=== PATIENT | female | born 1945 | race Caucasian/White ===

== ENCOUNTER 2024-01-21 15:17 | Inpatient (IN) | payer MEDICARE, OTHER, SELFPAY ==
[2024-01-21] VITALS (7 sets, daily range): BP systolic 129–180; BP diastolic 53–99; BMI 40.4
[2024-01-21 11:44] LABS: % Basophils 0.9 % (0-2); % Eosinophils 4.6 % (0-6); % Immature Granulocytes 1.4 % (0-0.5); % Lymphocytes 8.2 % (20.5-51.1); % Monocytes 6.3 % (1.7-9.3); % Neutrophils 78.6 % (42.2-75.2); Absolute Basophils 0.1 10^3/uL (0-0.2); Absolute Eosinophils 0.7 10^3/uL (0-0.7); Absolute Immature Granulocytes 0.2 10^3/uL (0-0.05); Absolute Lymphocytes 1.2 10^3/uL (1.2-3.4); Absolute Monocytes 0.9 10^3/uL (0.1-0.6); Absolute Neutrophils 11.6 10^3/uL (1.4-6.5); Hematocrit 34.9 % (37.0-47.0); Hemoglobin 11.1 g/dL (12.0-16.0); Mean Corp Hgb Conc. 31.8 g/dL (33.0-37.0); Mean Corpuscular Hgb 26.7 pg (27.0-31.0); Mean Corpuscular Volume 84.1 fL (81.0-99.0); Nucleated Red Blood Cells % 0.4 %; Red Blood Cell Count 4.15 10^6/uL (4.20-5.40); Red Cell Dist. Width 15.9 % (11.5-14.5); White Blood Cell Count 14.7 10^3/uL (4.8-10.8)
[2024-01-21 12:03] LABS: ALT (SGPT) 22 U/L (0-35); AST (SGOT) 34 U/L (14-36); Albumin 3.7 g/dl (3.5-5.0); Alkaline Phosphatase 141 U/L (38-126); Blood Urea Nitrogen 21 mg/dl (7-17); Carbon Dioxide 30 mmol/L (22-30); Chloride 103 mmol/L (98-107); Glucose 94 mg/dl (70-99); Potassium 4.8 mmol/L (3.5-5.1); Sodium 137 mmol/L (135-145); Total Bilirubin 0.8 mg/dl (0.2-1.3); Total Protein 7.5 g/dl (6.3-8.2); eGFR > 60.00
[2024-01-21 12:10] LABS: NT-proBNP 2650 pg/ml
[2024-01-21] MEDS: DILAUDID 0.5 MG IV (13:30)
[2024-01-21] MEDS: ZOSYN 50 IV ×2 (13:30→21:36)
--- NOTE | 2024-01-21 13:44 | ED.GENMED ---
History of Present Illness
General
Chief Complaint: Breathing Problem
Source: patient
Exam Limitations: none
Time Seen by Provider: 01/21/24 11:51
Nursing documentation reviewed up to this point in time: agreed with
Travel History
Have you had any contact with someone who has COVID-19?: No
Do you have any symptoms of coronavirus? Fever > 100 degrees, chills, cough, shortness of breath, sore throat, loss of taste or smell, muscle aches, or headache?: No
History of Present Illness
History of Present Illness:
Patient with history of peripheral vascular disease, status post right lower extremity graft/bypass, presents to ED secondary to nonhealing left heel ulcer with surrounding erythema and swelling. Patient was evaluated in wound care center this
morning and subsequently referred to ED for further evaluation and treatment, including potential for need for IV antibiotics and vascular consultation, with concern for disruption in blood flow. Patient denies fever or chills. Denies chest pain.
Denies shortness of breath. Denies nausea or vomiting. Denies trauma.
Past History
Past History
ED Past Medical History: CAD, HTN, Hypercholesterolemia and Other (OA/RA,)
ED Past Surgical History: Cardiac and Orthopedic
Social History
Tobacco: Non-smoker
Living: with family
Review of Systems
Review of Systems
Allergies reviewed?: Yes
All Other Systems: ROS reviewed and negative except as documented in HPI and ROS
Constitutional: Reports no symptoms
EENT: Reports no symptoms
Respiratory: Reports no symptoms
Cardiac: Reports no symptoms
ABD/GI: Reports no symptoms
: Reports no symptoms
Musculoskeletal: Reports edema
Skin: Reports other (heel ulcer)
Neurological: Reports no symptoms
Phy Exam
Physical Exam
Physical Exam:
Physical Exam
General: mild distress, not acutely ill. afebrile. obese
Head: nc/at. eomi
Neck: supple. no meningeal signs.
Heart: s1/s2 regular rate and rhythm, no murmur. equal radial pulses.
Lungs: no acute respiratory distress. clear bilaterally
Abdomen: normal bowel sounds. not tender.
Neuro: alert and oriented. no focal neurological deficits
Skin: an approx 1cm diameter open ulcer noted over left heel without active drainage, with surrounding erythema, extending upto knee, with tenderness. clear blisters noted on top of left foot, painful to touch. open
ulcer, approx 2cm diameter, noted over right ankle, below medial malleolus, without swelling or drainage. chronic decub noted over upper buttock.
Psychiatric: well kept. interactive and cooperative
Extremities: LLE b/l edema.
Scores
Heart Failure Risk
Heart Failure Risk Score: Not Applicable
Course
Orders/Labs/Results
Orders:
Orders
01/21/24 11:05
EKG [Electrocardiogram (*1)] Urgent
Reason for Study: Shortness of Breath
EKG- Treatment ONCE
01/21/24 11:25
Complete Blood Count/With Diff Urgent
Comprehensive Metabolic Panel Urgent
NT-proBNP Urgent
Blood Culture Urgent
WILNER Source: Blood/Venous
Specimen Description:
01/21/24 11:58
CR Chest - 2 Views Urgent
Comment:
Reason For Exam: sob
01/21/24 13:08
HYDROmorphone [Dilaudid] 0.5 mg IV NOW STA
Piperacillin/Tazo 3.375 Gram [Zosyn] 3.375 gram in 50 ml IV NOW
01/21/24 13:32
Vancomycin [Vancocin] 1,500 mg 0.9% Sodium Chloride [Nss] 20 ml 0.9% Sodium Chloride 250 ml [Nss] 250 ml IV NOW
01/21/24 13:51
Ketorolac [Toradol] 15 mg .ROUTE .STK-MED ONE
01/21/24 13:56
Ketorolac [Toradol] 15 mg IV NOW STA
01/21/24 14:24
US Peripheral Arterial [US Periph Art LOWER Ext w MERRICK] Urgent
Comment:
Reason For Exam: LLE swelling/redness
01/21/24 14:49
Vascular Surgery Consult Routine
Consulting Provider: Atul Jean Baptiste III
Was physician already notified: Yes
Peripheral Venous Lwr Ext Bilat US [US Periph Venous LOWER Ext Carlos] Urgent
Comment:
Reason For Exam: lower ext edema
01/21/24 14:53
Admit/Transfer Patient As Directed
Co-Sign Provider:
Level of Care: Inpatient admission
Assign to:: Medical/Surgical
Physician / Group: Juliette
Diagnosis: LLE Cellulitis
Reason for Hospitalization: IV abx, Wound Consult, Vascular Consult
Expected length of stay greater than two midnights?: Yes
ELOS- Estimated Length of Stay in days: 3
I certify the patient meets the requirements for IP care: Yes
WOUND/OSTOMY CONSULT Routine
Reason for Consult: bilateral feet and buttocks wounds
01/21/24 14:57
Code Status As Directed
Resuscitation Status: Full Code
01/21/24 Dinner
2000 calorie (17 carb) Diabetic
At Your Request: Limited Participation
Diabetic Diet: Cholesterol Lowering
Sodium, 2 Gram
01/21/24 18:00
Atorvastatin [Lipitor] 80 mg PO QPM
01/21/24 18:33
Acetaminophen [Tylenol] 650 mg PO Q4HPRN PRN
Albuterol Nebs [Ventolin Nebules] 2.5 mg INH R Q4HPRN PRN
Dextrose 50%-Water [Dextrose 50% Syringe] 12.5 grams IV Q10CUSE PRN
Enoxaparin Sodium [Lovenox] 40 mg SC QPM
Escitalopram Oxalate [Lexapro] 20 mg PO QPM
Glucagon [GlucaGen] 1 mg IM PRN PRN
Insulin Aspart Corrective Low [Novolog Flexpen-Low Resistance] See Protocol SC AC
Oxycodone [Roxicodone] 5 mg PO Q4HPRN PRN
VANCOMYCIN Pharmacy to Dose [VANCOCIN Pharmacy to Dose] 1 each Pharmacy To Prepare [Call Pharmacy To Prepare] 0 ml IV PER PROTOCOL
01/21/24 18:33
Activity As Directed
Activity Level: Out of Bed- Chair
Bedside Glucose Monitoring As Directed
Frequency: AC&HS
Comment: Change to q6h if pt on TPN, tube feeding or not eating
I&O [Intake/ Output] As Directed
Frequency: q12h
Vital Signs As Directed
Frequency: Per unit guidelines
Weight As Directed
Frequency: Daily
Smoking Cessation Counseling [RESP] Routine
Ot Eval And Treat Routine
Pt Eval And Treat Routine
Activity Level: Out of Bed- Chair
DX Deep Vein Thrombosis Video Routine
01/21/24 20:00
Piperacillin/Tazo 3.375 Gram [Zosyn] 3.375 gram in 50 ml IV Q6H
01/21/24 22:00
Atenolol [Tenormin] 25 mg PO HS
01/22/24 08:00
Aspirin Low Dose EC [Aspir Low (Enteric Coated)] 81 mg PO DAILY
Furosemide [Lasix] 40 mg PO DAILY
Gabapentin [Neurontin] 100 mg PO DAILY
HydrALAZINE [Apresoline] 50 mg PO DAILY
ISOSORBIDE MONOnitrate ER [Imdur (Extended Release)] 60 mg PO DAILY
01/22/24 08:43
Basic Metabolic Panel IN AM
Complete Blood Count/No Diff IN AM
Glycohemoglobin (HgbA1c) IN AM
Abnormal Lab Results
01/21/24
11:25
WBC 14.7 H 10^3/uL
(4.8-10.8)
RBC 4.15 L 10^6/uL
(4.20-5.40)
Hgb 11.1 L g/dL
(12.0-16.0)
Hct 34.9 L %
(37.0-47.0)
MCH 26.7 L pg
(27.0-31.0)
MCHC 31.8 L g/dL
(33.0-37.0)
RDW 15.9 H %
(11.5-14.5)
Abs Immat Gran (auto) 0.2 H 10^3/uL
(0-0.05)
Absolute Neuts (auto) 11.6 H 10^3/uL
(1.4-6.5)
Absolute Monos (auto) 0.9 H 10^3/uL
(0.1-0.6)
Immature Gran % 1.4 H %
(0-0.5)
Neutrophils % 78.6 H %
(42.2-75.2)
Lymphocytes % 8.2 L %
(20.5-51.1)
BUN 21 H mg/dl
(7-17)
Alkaline Phosphatase 141 H U/L
(38-126)
01/21/24 11:25
01/21/24 11:25
Vital Signs
Initial and Last Documented VS:
Initial Vital Signs
Temp Pulse Resp BP Pulse Ox
98.6 F 58 16 173/68 98
01/21/24 11:01 01/21/24 11:01 01/21/24 11:01 01/21/24 11:01 01/21/24 11:01
Last Documented Vital Signs
Temp Pulse Resp BP Pulse Ox
98.1 F 62 16 168/63 91
01/22/24 07:15 01/22/24 07:15 01/22/24 07:15 01/22/24 07:15 01/22/24 07:15
MDM/Problems Addressed
MDM/Problems Addressed:
History and exam concerning for significant cellulitis, along with clinical concern for vascular insufficiency, especially in light of patient's previous history of PAD. Patient will be admitted for IV antibiotics, but will likely require vascular
consultation as inpatient.
Discussed with (vascular) - recommends arterial duplex with MERRICK, to evaluate for potential PAD
*Critical Care Note
Total Time (30-74mins, 75-104mins- exclusive of procedures): Not Applicable
ED Attending Note
-
Portions of this chart may have been created with voice recognition software.� Occasional wrong word or��sound alike� substitutions may have occurred due to the inherent limitations of voice recognition software.
Discharge Plan
Departure
Patient Disposition: Admit
Date of Disposition: 01/21/24
Time of Disposition: 13:52
Presentation/result/management discussed w/ accepting MD/DO: Hospitalist
Discharge Problem:
Cellulitis, Insufficiency, arterial, peripheral
Interventions
Interventions:
*Risk Screen - Suicide Last Done: 01/21/24 11:01
*General Assessment Last Done: 01/21/24 11:01
*Neglect/Abuse Screening Last Done: 01/21/24 11:01
ED- Fall Risk Assessment Last Done: 01/21/24 11:56
*ED COVID-19 Vaccine History Last Done: 01/21/24 11:01
*Nursing Disposition Last Done: 01/21/24 18:34
ED- Cardiac Assessment Last Done: 01/21/24 11:56
ED- Pulmonary Assessment Last Done: 01/21/24 11:56
Discharge Date and Time
Discharge Date/Time: 01/21/24 18:35
[2024-01-21] MEDS: TORADOL 15 MG IV (13:56)
[2024-01-21] MEDS: VANCOCIN 300 ML IV (13:57)
[2024-01-21] MEDS: VANCOCIN 300 MG IV (13:57)
--- NOTE | 2024-01-21 15:01 | HPS.HSE ---
Addendum entered and electronically signed by Netta Segovia MD 01/22/24 07:29:
I saw and examined the patient.
The RAILROAD FIRER's note was reviewed and I agree with the note.
Comment:
78 y/o female with PMH of PAD s/p recent right superficial femoral artery to peroneal artery bypass, COPD, CHF, type II diabetes mellitus, and CAD s/p stent placement in 2019; p/w new dime-sized wound on the patient's left heel. Admit for cellulitis
and likely L PAD.
Check BL arterial US and consult vascular.
Original Note:
Family Physician
-
Family Physician: Danilo Ortiz
Chief Complaint
-
Left Heel Wound
History of Present Illness
Patient is a 78 y/o female with PMH of PAD s/p recent right superficial femoral artery to peroneal artery bypass, COPD, CHF, type II diabetes mellitus, and CAD s/p stent placement in 2019 who present to the ED from wound care facility for suspected
cellulitis of left lower extremity. Patient follows at the wound care monthly. Today patient was noted to have a new dime-sized wound on patient's left heel. Left lower foot was noted with increased erythema and edema, therefore she was referred to
the emergency department for evaluation. She denies fevers, sweats or chills.
Medical History
Past Medical History
Past Medical History: Reports Other
Additional Past Medical History:
Peripheral Artery Disease s/p Right Superficial Femoral Artery to Peroneal Artery Bypass
Coronary Artery Disease s/p SINDHU
Chronic Diastolic Hearty Failure
Essential Hypertension
Hyperlipidemia
Diabetes Mellitus, Type II
COPD
Hepatic Steatosis
Rheumatoid Arthritis
Anxiety/Depression
Overactive Bladder
Class II Obesity
Past Surgical History: Reports Other
Additional Past Surgical History:
Cardiac Stent
Right SFA to Peroneal Artery Bypass
Bilateral Knee Replacement
Lumbar Laminectomy
Social History
Tobacco: Smoker (1/2 ppd)
Alcohol: Daily (3 glasses of wine )
Family History
Family History: Not pertinent
Allergies / Home Medications
Allergies reflects when Allergies were last updated in [employer].
Home Medications with original date entered in [employer]
Allergy/Medication List:
Allergies
Allergy/AdvReac Type Severity Reaction Status Date / Time
amlodipine Allergy Rash Verified 01/21/24 11:01
cat dander Allergy SNEEZING Verified 01/21/24 11:01
house dust Allergy SNEEZING Verified 01/21/24 11:01
levofloxacin [From Levaquin] Allergy foot and Verified 01/21/24 11:01
ankle
swelling
mold Allergy SNEEZING Verified 01/21/24 11:01
pollen extracts Allergy HAYFEVER-SN Verified 01/21/24 11:01
EEZING
venom-honey bee Allergy BEE Verified 01/21/24 11:01
[id number]
NOT CARRY
EPI PEN
Home Medications
atenolol 25 mg tablet 25 mg PO HS Blood pressure 04/30/20
atorvastatin 10 mg tablet 80 mg PO QPM High cholesterol 04/30/20
isosorbide mononitrate 60 mg tablet,extended release 24 hr 60 mg PO DAILY Heart disease/condition 04/30/20
aspirin 81 mg tablet,delayed release 81 mg PO DAILY Blood Clot Prevention/Tx 12/15/21
escitalopram oxalate 20 mg tablet 20 mg PO QPM Depression 12/15/21
Garlique 1 tab PO DAILY Supplement 09/27/23
Probiotic 1 gummy PO DAILY Supplement 09/27/23
Vitamin D3 1 tab PO DAILY Supplement 09/27/23
albuterol sulfate 90 mcg/actuation aerosol inhaler 2 puff inhalation Q4H PRN shortness of breath 09/27/23
coffee extract 100 mg-phosphatidyl serine 100 mg capsule (Neuriva Original) 1 cap PO DAILY Supplement 09/27/23
multivitamin 1 tab PO DAILY Supplement 09/27/23
acetaminophen 325 mg tablet 650 mg PO Q4HPRN PRN mild pain or temp > 100.4 F #30 tabs 10/15/23
bisacodyl 10 mg rectal suppository 10 mg TN DAILYPRN PRN constipation #12 ea 10/15/23
bisacodyl 5 mg tablet,delayed release 10 mg PO DAILYPRN PRN Constipation #30 tabs 10/15/23
furosemide 40 mg tablet 40 mg PO DAILY HF #30 tabs 10/15/23
gabapentin 100 mg capsule 100 mg PO DAILY Neuropathy 01/21/24
hydralazine 50 mg tablet 50 mg PO DAILY HTN 01/21/24
Review of Systems
-
A 12 point ROS was completed and negative except as noted: Yes
Constitutional: Denies Fever or Chills
Respiratory: Denies Cough or Trouble Breathing
Cardiac: Denies Chest Pain or Palpitations
Physical Exam
Vital Signs
Vital Signs
Temp Pulse Resp BP Pulse Ox
98.6 F 59 24 180/57 92
01/21/24 11:01 01/21/24 14:15 01/21/24 14:15 01/21/24 12:00 01/21/24 13:00
Physical Exam
General: Well Nourished and No Apparent Distress
HEENT: NormoCephalic, Moist mucous membranes and Atraumatic
Respiratory: Clear (anteriorly) and Non Labored Respirations
Cardiac: S1/S2 and Regular Rhythm
GI: Soft and Non Tender
Musculoskeletal: No Clubbing, No Cyanosis and Other (Bilateral lower ext edema)
Skin: Dry and Other (bilateral chronic venous stasis changes; bilateral erythema; increased warmth left lower extremity)
Neuro: Awake, Alert, Oriented and Nonfocal/grossly intact
Laboratory Results
-
01/21/24 11:25
01/21/24 11:25
Laboratory Results
Total Bilirubin 0.8 mg/dl (0.2-1.3) 01/21/24 11:25
AST 34 U/L (14-36) 01/21/24 11:25
ALT 22 U/L (0-35) 01/21/24 11:25
Alkaline Phosphatase 141 U/L (38-126) H 01/21/24 11:25
Data Reviewed
-
Lab Data: Labs Reviewed by me
Old Records: Reviewed
Impression/Plan
-
Left Lower Ext Cellulitis with Left Heel Wound concerning for Peripheral Arterial Disease
-Consult Wound Care
-Consult Vascular Surgery
-Check Arterial US with MERRICK
-Check Venous US
-Continue Vancomycin and Zosyn
Peripheral Artery Disease s/p Right Superficial Femoral Artery to Peroneal Artery Bypass
Coronary Artery Disease s/p SINDHU
-Continue Isosorbide
-Continue Aspirin
Chronic Diastolic Hearty Failure
-Continue Lasix
-Monitor Is&Os and Daily Weights
Essential Hypertension
-Continue atenolol and Hydralazine
Hyperlipidemia
-Continue atorvastatin
Diabetes Mellitus, Type II
-Check HgbA1c
-Monitor sugars and continue coverage insulin
Anxiety/Depression
-Continue Lexapro
Class II Obesity
-Affects all aspects of care
Tobacco Use Disorder
-Encourage smoking cessation
DVT proph: Lovenox
Code Status: Full Code
--- NOTE | 2024-01-21 16:13 | CON.VAS ---
Addendum entered and electronically signed by Atul Jean Baptiste III, MD 01/22/24 07:00:
This patient was seen and examined with ASTRID Whaley. I agree with the history and physical exam as well as the assessment and plan. I have the following additions:
Known to the vascular surgery service
Right lower extremity bypass for critical limb threatening ischemia in September
Residual right heel wound
Now with nonhealing wound to the left heel
Critical limb threatening ischemia, left lower extremity
Arterial studies reviewed. Severe peripheral arterial occlusive disease in the left lower extremity with SFA/pop occlusion.
Will plan for left lower extremity arteriogram and possible endovascular intervention on 01/24/2024
She may require open revascularization on the left leg as well
Signed:
Atul Jean Baptiste III, MD
[facility] Vascular Surgery
[phone] (cell)
Original Note:
Consultation
Consultation Request
Date/Time Consultation Performed: 01/21/24 1615
Requesting Provider: Ariel Carmen MD
Performing Provider: Elisa Crawford PA-C for Atul Jean Baptiste MD
Reason for Consultation: Chronic bilateral lower extremity wounds
Medical History
-
Chief Complaint: Bilateral lower extremity swelling, left leg cellulitis with wound
History of Present Illness:
This is a 78-year-old female with a known past medical history for CAD, CHF, COPD, hypertension, diabetes, obesity, peripheral artery disease, and hyperlipidemia who presents to the [place] ED with reports of worsening left lower extremity pain,
new left heel wound, erythema, and edema. HPI contributed by patient and caregiver Lelo at bedside. Patient and Lelo note that roughly 2 to 3 weeks ago patient began to experience worsening left lower extremity pain and swelling. Lelo endorses
that patient was unaware she was only taking half of her prescribed Lasix dose for roughly the past month. Patient is prescribed 40 mg of Lasix but had only been taking 20 mg of Lasix. Lelo suspects this highly contributed to patient's worsening
bilateral lower extremity swelling. Roughly a week ago patient noted worsening erythema and warmth throughout left lower extremity and then roughly 2 to 3 days ago she noted a new heel wound and blistering to the dorsum of her foot. Of note
patient is known to our service as she recently underwent right superficial artery to peroneal artery bypass with ipsilateral reverse greater saphenous on 10/06/[address] Flavio Cutler for ongoing ischemia and tissue loss. Patient caregiver endorse
that following bypass right lower extremity heel wound has been slowly progressing. Patient denies nausea, vomiting, fever, and chills. Patient endorses rest pain style discomfort at left lower extremity, and indicates that she sleeps in recliner
most nights because of pain and leaving the leg dependent significantly improves her discomfort.
Past Medical History
Past Medical History: CAD (PCI), CHF, COPD, HTN, NIDDM and Other (Hyperlipidemia, arthritis, overactive bladder, obesity, hepatic steatosis)
Past Surgical History: Cardiac (Cardiac PCI), Orthopedic (Bilateral knee replacement, lumbar laminectomy) and Other (Right superficial femoral artery to peroneal artery bypass with ipsilateral nonreversed greater saphenous vein 10/06/23)
Social History
Tobacco: Former Smoker
Alcohol: Daily
Allergies / Home Medications
Allergy/AdvReac Type Severity Reaction Status Date / Time
amlodipine Allergy Rash Verified 01/21/24 11:01
cat dander Allergy SNEEZING Verified 01/21/24 11:01
house dust Allergy SNEEZING Verified 01/21/24 11:01
levofloxacin [From Levaquin] Allergy foot and Verified 01/21/24 11:01
ankle
swelling
mold Allergy SNEEZING Verified 01/21/24 11:01
pollen extracts Allergy HAYFEVER-SN Verified 01/21/24 11:01
EEZING
venom-honey bee Allergy BEE Verified 01/21/24 11:01
[id number]
NOT CARRY
EPI PEN
Medication Instructions Recorded Confirmed Type
atenolol 25 mg tablet 25 mg PO HS Blood pressure 04/30/20 01/21/24 History
atorvastatin 10 mg tablet 80 mg PO QPM High cholesterol 04/30/20 01/21/24 History
isosorbide mononitrate 60 mg 60 mg PO DAILY Heart 04/30/20 01/21/24 History
tablet,extended release 24 hr disease/condition
aspirin 81 mg tablet,delayed 81 mg PO DAILY Blood Clot 12/15/21 01/21/24 History
release Prevention/Tx
escitalopram oxalate 20 mg tablet 20 mg PO QPM Depression 12/15/21 01/21/24 History
Garlique 1 tab PO DAILY Supplement 09/27/23 01/21/24 History
Probiotic 1 gummy PO DAILY Supplement 09/27/23 01/21/24 History
Vitamin D3 1 tab PO DAILY Supplement 09/27/23 01/21/24 History
albuterol sulfate 90 mcg/actuation 2 puff inhalation Q4H PRN 09/27/23 01/21/24 History
aerosol inhaler shortness of breath
coffee extract 100 mg-phosphatidyl 1 cap PO DAILY Supplement 09/27/23 01/21/24 History
serine 100 mg capsule (Neuriva
Original)
multivitamin 1 tab PO DAILY Supplement 09/27/23 01/21/24 History
acetaminophen 325 mg tablet 650 mg PO Q4HPRN PRN mild pain or 10/15/23 01/21/24 Rx
temp > 100.4 F #30 tabs
bisacodyl 10 mg rectal suppository 10 mg NM DAILYPRN PRN constipation 10/15/23 01/21/24 Rx
#12 ea
bisacodyl 5 mg tablet,delayed 10 mg PO DAILYPRN PRN Constipation 10/15/23 01/21/24 Rx
release #30 tabs
furosemide 40 mg tablet 40 mg PO DAILY HF #30 tabs 10/15/23 01/21/24 Rx
gabapentin 100 mg capsule 100 mg PO DAILY Neuropathy 01/21/24 01/21/24 History
hydralazine 50 mg tablet 50 mg PO DAILY HTN 01/21/24 01/21/24 History
Review of Systems
-
History Source: Patient
Constitutional: Reports No Symptoms
EENT: Reports No Symptoms
Respiratory: Reports No Symptoms
Cardiac: Reports No Symptoms
Vascular: Reports Leg Pain / Claudication and Other (Left lower extremity rest pain)
Abdomen/GI: Reports No Symptoms
: Reports No Symptoms
Musculoskeletal: Reports No Symptoms
Skin: Reports Other (Left leg cellulitis, with blistering of dorsum foot, bilateral heel wound)
Physical Exam
Vital Signs
Temp Pulse Resp BP Pulse Ox
98.6 F 63 19 144/56 89
01/21/24 11:01 01/21/24 15:00 01/21/24 15:00 01/21/24 14:17 01/21/24 14:38
Lab Results
01/21/24 11:25
01/21/24 11:25
Sle-[id number]-[id number] Pept 2650 pg/ml 01/21/24 11:25
Physical Exam
General: No Apparent Distress and Comfortable
HEENT: Normocephalic, Anicteric and Atraumatic
Respiratory: Non Labored Respirations
Cardiac: Negative JVD
GI: Soft, Non Tender, Non Distended and Other (Rotund)
Musculoskeletal: Edema (Bilateral +2 edema)
Skin: Warm and Other (Bilateral heel wounds)
Neuro: AO x 3
Pulses: Bilateral Femoral: +1, Right Dorsalis Pedis: Doppler (Unable to assess left DP due to blistering on the dorsum) and Bilateral Posterior Tibial: Doppler
Assessment / Plan
-
Assessment: 78-year-old female with peripheral artery disease presenting with new onset left heel wound and left leg pain
Plan:
Will obtain arterial duplex MERRICK/TBI for initial evaluation of peripheral artery disease
Pain management per primary team
Surgery plan per attending
I performed this shared service with the attending. I evaluated the patient [id number] and have entered clinical documentation as shown in the encounter note. I performed the following component(s): history and physical exam. Note that medical
decision making is not final until attested by vascular attending.
--- NOTE | 2024-01-21 16:23 | WOUNDNOTE ---
LEFT HEEL WOUND 1947 MR [id number]
--- NOTE | 2024-01-21 16:25 | WOUNDNOTE ---
BILATERAL LE 1945 MR [id number]
--- NOTE | 2024-01-21 16:26 | WOUNDNOTE ---
RIGHT HEEL1947 MR [id number]
--- NOTE | 2024-01-21 16:26 | WOUNDNOTE ---
SACRUM 1945 MR [id number]
--- NOTE | 2024-01-21 16:40 | WOUNDNOTE ---
WOC RN note: Patient sent over from [facility] with worsening SOB, LE edema, draining wounds. Vascular has also been consulted as patient has had a right SFA in the past. Patient was accompanied by direct care worker and states she has VN for wound care 3x week.
Per her report, she does not always adhere to scheduled medications and wears compression intermittently. She sleeps in recliner at home.
See H&P for complete history.
PMH: Past Medical History:Peripheral Artery Disease s/p Right Superficial Femoral Artery to Peroneal Artery Bypass Coronary Artery Disease s/p SINDHU
HF, Essential Hypertension, Type 2 diabetes, COPD, hepatic steatosis, anxiety/depression, OAB, Obesity, Right SFA to Peroneal Artery Bypass
Bilateral Knee Replacement
Wound Location and type/assessment: Patient admitted with: Left heel stage 3 PI with blue/green drainage, macerated edges. Right heel with stage 2 PI, likely from shoes. Sacrum with stage 2 PI in buttock fold and scattered open areas on buttocks.
The buttocks are covered in thick layer of zinc ointment. Patient describes sleeping in chair and sliding. She uses a scooter as well to get around. Abdominal skin folds with MASD but no fungal appearing rash at this time. Patient has purwick in
place and uses a purwick at home.
Pressure redistribution devices in place: Static Air overlay added to bed. Fiber filled boots ordered.
Plan: Will recommend left heel wound be cleaned with Dakins daily and covered with alginate and foam dressing. Local wound care provided to right heel and sacrum. Instructed patient to avoid sliding in chair and to keep skin folds clean and dry.
Continue to assess skin folds for fungal appearing rash. Patient agreeable to try fiber filled boots. Boots were ordered to patients room. Vascular made aware that fiberfilled boots were ordered. Will confirm orders with hospitalist. Care plan and
discharge instructions updated. Will continue to follow as needed.
Recommend follow up at wound care center upon discharge.
[2024-01-21] MEDS: LEXAPRO 20 MG PO (18:56)
[2024-01-21] MEDS: LOVENOX 40 MG SC (18:56)
[2024-01-21] MEDS: LIPITOR 80 MG PO (18:56)
[2024-01-21] MEDS: ROXICODONE 5 MG PO (18:56)
[2024-01-21 18:59] LABS: Glucose - Point of Care 94 mg/dl (70-99)
[2024-01-21] MEDS: NOVOLOG FLEXPEN-LOW RESISTANCE SC (18:59)
--- NOTE | 2024-01-21 19:18 | PHA.VAN.IN ---
Assessment
- Assessment
Renal Function: Appears similar to baseline (09/27/23 SCR RANGED FROM 0.8-1.3 DURING VANCO ADMINISTRATION )
Concomitant Antimicrobials: ZOSYN
- Previous Dosing Experience
Previous Regimen: DOSING BY RANDOM LEVELS
Date of Regimen: 09/28/23
Provided Trough of: UNKNOWN
Provided AUC of: UNKNOWN
Patient's SCR is: Similar to previous dosing experience
Patient's weight is: Elevated compared to previous dosing experience (09/28/23 WT = 95.25 KG)
Plan
- Plan
Initial / Loading Dose: 2GM
Maintenance Regimen: DOSING BY RANDOM LEVELS
Monitoring: RANDOM VANCOMYCIN LEVEL 01/22/24 AM
Pharmacokinetics Vancomycin I
- -
Patient Age: 78
Patient Sex: Female
Vancomycin Day #: 1
Indication: Skin And Soft Tissue (LLE CELLULITIS/[L] HEEL WOUND )
Height / Weight:
Height 5 ft 4 in
Actual Weight 106.594 kg
Pertinent Past Medical History: SCR SPIKED WITH PRIOR VANCO DOSING
- Vital Signs / Lab Results
Temp Pulse Resp BP Pulse Ox
98.6 F 63 18 147/65 98
01/21/24 19:06 01/21/24 19:06 01/21/24 19:06 01/21/24 19:06 01/21/24 19:06
Lab Results - Hematology
01/21/24
11:25
WBC 14.7 H
Lab Results - Chemistry
01/21/24
11:25
BUN 21 H
Creatinine 0.9
Albumin 3.7
[2024-01-21] MEDS: VANCOCIN HCL 500 MG 100 IV (20:14)
[2024-01-21] MEDS: TENORMIN 25 MG PO (21:43)
[2024-01-21 22:30] LABS: Glucose - Point of Care 111 mg/dl (70-99)
[2024-01-22 00:49] VITALS: BP 129/99
[2024-01-22] MEDS: ZOSYN 50 IV ×4 (01:51→19:46)
[2024-01-22] MEDS: ROXICODONE 5 MG PO ×4 (01:53→23:27)
[2024-01-22] MEDS: VENTOLIN NEBULES 2.5 MG INH (02:14)
[2024-01-22 05:50] VITALS: BMI 40.7
[2024-01-22 07:15] VITALS: BP 168/63
[2024-01-22 08:00] LABS: Glucose - Point of Care 100 mg/dl (70-99)
[2024-01-22] MEDS: NOVOLOG FLEXPEN-LOW RESISTANCE SC ×3 (08:07→17:29)
[2024-01-22] MEDS: IMDUR (EXTENDED RELEASE) 60 MG PO (08:44)
[2024-01-22] MEDS: ASPIR LOW (ENTERIC COATED) 81 MG PO (08:44)
[2024-01-22] MEDS: APRESOLINE 50 MG PO (08:44)
[2024-01-22] MEDS: NEURONTIN 100 MG PO ×3 (08:44→21:30)
[2024-01-22] MEDS: LASIX 40 MG PO (08:44)
[2024-01-22] MEDS: DAKIN'S SOLUTION 0.125% 1/4 STRENGTH 473 ML TOPICAL (08:47)
[2024-01-22 09:05] LABS: Hematocrit 31.6 % (37.0-47.0); Hemoglobin 9.7 g/dL (12.0-16.0); Mean Corp Hgb Conc. 30.7 g/dL (33.0-37.0); Mean Corpuscular Hgb 26.6 pg (27.0-31.0); Mean Corpuscular Volume 86.6 fL (81.0-99.0); Mean Platelet Volume 10.6 fL (7.4-10.4); Platelet Count 480 10^3/uL (130-400); Red Blood Cell Count 3.65 10^6/uL (4.20-5.40); Red Cell Dist. Width 15.8 % (11.5-14.5); White Blood Cell Count 14.9 10^3/uL (4.8-10.8)
[2024-01-22 09:24] LABS: Vancomycin Random 15.3 ug/ml
[2024-01-22 09:28] LABS: Blood Urea Nitrogen 19 mg/dl (7-17); Calcium 8.4 mg/dl (8.4-10.2); Carbon Dioxide 29 mmol/L (22-30); Chloride 102 mmol/L (98-107); Estimated Creatinine Clearance 57 ml/min; Glucose 85 mg/dl (70-99); Potassium 4.4 mmol/L (3.5-5.1); Sodium 134 mmol/L (135-145); eGFR 58.39
[2024-01-22 09:39] LABS: Glycohemoglobin (HgbA1c) 5.9 % (4.0-5.6)
--- NOTE | 2024-01-22 11:04 | PHA.VAN.FU ---
Vancomycin Assessment / Plan
- Assessment
Renal Function: Stable
WBC's are: Trending Up
In the past 24 hrs, patient has been: Afebrile
Concomitant Antimicrobials: piperacillin/tazobactam
- Assessment - Therapeutic Drug Monitoring
Random Level: 15.3 - ( after 2000 mg split loading dose 01/21/24)
- Dosing Plan
Continue: dose by random level
Dosing by Level: Re-dose today (1000 mg x 1 dose)
per last admission; pt does not seem to follow population kinetics, will follow closely
- Monitoring Plan
Random Level: repeat random level am 01/23/24
- Follow Up
Pharmacy will continue to follow.
Vancomycin Follow UP
- -
Patient Age: 78
Patient Sex: Female
Vancomycin Day #: 2
Indication: Skin And Soft Tissue (LLE CELLULITIS/[L] HEEL WOUND )
Height / Weight:
Height 5 ft 4 in
Actual Weight 107.5 kg
Pertinent Past Medical History: SCR SPIKED WITH PRIOR VANCO DOSING
- Vital Signs / Lab Results
Temp Pulse Resp BP Pulse Ox
98.1 F 62 16 168/63 91
01/22/24 07:15 01/22/24 07:15 01/22/24 07:15 01/22/24 07:15 01/22/24 07:15
Lab Results - Hematology
01/21/24 01/22/24
11:25 08:43
WBC 14.7 H 14.9 H
Lab Results - Chemistry
01/21/24 01/22/24
11:25 08:43
BUN 21 H 19 H
Creatinine 0.9 1.0
Estimated Creat Clear 57
Albumin 3.7
Therapeutic Drug Monitoring
Random Vancomycin 15.3 ug/ml 01/22/24 08:43
[2024-01-22 11:58] VITALS: O2SAT 92
[2024-01-22 11:58] LABS: Glucose - Point of Care 146 mg/dl (70-99)
--- NOTE | 2024-01-22 12:29 | W.PN.HOSP.TC ---
Today's Communication/Plan
-
see A/P
Assessment / Plan
Assessment / Plan
HPI: 78 y/o female with PMH of PAD s/p recent right superficial femoral artery to peroneal artery bypass, COPD, CHF, type II diabetes mellitus, CAD s/p stent placement in 2018; presented to the ED from wound care facility for suspected cellulitis of
left lower extremity over the heel area. Left lower foot was noted with increased erythema and edema, therefore she was referred to the emergency department for evaluation.�
She denied fevers, sweats or chills.
A/P:
# Left Lower Ext Cellulitis with nonhealing Left Heel Wound
# Critical limb threatening ischemia of left lower extremity
Consult Wound Care
Vascular Surgery on board, recc left lower extremity arteriogram and possible endovascular intervention on Wednesday01/24/2024. She may require open revascularization on the left leg as well
Of note, Venous US negative for DVT
For now, continue Vancomycin and Zosyn
Pain control with gabapentin (increased from 100 mg HS to TID), added oxycodone and IV Morphine PRN
# h/o Recent Right lower extremity bypass for critical limb threatening ischemia in September 2023
# Residual right heel wound
# Coronary Artery Disease s/p SINDHU
Continue Isosorbide
Continue Aspirin
# Chronic Diastolic Hearty Failure
Continue Lasix
Monitor Is&Os and Daily Weights
# Essential Hypertension
Continue atenolol and Hydralazine
# Hyperlipidemia
Continue atorvastatin
# Diabetes Mellitus, Type II
HgbA1c 5.9%
Monitor sugars and continue coverage insulin
# Anxiety/Depression
Continue Lexapro
# Class II Obesity
Affects all aspects of care
# Tobacco Use Disorder
Encourage smoking cessation
# Mild hyponatremia
Monitor
DVT proph: Lovenox SQ
Code Status: Full Code
DW production control analyst on the phone
total time spent 51 min
Anticipated Discharge: > 48 hours
Subjective/Interval History
-
Date of Service: January 22, 2024
Objective Data
-
Labs:
Laboratory Results
01/22/24
08:43
WBC 14.9 H
Hgb 9.7 L
Hct 31.6 L
Plt Count 480 H
Sodium 134 L
Potassium 4.4
Chloride 102
Carbon Dioxide 29
BUN 19 H
Creatinine 1.0
Glucose 85
Calcium 8.4
Vital Signs:
Vital Signs
Temp Pulse Resp BP Pulse Ox
36.7 C 62 16 168/63 91
01/22/24 07:15 01/22/24 07:15 01/22/24 07:15 01/22/24 07:15 01/22/24 07:15
I&O
01/21/24 01/22/24 01/23/24
06:59 06:59 07:59
Intake Total 270 / 270
Output Total 250 / 250
Balance 20 / 20
Review of Systems
-
Neuro: Reports Other (LLE shooting pain)
Physical Exam
-
General: Well Developed, Well Nourished, No Apparent Distress, Conversant and Appears Chronically Ill
HEENT: Normocephalic and Atraumatic
Respiratory: Clear to Auscultation and Non Labored Respirations; Negative Accessory Resp Muscle Use
Cardiac: Regular Rhythm and S1/S2; Negative Murmur or Rub
GI: Soft, Nontender and Nondistended
Musculoskeletal: Edema, Right Lower Extrem and Edema, Left Lower Extrem
Neuro: Awake, Alert and Oriented
Psych: Calm and Intact Judgement/Insight
Data Reviewed
-
Ultrasound: Report Reviewed by me
Labs: Labs Reviewed by me
[2024-01-22] MEDS: MORPHINE SULFATE 1 MG IV ×2 (13:20→19:42)
[2024-01-22] MEDS: FLUSH (NSS) 2 FLUSH IV (13:21)
[2024-01-22] MEDS: VANCOCIN 200 IV (13:23)
[2024-01-22 14:05] VITALS: BP 148/49; BP 152/45; PULSE 60; O2SAT 92
--- NOTE | 2024-01-22 14:07 | CM ---
CM following re: discharge planning.
Reviewed pt's chart, met with pt.
Pt is a 78 year old female, admitted with primary dx of Left Lower Ext Cellulitis with nonhealing Left Heel Wound.
Pt reports she has been living at [facility] independent apartment and supposed to move today to their [facility] personal care. Pt reports she uses a scooter all the time and staff helps her to transfer from a bed to a scooter. Pt reports she has
supportive son Danilo [phone]. Pt reports she has caregiver services provided by [facility], caregiver Lelo [phone]. Pt reports she went to [facility] a few months ago and pt expressed her negative experience and pt stated
she will never ever goes to any SNF again. Pt made it very clear she will return back to [facility] to their personal care [place] with VN services and resumptions of [facility] caregiver services.
PCP: Danilo Ortiz
Pharmacy: [facility].
D/C plan: per pt's strong request, back to her living arrangements at [facility] with VN services and [facility] of [facility] caregiver services. Pt stated her caregiver Lelo will transport her home at discharge.
CM will follow with discharge plan updates as hospitalization progresses
[2024-01-22 15:12] VITALS: BP 147/48
[2024-01-22] MEDS: LEXAPRO 20 MG PO (16:50)
[2024-01-22] MEDS: LOVENOX 40 MG SC (16:50)
[2024-01-22 17:13] LABS: Glucose - Point of Care 93 mg/dl (70-99)
[2024-01-22] MEDS: LIPITOR 80 MG PO (17:29)
[2024-01-22] MEDS: TENORMIN 25 MG PO (21:30)
[2024-01-22 21:41] LABS: Glucose - Point of Care 93 mg/dl (70-99)
[2024-01-22 23:27] VITALS: BP 129/42
[2024-01-23] MEDS: ZOSYN 50 IV ×4 (01:33→21:29)
[2024-01-23] MEDS: MORPHINE SULFATE 1 MG IV ×2 (01:42→07:29)
[2024-01-23 06:00] VITALS: BMI 40.1
[2024-01-23 07:28] LABS: Hematocrit 30.1 % (37.0-47.0); Hemoglobin 9.6 g/dL (12.0-16.0); Mean Corp Hgb Conc. 31.9 g/dL (33.0-37.0); Mean Corpuscular Hgb 27.1 pg (27.0-31.0); Mean Platelet Volume 10.5 fL (7.4-10.4); Platelet Count 453 10^3/uL (130-400); Red Blood Cell Count 3.54 10^6/uL (4.20-5.40); Red Cell Dist. Width 15.7 % (11.5-14.5); White Blood Cell Count 14.6 10^3/uL (4.8-10.8)
[2024-01-23] MEDS: LASIX 40 MG PO (07:29)
[2024-01-23] MEDS: IMDUR (EXTENDED RELEASE) 60 MG PO (07:29)
[2024-01-23] MEDS: ASPIR LOW (ENTERIC COATED) 81 MG PO (07:29)
[2024-01-23] MEDS: NEURONTIN 100 MG PO ×3 (07:29→21:35)
--- NOTE | 2024-01-23 07:30 | PTCARENOTE ---
Pt c/o of severe pain to left foot this am and throughout the day. Left fiber placed on pt and medicated with morphine 1mg for 10/10pain. Roxicodone 5mg po administered in between for additional comfort. Pt states that pain never leaves her foot.
Will cont to monitor.
[2024-01-23] MEDS: FLUSH (NSS) 2 FLUSH IV ×4 (07:31→17:03)
--- NOTE | 2024-01-23 07:35 | W.PN.UPDATE ---
Update Note
Progress Note Update
Planning for LLE angio with possible endo intervention 01/24/24
Discussed wtih patient who agrees to proceed.
Attempted to call caregiver Lelo. Steve HAM.
[2024-01-23] MEDS: VENTOLIN NEBULES 2.5 MG INH (07:44)
[2024-01-23 07:46] LABS: Glucose - Point of Care 97 mg/dl (70-99)
[2024-01-23 07:49] LABS: Vancomycin Random 15.4 ug/ml
[2024-01-23 07:53] VITALS: BP 162/52
[2024-01-23 07:58] LABS: Blood Urea Nitrogen 19 mg/dl (7-17); Calcium 8.6 mg/dl (8.4-10.2); Carbon Dioxide 29 mmol/L (22-30); Chloride 98 mmol/L (98-107); Estimated Creatinine Clearance 52 ml/min; Glucose 92 mg/dl (70-99); Potassium 4.2 mmol/L (3.5-5.1); Sodium 134 mmol/L (135-145); eGFR 52.08
[2024-01-23] MEDS: NOVOLOG FLEXPEN-LOW RESISTANCE SC ×2 (08:11→17:00)
--- NOTE | 2024-01-23 08:39 | PHA.VAN.FU ---
Vancomycin Assessment / Plan
- Assessment
Renal Function: SCR Increasing (0.9->1.0->1.1)
WBC's are: Stable (~15)
In the past 24 hrs, patient has been: Afebrile
Concomitant Antimicrobials: piperacillin/tazobactam
- Assessment - Therapeutic Drug Monitoring
Random Level: 15.4 - after 1000 mg dose 01/22/24 13:33
- Dosing Plan
Continue: dose by random level
Dosing by Level: Re-dose today (750 mg x 1 dose)
Dosing Comments: reduced the dose to 750 mg due to incr SCr
- Monitoring Plan
Random Level: 01/24/24 0600
- Follow Up
Pharmacy will continue to follow.
Vancomycin Follow UP
- -
Patient Age: 78
Patient Sex: Female
Vancomycin Day #: 3
Indication: Skin And Soft Tissue (LLE CELLULITIS/[L] HEEL WOUND )
Height / Weight:
Height 5 ft 4 in
Actual Weight 105.914 kg
Pertinent Past Medical History: SCR SPIKED WITH PRIOR VANCO DOSING
- Vital Signs / Lab Results
Temp Pulse Resp BP Pulse Ox
98.7 F 55 16 162/52 93
01/23/24 07:53 01/23/24 07:53 01/23/24 07:53 01/23/24 07:53 01/23/24 08:13
Lab Results - Hematology
01/21/24 01/22/24 01/23/24
11:25 08:43 07:14
WBC 14.7 H 14.9 H 14.6 H
Lab Results - Chemistry
01/21/24 01/22/24 01/23/24
11:25 08:43 07:14
BUN 21 H 19 H 19 H
Creatinine 0.9 1.0 1.1 H
Estimated Creat Clear 57 52
Albumin 3.7
Microbiology Results
01/21/24 11:25 Blood Culture - Preliminary
Blood/Venous No Growth in 24 hours- Final report to follow
Therapeutic Drug Monitoring
Random Vancomycin 15.4 ug/ml 01/23/24 07:14
[2024-01-23] MEDS: APRESOLINE 50 MG PO (08:52)
[2024-01-23] MEDS: DAKIN'S SOLUTION 0.125% 1/4 STRENGTH 473 ML TOPICAL (08:52)
[2024-01-23] MEDS: VANCOCIN 150 IV (09:13)
[2024-01-23] MEDS: ROXICODONE 5 MG PO ×2 (10:59→20:18)
[2024-01-23 11:49] LABS: Glucose - Point of Care 163 mg/dl (70-99)
[2024-01-23] MEDS: NOVOLOG FLEXPEN-LOW RESISTANCE 1 UNITS SC (12:43)
--- NOTE | 2024-01-23 13:08 | W.PN.HOSP.TC ---
Today's Communication/Plan
-
see A/P
pain control: one dose Dilaudid ordered, Morphine increased to 2 mg Q4H PRN
Assessment / Plan
Assessment / Plan
HPI: 78 y/o female with PMH of PAD s/p recent right superficial femoral artery to peroneal artery bypass, COPD, CHF, type II diabetes mellitus, CAD s/p stent placement in 2018; presented to the ED from wound care facility for suspected cellulitis of
left lower extremity over the heel area. Left lower foot was noted with increased erythema and edema, therefore she was referred to the emergency department for evaluation.�
She denied fevers, sweats or chills.
A/P:
# Left Lower Ext Cellulitis with nonhealing Left Heel Wound
# Critical limb threatening ischemia of left lower extremity
Consult Wound Care
Vascular Surgery on board, recc left lower extremity arteriogram and possible endovascular intervention on Wednesday01/24/2024. She may require open revascularization on the left leg as well
Of note, Venous US negative for DVT
For now, continue Vancomycin and Zosyn
Pain control with gabapentin (increased from 100 mg HS to TID), added oxycodone and IV Morphine PRN
# h/o Recent Right lower extremity bypass for critical limb threatening ischemia in September 2023
# Residual right heel wound
# Coronary Artery Disease s/p SINDHU
Continue Isosorbide
Continue Aspirin
# Chronic Diastolic Hearty Failure
Continue Lasix
Monitor Is&Os and Daily Weights
# Essential Hypertension
Continue atenolol and Hydralazine
# Hyperlipidemia
Continue atorvastatin
# Diabetes Mellitus, Type II
HgbA1c 5.9%
Monitor sugars and continue coverage insulin
# Anxiety/Depression
Continue Lexapro
# Class II Obesity
Affects all aspects of care
# Tobacco Use Disorder
Encourage smoking cessation
# Mild hyponatremia
Monitor
DVT proph: Lovenox SQ
Code Status: Full Code
Anticipated Discharge: > 48 hours
Subjective/Interval History
-
Date of Service: January 23, 2024
Objective Data
-
Labs:
Laboratory Results
01/23/24
07:14
WBC 14.6 H
Hgb 9.6 L
Hct 30.1 L
Plt Count 453 H
Sodium 134 L
Potassium 4.2
Chloride 98
Carbon Dioxide 29
BUN 19 H
Creatinine 1.1 H
Glucose 92
Calcium 8.6
Vital Signs:
Vital Signs
Temp Pulse Resp BP Pulse Ox
37.1 C 55 16 162/52 93
01/23/24 07:53 01/23/24 07:53 01/23/24 07:53 01/23/24 07:53 01/23/24 08:13
I&O
01/22/24 01/23/24 01/24/24
05:59 06:59 06:59
Intake Total
Output Total
Balance
Review of Systems
-
Neuro: Reports Other (LLE shooting pain)
Physical Exam
-
General: Well Developed, Well Nourished, No Apparent Distress, Conversant and Appears Chronically Ill
HEENT: Normocephalic and Atraumatic
Respiratory: Clear to Auscultation and Non Labored Respirations; Negative Accessory Resp Muscle Use
Cardiac: Regular Rhythm and S1/S2; Negative Murmur or Rub
GI: Soft, Nontender and Nondistended
Musculoskeletal: Edema, Right Lower Extrem and Edema, Left Lower Extrem
Neuro: Awake, Alert and Oriented
Psych: Calm and Intact Judgement/Insight
Data Reviewed
-
Ultrasound: Report Reviewed by me
Labs: Labs Reviewed by me
--- NOTE | 2024-01-23 14:00 | PTCARENOTE ---
A one time dose of Dilaudid 0.25mg Iv given for her increasing discomfort per MD order. Will cont to monitor.
[2024-01-23] MEDS: DILAUDID 0.25 MG IV (14:08)
[2024-01-23 14:42] VITALS: BMI 40.1
[2024-01-23 15:41] VITALS: BP 125/50
[2024-01-23 16:55] LABS: Glucose - Point of Care 129 mg/dl (70-99)
[2024-01-23] MEDS: LIPITOR 80 MG PO (17:01)
[2024-01-23] MEDS: LOVENOX 40 MG SC (17:01)
[2024-01-23] MEDS: MORPHINE SULFATE 2 MG IV ×2 (17:03→23:01)
[2024-01-23] MEDS: LEXAPRO 20 MG PO (17:04)
[2024-01-23] MEDS: NSS 1000 IV (17:05)
[2024-01-23] MEDS: TENORMIN 25 MG PO (21:29)
[2024-01-23 21:33] LABS: Glucose - Point of Care 95 mg/dl (70-99)
[2024-01-23 23:03] VITALS: BP 121/73
[2024-01-24] VITALS (15 sets, daily range): BP systolic 116–174; BP diastolic 39–63; BMI 39.7
[2024-01-24] MEDS: ZOSYN 50 IV ×4 (02:18→20:05)
[2024-01-24] MEDS: ROXICODONE 5 MG PO ×2 (02:19→20:18)
[2024-01-24 06:11] LABS: Glucose - Point of Care 94 mg/dl (70-99)
[2024-01-24] MEDS: MORPHINE SULFATE 2 MG IV ×3 (06:19→22:28)
[2024-01-24 06:43] LABS: Hematocrit 28.3 % (37.0-47.0); Mean Corp Hgb Conc. 31.8 g/dL (33.0-37.0); Mean Corpuscular Hgb 26.9 pg (27.0-31.0); Mean Corpuscular Volume 84.7 fL (81.0-99.0); Mean Platelet Volume 10.4 fL (7.4-10.4); Platelet Count 452 10^3/uL (130-400); Red Blood Cell Count 3.34 10^6/uL (4.20-5.40); Red Cell Dist. Width 15.9 % (11.5-14.5); White Blood Cell Count 14.7 10^3/uL (4.8-10.8)
[2024-01-24 07:01] LABS: Blood Urea Nitrogen 14 mg/dl (7-17); Calcium 8.5 mg/dl (8.4-10.2); Carbon Dioxide 30 mmol/L (22-30); Chloride 99 mmol/L (98-107); Estimated Creatinine Clearance 51 ml/min; Glucose 87 mg/dl (70-99); Potassium 4.1 mmol/L (3.5-5.1); Sodium 134 mmol/L (135-145); eGFR 52.08
[2024-01-24 08:14] LABS: Glucose - Point of Care 85 mg/dl (70-99)
[2024-01-24] MEDS: APRESOLINE 50 MG PO (08:16)
[2024-01-24] MEDS: IMDUR (EXTENDED RELEASE) 60 MG PO (08:17)
[2024-01-24] MEDS: NEURONTIN 100 MG PO ×3 (08:17→22:22)
[2024-01-24] MEDS: DAKIN'S SOLUTION 0.125% 1/4 STRENGTH 1 ML TOPICAL (08:17)
[2024-01-24] MEDS: LASIX 40 MG PO (08:18)
[2024-01-24] MEDS: ASPIR LOW (ENTERIC COATED) PO (08:31)
--- NOTE | 2024-01-24 09:44 | W.SUR.PREOP ---
Pre-Operative Surgical Note
-
I have examined this patient prior to the performance of the scheduled procedure.
The patient's condition is unchanged from the time of the current History and
Physical and the patient is able to undergo the scheduled procedure.
[2024-01-24 11:35] LABS: Glucose - Point of Care 90 mg/dl (70-99)
--- NOTE | 2024-01-24 11:44 | PHA.VAN.FU ---
Vancomycin Assessment / Plan
- Assessment
Renal Function: SCR Increasing (0.9-->1.0-->1.1-->1.1; plus angio totay 01/23)
WBC's are: Stable (14s)
In the past 24 hrs, patient has been: Afebrile
Concomitant Antimicrobials: piperacillin-tazobactam
- Assessment - Therapeutic Drug Monitoring
Random Level: 14.0 ~21 hours post 750 mg dose
- Dosing Plan
Continue: dose by level
Dosing by Level: Re-dose today (750 mg post vascular OR procedure)
Admission Sep 2023 - patient does no follow population kinetics; continue to dose by level, angio today 01/23.
- Monitoring Plan
Random Level: 3/12 am
- Follow Up
Pharmacy will continue to follow.
Vancomycin Follow UP
- -
Patient Age: 78
Patient Sex: Female
Vancomycin Day #: 4
Indication: Skin And Soft Tissue (LLE CELLULITIS/[L] HEEL WOUND )
Requesting Provider: EDWARD Lozano
Pertinent Antimicrobial Allergies:
levofloxacin [From Levaquin] Allergy (Verified 01/21/24 11:01) foot and ankle swelling
Height / Weight:
Height 5 ft 4 in
Actual Weight 104.961 kg
Pertinent Past Medical History: admission 10/07 PVD for angio; non-healing L heel wound
- Vital Signs / Lab Results
Temp Pulse Resp BP Pulse Ox
97.5 F 51 22 174/63 97
01/24/24 07:45 01/24/24 08:16 01/24/24 07:45 01/24/24 08:16 01/24/24 07:45
Lab Results - Hematology
01/21/24 01/22/24 01/23/24
11:25 08:43 07:14
WBC 14.7 H 14.9 H 14.6 H
01/24/24
06:21
WBC 14.7 H
Lab Results - Chemistry
01/21/24 01/22/24 01/23/24
11:25 08:43 07:14
BUN 21 H 19 H 19 H
Creatinine 0.9 1.0 1.1 H
Estimated Creat Clear 57 52
Albumin 3.7
01/24/24
06:21
BUN 14
Creatinine 1.1 H
Estimated Creat Clear 51
Albumin
Microbiology Results
01/21/24 11:25 Blood Culture - Preliminary
Blood/Venous No Growth in 72 hours- Final report to follow
Therapeutic Drug Monitoring
Random Vancomycin 14.0 ug/ml 01/24/24 06:21
[2024-01-24] MEDS: VENTOLIN NEBULES 2.5 MG INH (11:52)
--- NOTE | 2024-01-24 12:00 | CM ---
Addendum entered by Staci Odell 01/24/24 15:56:
Patient and son met with CM and physician. Reviewed options for discharge planning and provided listing of SNF options as well as information on Medicare.gov. Patient has no home O2 but is currently on O2. CM will continue to follow for discharge
planning needs.
Plan; TBD; personal care vs SNF pending functional assessments.
Addendum entered by Staci Odell 01/24/24 15:00:
CM spoke with the admissions at [address] [place] [address] . Per nursing they do expect patient to come to the personal care upon discharge. Their fax number is [phone].
Addendum entered by Staci Odell 01/24/24 12:28:
Patient out of room to OR for procedure per nursing.
Original Note:
[facility]. fax number [phone]. CM will continue to follow for discharge planning needs.
Plan; home with [facility] and care givers.
[2024-01-24] MEDS: NSS 1000 IV ×2 (12:19→14:09)
--- NOTE | 2024-01-24 12:57 | W.SUR.POST ---
Surgical Immediate Post Op
Note
Pre Op Diagnosis: PAD
Post Op Diagnosis: PAD
Procedure Performed: Diagnostic JESSICA nichole
Primary Surgeon: Ita
Anesthesia: Local and sedation
Estimated Blood Loss: 5cc
Fluids: See anesthesia flowsheet
Drains/Shunts: None
Specimens/Cultures: None
Doppler/Duplex/Angio (Y/N): Y
Complications: None
Operative Findings: No endovascular options
--- NOTE | 2024-01-24 13:53 | OR.RPT ---
Operative Report
Operative Report
Date of Operation: 01/24/2024
Pre Op Diagnosis:
1.) Critical limb ischemia, left lower extremity with nonhealing left heel wound
2.) Residual right heel wound following right lower extremity bypass
Post Op Diagnosis:
1.) Critical limb ischemia, left lower extremity with nonhealing left heel wound
2.) Residual right heel wound following right lower extremity bypass
Procedure:
1.) Selective catheterization of second-order lower extremity artery
2.) Diagnostic aortobiiliac arteriogram
3.) Diagnostic BILATERAL lower extremity arteriograms
4.) Ultrasound-guided percutaneous access to the right common femoral artery
Surgeon: Atul Jean Baptiste III, MD
Anesthesia: Sedation with local
Fluoroscopy:
6.5 min
95 mGy
39.43 Gy.cm2
Complications: None
Estimated Blood Loss: Less than 5 cc
History and Indications for Procedure: 78-year-old female with critical limb threatening ischemia of the left lower extremity manifested by nonhealing left heel wound. She also had a residual right heel wound following a right lower extremity
bypass in the fall 2022.
Procedure in Detail: Milly Alonzo was correctly identified and placed supine on the operating table. After adequate induction of anesthesia the bilateral groins were prepped and draped in the usual sterile fashion. A timeout was performed with the
nursing and anesthesia staff confirming the patient's identity as well as the nature and laterality of the procedure.
The right common femoral artery was identified under ultrasound guidance. The artery was patent and some calcified plaque was identified. The superior and inferior aspects of the femoral head were identified with radiographic guidance and marked at
the skin level. The proposed puncture site was infiltrated with local anesthesia. We saved a copy of the ultrasound image to the medical record. Under ultrasound guidance we accessed the right common femoral artery with a micropuncture needle and
upsized to a 5 Fr sheath over a [employer] wire. The wire and a [employer] hook flush catheter were advanced into the distal abdominal aorta and a diagnostic aorto-biiliac arteriogram was performed:
AORTO-ILIAC ARTERIOGRAM:
*Difficult to visualize due to abdominal obesity
Aorta: Calcified. Patent. No significant stenosis identified
Right common iliac artery: Calcified. Patent with no significant stenosis identified
Right external iliac artery: Calcified. Patent with no significant stenosis identified
Left common iliac artery: Calcified. Patent with no significant stenosis identified
Left external iliac artery: Calcified. Patent with no significant stenosis identified
Under roadmap guidance using a Glidewire and the [employer]ogame[employer]Grounded[employer] hook catheter we selected the left common iliac artery and then the external iliac artery. A catheter was tracked up and over the aortic bifurcation and placed in the distal external iliac
artery. A diagnostic left lower extremity arteriogram was then performed which demonstrated the following:
LEFT LOWER EXTREMITY:
Common femoral artery: Peripherally calcified. Patent with no significant stenosis identified
Profunda femoral artery: Patent with no significant stenosis identified
Superficial femoral artery: Diffusely calcified. Patent with areas of mild stenosis identified. Large collaterals off of the distal SFA just proximal to the occlusion.
Popliteal artery: Heavily calcified throughout. Significant bulky calcified plaque identified behind the knee. Popliteal artery occludes above the knee. Limited focal reconstitution behind the knee. Below the knee segment is occluded.
Anterior tibial artery: Occluded. Reconstitution of the distal anterior tibial artery and dorsalis pedis artery is identified from peroneal artery collaterals
Peroneal artery: Patent as the single tibial artery. At the ankle, posterior branches continued distally to reconstitute plantar branches in the foot and also supply flow to the heel.
Posterior tibial artery: Occluded. No meaningful distal reconstitution.
Satisfied with this diagnostic result the catheter was pulled from the right femoral sheath. A runoff arteriogram of the right lower extremity was then performed which demonstrated the following:
RIGHT LOWER EXTREMITY:
Common femoral artery: Peripherally calcified, patent with no stenosis identified
Profunda femoral artery: Patent with no stenosis identified
Superficial femoral artery: Patent proximal segment, proximal to the bypass.
BYPASS: Widely patent. Patent proximal anastomosis with no stenosis identified. Brisk flow. Patent distal anastomosis to the proximal peroneal artery with no stenosis identified.
Popliteal artery: Occluded
Anterior tibial artery: Occluded. Reconstitution of the distal anterior tibial artery and dorsalis pedis artery is identified from peroneal artery collaterals.
Peroneal artery: Patent. No stenosis identified. Posterior collaterals at the ankle supply the heel and reconstitute plantar branches in the foot. Anterior branches reconstitute the distal anterior tibial artery and dorsalis pedis artery.
Posterior tibial artery: Occluded. No meaningful distal reconstitution.
Satisfied with this result we concluded the procedure.
The patient tolerated the procedure well and was taken to the recovery area in stable condition.
Attestation: I was present and responsible for the entire procedure.
Signed:
Atul Jean Baptiste III, MD
[facility] Vascular Surgery
[phone] (bhcs)
--- NOTE | 2024-01-24 15:00 | PTCARENOTE ---
Received pt post LLE arteriogram with COURT WORKER, VSS, 4LO2 placed, extremity elevated, fluids and ABX running.
--- NOTE | 2024-01-24 15:53 | W.PN.HOSP.TC ---
Today's Communication/Plan
-
await next steps from vascular
Assessment / Plan
Assessment / Plan
pt is a 78 year old female
Left Lower Ext Cellulitis with nonhealing Left Heel Wound and Critical limb threatening ischemia of left lower extremity--apprec vascular and wound care--s/p diagnostic angiogram 01/23--await next steps--cont vanco/zosyn--cont gabapentin, oxycodone
and IV morphine PRN
h/o Recent Right lower extremity bypass for critical limb threatening ischemia in September 2023/Residual right heel wound
Coronary Artery Disease s/p SINDHU--Continue Isosorbide--Continue Aspirin
Chronic Diastolic Hearty Failure--Continue Lasix--Monitor Is&Os and Daily Weights
Essential Hypertension--Continue atenolol and Hydralazine
Hyperlipidemia--Continue atorvastatin
Diabetes Mellitus, Type II--HgbA1c 5.9%--Monitor sugars and continue coverage insulin
Anxiety/Depression--Continue Lexapro
Class II Obesity--Affects all aspects of care
Tobacco Use Disorder--Encourage smoking cessation
Mild hyponatremia
DVT proph: Lovenox SQ
Code Status: Full Code
Anticipated Discharge: > 48 hours
Subjective/Interval History
-
Date of Service: January 24, 2024
pt returned from all procedures/tests
Objective Data
-
Labs:
Laboratory Results
01/24/24
06:21
WBC 14.7 H
Hgb 9.0 L
Hct 28.3 L
Plt Count 452 H
Sodium 134 L
Potassium 4.1
Chloride 99
Carbon Dioxide 30
BUN 14
Creatinine 1.1 H
Glucose 87
Calcium 8.5
Vital Signs:
max temp for 24 hours
01/23/24
15:41
Temp 98.9 F
Vital Signs
Temp Pulse Resp BP Pulse Ox
97.3 F 56 18 141/61 93
01/24/24 15:00 01/24/24 15:00 01/24/24 15:00 01/24/24 15:00 01/24/24 15:00
I&O
01/23/24 01/24/24 01/25/24
06:59 06:59 06:59
Intake Total 880 / 880 100 / 100
Output Total 1200 / 1200
Balance -320 / -320 100 / 100
Review of Systems
-
All other systems: Reviewed and negative
Physical Exam
-
General: Well Developed, Well Nourished and No Apparent Distress
HEENT: Normocephalic, Atraumatic and Oxygen
Respiratory: Clear to Auscultation; Negative Wheezes or Rhonchi
Cardiac: Regular Rhythm, S1/S2 and Murmur
GI: Soft, Nontender, Nondistended and Normal Bowel Sounds
Musculoskeletal: No Clubbing, No Cyanosis and No Edema
Skin: Warm
Neuro: Awake and Alert
[2024-01-24] MEDS: VANCOCIN 150 IV (16:48)
[2024-01-24 17:02] LABS: Glucose - Point of Care 227 mg/dl (70-99)
[2024-01-24] MEDS: LOVENOX 40 MG SC (17:14)
[2024-01-24] MEDS: LEXAPRO 20 MG PO (17:14)
[2024-01-24] MEDS: LIPITOR 80 MG PO (17:17)
[2024-01-24] MEDS: NOVOLOG FLEXPEN-LOW RESISTANCE 2 UNITS SC (18:43)
[2024-01-24 21:44] LABS: Glucose - Point of Care 278 mg/dl (70-99)
[2024-01-24] MEDS: TENORMIN 25 MG PO (22:24)
[2024-01-25] MEDS: ZOSYN 50 IV ×2 (02:18→09:36)
[2024-01-25 03:51] VITALS: BP 124/43
[2024-01-25 06:00] VITALS: BMI 39.5
[2024-01-25 06:05] LABS: Hematocrit 29.9 % (37.0-47.0); Hemoglobin 9.1 g/dL (12.0-16.0); Mean Corp Hgb Conc. 30.4 g/dL (33.0-37.0); Mean Corpuscular Hgb 26.8 pg (27.0-31.0); Mean Corpuscular Volume 87.9 fL (81.0-99.0); Mean Platelet Volume 10.6 fL (7.4-10.4); Platelet Count 452 10^3/uL (130-400); Red Cell Dist. Width 15.7 % (11.5-14.5); White Blood Cell Count 16.1 10^3/uL (4.8-10.8)
[2024-01-25 06:20] LABS: Vancomycin Random 12.7 ug/ml
[2024-01-25 06:30] LABS: ALT (SGPT) 15 U/L (0-35); AST (SGOT) 20 U/L (14-36); Alkaline Phosphatase 117 U/L (38-126); Blood Urea Nitrogen 19 mg/dl (7-17); Calcium 8.5 mg/dl (8.4-10.2); Carbon Dioxide 30 mmol/L (22-30); Chloride 96 mmol/L (98-107); Estimated Creatinine Clearance 51 ml/min; Glucose 138 mg/dl (70-99); Magnesium 2.4 mg/dl (1.6-2.3); Potassium 4.3 mmol/L (3.5-5.1); Sodium 135 mmol/L (135-145); Total Bilirubin 0.5 mg/dl (0.2-1.3); Total Protein 6.4 g/dl (6.3-8.2); eGFR 52.08
[2024-01-25 07:23] LABS: Glucose - Point of Care 173 mg/dl (70-99)
[2024-01-25 07:30] VITALS: BP 129/43
--- NOTE | 2024-01-25 07:31 | PN.CDI ---
CDI
- -
CDI:
Physician Documentation Request
Admit Date: 01/21/24 15:17
Dear Doctor Doreen,
Please review the following and provide your response in the progress notes.
Clinical Indicators:
- 01/20 Wound note indicates:
- Stage 3 left heel pressure injury, POA
- Stage 2 right heel pressure injury, POA
- Stage 2 sacrum pressure injury, POA
Physician documentation of the type and location of wounds is required for compliant documentation. Based on the above clinical findings and your assessment, please provide the following in your progress note:
1. Location of the ulcer/wound, including laterality.
2. Type (etiology) of ulcer/wound:
- Diabetic ulcer
- Arterial (ischemic) ulcer
- Traumatic wound
- Venous stasis ulcer
- Pressure (decubitus) ulcer
- Non-healing surgical wound
- Other
- Unable to determine
3. For a non-pressure ulcer, please indicate the depth/severity:
- Limited to the breakdown of skin
- With fat layer exposed
- With necrosis of muscle
- With necrosis of bone
- Other
- Unable to determine
4. If a pressure ulcer, please also include the stage* of the ulcer:
- Stage 1 - Skin intact, non-blanchable redness
- Stage 2 - Partial thickness loss of dermis, includes intact or open blister
- Stage 3 - Full thickness tissue not including bone, tendon or muscle
- Stage 4 - Full thickness tissue loss, including exposed bone, tendon or muscle
- Unstageable - Full thickness loss in which the base of the ulcer is covered by slough (yellow, her, prajapati, green or brown) and/or eschar (her, brown or black) in the wound bed.
- Unable to determine
Use of terms such as suspected, likely, concern for, or probable (associated with a specific diagnosis that is being evaluated, monitored, or treated as if it exists) are acceptable and can be coded in the inpatient setting, when documented at the
time of discharge.
Thank you,
Alcides Nye RN
CDI Specialist
Please use your independent medical judgment in providing your response.
*Source: National Pressure Ulcer Advisory Panel (NPUAP)
[2024-01-25] MEDS: NOVOLOG FLEXPEN-LOW RESISTANCE SC ×3 (07:46→17:11)
--- NOTE | 2024-01-25 08:24 | W.PN.UPDATE ---
Update Note
Progress Note Update
Patient scheduled for lower extremity arterial bypass on . Patient and RN aware and agreeable.
[2024-01-25] MEDS: NEURONTIN 100 MG PO ×3 (09:35→22:30)
[2024-01-25] MEDS: ASPIR LOW (ENTERIC COATED) 81 MG PO (09:35)
[2024-01-25] MEDS: APRESOLINE 50 MG PO (09:35)
[2024-01-25] MEDS: IMDUR (EXTENDED RELEASE) 60 MG PO (09:35)
[2024-01-25] MEDS: LASIX 40 MG PO (09:35)
[2024-01-25] MEDS: DAKIN'S SOLUTION 0.125% 1/4 STRENGTH 473 ML TOPICAL (09:42)
[2024-01-25] MEDS: MORPHINE SULFATE 2 MG IV ×3 (09:45→22:30)
--- NOTE | 2024-01-25 10:02 | PHA.VAN.FU ---
Vancomycin Assessment / Plan
- Assessment
Renal Function: Stable
WBC's are: Trending Up
In the past 24 hrs, patient has been: Afebrile
Concomitant Antimicrobials: piperacillin/tazobactam
- Assessment - Therapeutic Drug Monitoring
Random Level: 12.7 - drawn ~13H after previous dose of 750mg
- Dosing Plan
Dosing by Level: Re-dose today (Vanc 1000mg)
- Monitoring Plan
Random Level: 01/25 0600
- Follow Up
Pharmacy will continue to follow.
Vancomycin Follow UP
- -
Patient Age: 78
Patient Sex: Female
Vancomycin Day #: 5
Indication: Skin And Soft Tissue
Requesting Provider: EDWARD Lozano
Pertinent Antimicrobial Allergies:
levofloxacin -foot and ankle swelling
Height / Weight:
Height 5 ft 4 in
Actual Weight 104.236 kg
Pertinent Past Medical History: BMI ~39, DM II, PAD
- Vital Signs / Lab Results
Temp Pulse Resp BP Pulse Ox
97.7 F 53 18 129/43 100
01/25/24 07:30 01/25/24 07:30 01/25/24 07:30 01/25/24 09:35 01/25/24 07:30
Lab Results - Hematology
01/22/24 01/23/24 01/24/24
08:43 07:14 06:21
WBC 14.9 H 14.6 H 14.7 H
01/25/24
05:39
WBC 16.1 H
Lab Results - Chemistry
01/22/24 01/23/24 01/24/24
08:43 07:14 06:21
BUN 19 H 19 H 14
Creatinine 1.0 1.1 H 1.1 H
Estimated Creat Clear 57 52 51
Albumin
01/25/24
05:39
BUN 19 H
Creatinine 1.1 H
Estimated Creat Clear 51
Albumin 3.0 L
Microbiology Results
01/21/24 11:25 Blood Culture - Preliminary
Blood/Venous No Growth in 72 hours- Final report to follow
Therapeutic Drug Monitoring
Random Vancomycin 12.7 ug/ml 01/25/24 05:39
[2024-01-25 11:25] VITALS: BP 125/48
--- NOTE | 2024-01-25 11:46 | W.PN.HOSP.TC ---
Today's Communication/Plan
-
await vascular bypass surgery
Assessment / Plan
Assessment / Plan
pt is a 78 year old female
Left Lower Ext Cellulitis with nonhealing Left Heel Wound and Critical limb threatening ischemia of left lower extremity--apprec vascular and wound care--s/p diagnostic angiogram 01/23--for bypass surgery --cont vanco/zosyn but appears
allergic to zosyn--consult ID--cont gabapentin, oxycodone and IV morphine PRN
chronic nonhealing wounds (POA)- Stage 3 left heel pressure injury, POA- Stage 2 right heel pressure injury, POA- Stage 2 sacrum pressure injury, POA
h/o Recent Right lower extremity bypass for critical limb threatening ischemia in September 2023/Residual right heel wound
Coronary Artery Disease s/p SINDHU--Continue Isosorbide--Continue Aspirin
Chronic Diastolic Hearty Failure--Continue Lasix--Monitor Is&Os and Daily Weights
Essential Hypertension--Continue atenolol and Hydralazine
Hyperlipidemia--Continue atorvastatin
Diabetes Mellitus, Type II--HgbA1c 5.9%--Monitor sugars and continue coverage insulin
Anxiety/Depression--Continue Lexapro
Class II Obesity--Affects all aspects of care
Tobacco Use Disorder--Encourage smoking cessation
Mild hyponatremia
DVT proph: Lovenox SQ
Code Status: Full Code
Anticipated Discharge: > 48 hours
Subjective/Interval History
-
Date of Service: January 25, 2024
pt without c/o
Objective Data
-
Labs:
Laboratory Results
01/25/24
05:39
WBC 16.1 H
Hgb 9.1 L
Hct 29.9 L
Plt Count 452 H
Sodium 135
Potassium 4.3
Chloride 96 L
Carbon Dioxide 30
BUN 19 H
Creatinine 1.1 H
Glucose 138 H
Calcium 8.5
Total Bilirubin 0.5
AST 20
ALT 15
Alkaline Phosphatase 117
Vital Signs:
max temp for 24 hours
01/24/24
19:21
Temp 97.6 F
Vital Signs
Temp Pulse Resp BP Pulse Ox
97.7 F 53 18 129/43 100
01/25/24 07:30 01/25/24 07:30 01/25/24 07:30 01/25/24 09:35 01/25/24 07:30
I&O
01/24/24 01/25/24 01/26/24
06:59 06:59 06:59
Intake Total 880 / 880 2000 / 2000
Output Total 1200 / 1200 700 / 700
Balance -320 / -320 1300 / 1300
Review of Systems
-
All other systems: Reviewed and negative
Physical Exam
-
General: Well Developed, Well Nourished and No Apparent Distress
HEENT: Normocephalic and Atraumatic
Respiratory: Clear to Auscultation; Negative Wheezes, Rales, Rhonchi or Crackles
Cardiac: Regular Rhythm and S1/S2; Negative Murmur
GI: Soft, Nontender, Nondistended and Normal Bowel Sounds
Musculoskeletal: No Clubbing, No Cyanosis, No Edema and Other (chronic wounds)
Skin: Rash (red blothcy areas on arm, chest--itchy)
Neuro: Awake
Psych: Calm
--- NOTE | 2024-01-25 11:55 | CM ---
Patient seen at bedside with physician. Patient for surgery per patient. CM will contniue to follow for discharge planning needs.
Plan; SNF vs personal care pending functional status
--- NOTE | 2024-01-25 12:03 | CON.ID ---
Consultation
-
Date/Time Consultation Requested: 01/25/2024, 1143
Date/Time Consultation Performed: 01/25/2024, 1205
Requesting Provider: Dr. Lucy Logan
Performing Provider: Dr. Elisa Cummins
Reason for Consultation: Cellulitis, rash on Zosyn
Chief Complaint / Past History
Chief Complaint
Left heel wound
History of Present Illness
78 year old female smoker, COPD, CAD, PAD s/p RLE bypass 09/2023 who developed enlarging non-healing wound on left heel. He saw Wound Care 01/20 who sent her to ED. She was started on Vancomycin and Zosyn. Diagnostic angiogram showed no endovascular
option. She is planned for bypass on 01/26. Today, pt developed rash over right forearm during Zosyn infusion. Rash is pruritic. She reports about 10 years ago, she was given penicillin at an Urgent Care and she developed leg swelling/redness. She
tolerated cephalosporins in the past.
Past History
Additional Past Medical History:
Hypertension
COPD
Rheumatoid arthritis
CAD status post stent
Fatty liver
Wheelchair-bound
Urinary incontinence
Depression/anxiety
PAD s/p R fem to peroneal artery bypass (10/06/23)
Chronic pain syndrome
Skin cancer excision
Overactive bladder
Urinary incontinence
Class III obesity BMI 39
Venous stasis
Alcohol use disorder
Tobacco abuse
Bilateral total knee replacement
Left total hip replacement
L5-S1 hemilaminectomy
Cervical spine surgery
Foot surgeries with hardware
Allergy History:
amlodipine Allergy (Verified 01/21/24 11:01)
Rash
cat dander Allergy (Verified 01/21/24 11:01)
SNEEZING
house dust Allergy (Verified 01/21/24 11:01)
SNEEZING
levofloxacin [From Levaquin] Allergy (Verified 01/21/24 11:01)
foot and ankle swelling
mold Allergy (Verified 01/21/24 11:01)
SNEEZING
pollen extracts Allergy (Verified 01/21/24 11:01)
HAYFEVER-SNEEZING
venom-honey bee Allergy (Verified 01/21/24 11:01)
BEE ERIJA-JINPOQON-QYLO NOT CARRY EPI PEN
Medications Reviewed: Yes
Current Antibiotics:
Zosyn d5
Vancomycin d5
Social History
Tobacco: Smoker (/2 ppd)
Alcohol: Daily (3 glasses of wine)
Drug: None
Living: With Family
Family History
Family History: Not Pertinent
Review of Systems
Review of Systems
General: Negative Fever, Chills or Change in Appetite
Respiratory: Negative Dyspnea or Cough
Gasteroenterology: Other (no diarrhea); Negative Nausea or Vomiting
Genital / Urological: Negative Dysuria or Flank Pain
Skin / Hair / Nails: Rash
Neurological: Negative Headache or Dizziness
All systems: All other systems were reviewed and were negative
Vital Signs
Temp Pulse Resp BP Pulse Ox
98.9 F 44 18 125/48 93
01/25/24 11:25 01/25/24 11:25 01/25/24 11:25 01/25/24 11:25 01/25/24 11:25
Physical Exam
Physical Exam
Constitutional: No Acute Distress and Obese
Eyes: No Conjunctival Hemorrhage and Sclera Anicteric
Cardiovascular: Regular Rate and S1/S2
Pulmonary: Clear
Gastrointestinal: Soft, Non Tender, Non Distended and Normal Bowel Sounds
Genito-Urinary: Negative CVA Tenderness
Extremities: Edema (BLE 1+)
Skin: Rash (right forearm - large area of erythroderma)
Wound: Other (Reviewed outpt 01/20 wound photo: left heel large wound with green-tinged exudate)
Neurological: AO x 3
Lab / Diagnostic Study Results
01/25/24 05:39
01/25/24 05:39
Abs Immat Gran (auto) 0.2 10^3/uL (0-0.05) H 01/21/24 11:25
Absolute Neuts (auto) 11.6 10^3/uL (1.4-6.5) H 01/21/24 11:25
Absolute Lymphs (auto) 1.2 10^3/uL (1.2-3.4) 01/21/24 11:25
Absolute Monos (auto) 0.9 10^3/uL (0.1-0.6) H 01/21/24 11:25
Absolute Basos (auto) 0.1 10^3/uL (0-0.2) 01/21/24 11:25
Immature Gran % 1.4 % (0-0.5) H 01/21/24 11:25
Neutrophils % 78.6 % (42.2-75.2) H 01/21/24 11:25
Lymphocytes % 8.2 % (20.5-51.1) L 01/21/24 11:25
Monocytes % 6.3 % (1.7-9.3) 01/21/24 11:25
Eosinophils % 4.6 % (0-6) 01/21/24 11:25
Basophils % 0.9 % (0-2) 01/21/24 11:25
Microbiology Results
Micro:
01/21/24 11:25 Blood Culture - Preliminary
Blood/Venous No Growth in 4 days- Final report to follow
01/21/24 CXR negative
01/21/24 R Foot XRAY: Soft tissue swelling. No definite radiographic evidence of osteomyelitis.�
Assessment / Plan
# Left heel wound infection. Suspect Pseudomonas infection (green-discoloration)
# PAD - for LLE bypass 01/27/24.
# Leukocytosis
# MRSA colonization.
# Drug rash from Zosyn
- DC Zosyn (d5)
-Start cefepime
- Continue Vancomycin (d5)
-Follow wbc.
--- NOTE | 2024-01-25 12:13 | PTCARENOTE ---
Addendum entered by Areli Pantoja RN 01/25/24 19:26:
pt given benadryl for itching this afternoon by this nurse. zosyn d/c. pt picking and scratching at self all day long prior to IV abx reaction. this nurse placed silicone border foams on now open areas. posterior and anterior R forearm, Left
anterior calf. Mid lower back. see worklist for new charting.
Original Note:
pt receiving IV zosyn through R forearm IV this morning. pt noted feeling itchy and was scratching around IV site. arm was red and swollen from itching and reaction. ID consulted per . pt oob with heavy two assist to chair and pt was inc of bowel
and bladder. purewick removed per this nurse early shift due to not being an appropriate candidate.
[2024-01-25 12:33] VITALS: PULSE 42; O2SAT 93
[2024-01-25 12:35] LABS: Glucose - Point of Care 125 mg/dl (70-99)
[2024-01-25] MEDS: VANCOCIN 200 IV (13:16)
[2024-01-25] MEDS: STERILE WATER FOR INJECTION 10 ML IV (15:10)
[2024-01-25] MEDS: MAXIPIME 2000 MG IV (15:10)
[2024-01-25] MEDS: BENADRYL 25 MG PO (15:10)
[2024-01-25 15:21] VITALS: BP 145/48
[2024-01-25 17:09] LABS: Glucose - Point of Care 145 mg/dl (70-99)
[2024-01-25] MEDS: LEXAPRO 20 MG PO (17:14)
[2024-01-25] MEDS: LIPITOR 80 MG PO (17:14)
[2024-01-25] MEDS: LOVENOX 40 MG SC (17:14)
[2024-01-25] MEDS: ROXICODONE 5 MG PO (19:35)
[2024-01-25] MEDS: VENTOLIN NEBULES 2.5 MG INH (19:58)
[2024-01-25 21:20] LABS: Glucose - Point of Care 101 mg/dl (70-99)
[2024-01-25] MEDS: TENORMIN 25 MG PO (22:30)
[2024-01-25 23:23] VITALS: BP 137/46
[2024-01-26] MEDS: MAXIPIME 2000 MG IV ×2 (01:57→15:00)
[2024-01-26] MEDS: STERILE WATER FOR INJECTION 10 ML IV ×2 (01:58→15:00)
[2024-01-26 05:03] LABS: Hematocrit 28.1 % (37.0-47.0); Hemoglobin 8.8 g/dL (12.0-16.0); Mean Corp Hgb Conc. 31.3 g/dL (33.0-37.0); Mean Corpuscular Hgb 26.8 pg (27.0-31.0); Mean Corpuscular Volume 85.7 fL (81.0-99.0); Mean Platelet Volume 10.7 fL (7.4-10.4); Platelet Count 445 10^3/uL (130-400); Red Blood Cell Count 3.28 10^6/uL (4.20-5.40); Red Cell Dist. Width 15.6 % (11.5-14.5); White Blood Cell Count 15.8 10^3/uL (4.8-10.8)
[2024-01-26 05:27] LABS: Vancomycin Random 16.8 ug/ml
[2024-01-26] MEDS: MORPHINE SULFATE 2 MG IV ×4 (05:40→23:47)
[2024-01-26 05:41] LABS: Blood Urea Nitrogen 22 mg/dl (7-17); Calcium 8.7 mg/dl (8.4-10.2); Carbon Dioxide 30 mmol/L (22-30); Chloride 98 mmol/L (98-107); Estimated Creatinine Clearance 56 ml/min; Glucose 86 mg/dl (70-99); Magnesium 2.3 mg/dl (1.6-2.3); Potassium 4.2 mmol/L (3.5-5.1); Sodium 135 mmol/L (135-145); eGFR 58.39
[2024-01-26 06:00] VITALS: BMI 39.3
[2024-01-26 07:15] VITALS: BP 145/54
[2024-01-26 07:37] LABS: Glucose - Point of Care 81 mg/dl (70-99)
[2024-01-26] MEDS: NOVOLOG FLEXPEN-LOW RESISTANCE SC ×2 (08:14→17:23)
--- NOTE | 2024-01-26 09:01 | PHA.VAN.FU ---
Vancomycin Assessment / Plan
- Assessment
Renal Function: SCR Decreasing
WBC's are: Stable
In the past 24 hrs, patient has been: Afebrile
Concomitant Antimicrobials: cefepime
- Assessment - Therapeutic Drug Monitoring
Random Level: 16.8 - drawn ~15H after previous dose of 1000mg
- Dosing Plan
Dosing by Level: Re-dose today (Vanc 750mg)
- Monitoring Plan
Random Level: 01/26 0600
- Follow Up
Pharmacy will continue to follow.
Vancomycin Follow UP
- -
Patient Age: 78
Patient Sex: Female
Vancomycin Day #: 6
Indication: Skin And Soft Tissue
Requesting Provider: Zuleima Gore / Placido
Pertinent Antimicrobial Allergies:
levofloxacin -foot and ankle swelling
Height / Weight:
Height 5 ft 4 in
Actual Weight 103.646 kg
Pertinent Past Medical History: BMI ~39, DM II, PAD
- Vital Signs / Lab Results
Temp Pulse Resp BP Pulse Ox
98.3 F 57 16 145/54 91
01/26/24 07:15 01/26/24 07:15 01/26/24 07:15 01/26/24 07:15 01/26/24 07:15
Lab Results - Hematology
01/24/24 01/25/24 01/26/24
06:21 05:39 04:36
WBC 14.7 H 16.1 H 15.8 H
Lab Results - Chemistry
01/24/24 01/25/24 01/26/24
06:21 05:39 04:36
BUN 14 19 H 22 H
Creatinine 1.1 H 1.1 H 1.0
Estimated Creat Clear 51 51 56
Albumin 3.0 L
Microbiology Results
01/21/24 11:25 Blood Culture - Preliminary
Blood/Venous No Growth in 4 days- Final report to follow
Therapeutic Drug Monitoring
Random Vancomycin 16.8 ug/ml 01/26/24 04:36
[2024-01-26] MEDS: VANCOCIN 150 IV (09:28)
[2024-01-26] MEDS: LASIX 40 MG PO (09:31)
[2024-01-26] MEDS: IMDUR (EXTENDED RELEASE) 60 MG PO (09:31)
[2024-01-26] MEDS: DAKIN'S SOLUTION 0.125% 1/4 STRENGTH 473 ML TOPICAL (09:31)
[2024-01-26] MEDS: NEURONTIN 100 MG PO ×3 (09:31→20:20)
[2024-01-26] MEDS: APRESOLINE 50 MG PO (09:31)
[2024-01-26] MEDS: ASPIR LOW (ENTERIC COATED) 81 MG PO (09:31)
[2024-01-26] MEDS: VENTOLIN NEBULES 2.5 MG INH (10:24)
--- NOTE | 2024-01-26 10:32 | CM ---
Addendum entered by Staci Odell 01/26/24 10:40:
Patient son indicated that he would like to have referrals sent to [facility] but the information was sent to his mother via phone. Patient son directed CM to call patient caregiver for further options.
Original Note:
Patient seen at bedside. Patient indicated that her son had left information for CM about options for SNF; but was unable to find the information. CM to call patient son. Patient indicated that she understood with surgery tomorrow she would need
SNF level care. PT indicated as well as nursing that patient was a 2 person assist. CM will continue to follow for discharge planning needs.
Plan: SNF will need further assessments s/p planned surgery tomorrow
--- NOTE | 2024-01-26 10:57 | W.PN.HOSP.TC ---
Addendum entered and electronically signed by Netta Segovia MD 01/26/24 11:47:
R forearm/hand swelling with IV site in R forearm. Suspect swelling related to IV site. Informed RN to remove IV site.
Can check R arm US to r/o DVT, order placed
Original Note:
Today's Communication/Plan
-
see A/P
Assessment / Plan
Assessment / Plan
pt is a 78 year old female
Left Lower Ext Cellulitis with nonhealing Left Heel Wound and Critical limb threatening ischemia of left lower extremity--apprec vascular and wound care--s/p diagnostic angiogram 01/23--for bypass surgery - was on vanco/zosyn but appears
allergic to zosyn--consulted ID-- changed Abx to cefepime with vanc
cont gabapentin, oxycodone and IV morphine PRN for pain control
chronic nonhealing wounds (POA)- Stage 3 left heel pressure injury, POA- Stage 2 right heel pressure injury, POA- Stage 2 sacrum pressure injury, POA
h/o Recent Right lower extremity bypass for critical limb threatening ischemia in September 2023/Residual right heel wound
Coronary Artery Disease s/p SINDHU--Continue Isosorbide--Continue Aspirin
Chronic Diastolic Hearty Failure--Continue Lasix--Monitor Is&Os and Daily Weights
Essential Hypertension--Continue atenolol and Hydralazine
Hyperlipidemia--Continue atorvastatin
Diabetes Mellitus, Type II--HgbA1c 5.9%--Monitor sugars and continue coverage insulin
Anxiety/Depression--Continue Lexapro
Class II Obesity--Affects all aspects of care
Tobacco Use Disorder--Encourage smoking cessation
Mild hyponatremia
DVT proph: Lovenox SQ
Code Status: Full Code
Anticipated Discharge: 24 - 48 hours
Subjective/Interval History
-
Date of Service: January 26, 2024
Objective Data
-
Labs:
Laboratory Results
01/26/24
04:36
WBC 15.8 H
Hgb 8.8 L
Hct 28.1 L
Plt Count 445 H
Sodium 135
Potassium 4.2
Chloride 98
Carbon Dioxide 30
BUN 22 H
Creatinine 1.0
Glucose 86
Calcium 8.7
Vital Signs:
Vital Signs
Temp Pulse Resp BP Pulse Ox
36.8 C 77 16 145/54 89
01/26/24 07:15 01/26/24 10:28 01/26/24 10:28 01/26/24 09:31 01/26/24 10:28
I&O
01/25/24 01/26/24 01/27/24
06:59 06:59 06:59
Intake Total 1999 / 1999 1690 / 1690
Output Total 700 / 700 1050 / 1050
Balance 1300 / 1300 640 / 640
Review of Systems
-
All other systems: Reviewed and negative
Physical Exam
-
General: Well Developed, Well Nourished, No Apparent Distress and Comfortable
HEENT: Normocephalic, Atraumatic and Oxygen (1-2L NC)
Respiratory: Clear to Auscultation and Non Labored Respirations; Negative Accessory Resp Muscle Use
Cardiac: Regular Rhythm and S1/S2; Negative Murmur
GI: Soft, Nontender, Nondistended and Normal Bowel Sounds
Musculoskeletal: No Clubbing, No Cyanosis, No Edema and Other (chronic wounds)
Skin: Rash (red blothcy areas on arm, chest--itchy)
Neuro: Awake
Psych: Calm and Intact Judgement/Insight
Data Reviewed
-
Ultrasound: Report Reviewed by me
Labs: Labs Reviewed by me
[2024-01-26 12:08] LABS: Glucose - Point of Care 159 mg/dl (70-99)
[2024-01-26] MEDS: NOVOLOG FLEXPEN-LOW RESISTANCE 1 UNITS SC (12:56)
--- NOTE | 2024-01-26 12:56 | W.PN.ID1 ---
Date of Service
Date of Service: January 26, 2024
Today's Communication
Continue Vanco/cefepime.
Assessment / Plan
# Left heel wound infection. Suspect Pseudomonas infection (green-discoloration)
# PAD - for LLE bypass 01/27/24.
# Leukocytosis
# MRSA colonization.
# Drug rash vs. IV infiltration from Zosyn
- Continue cefepime (d6 abx)
- Continue Vancomycin (d6)
-Follow wbc.
#Additional Past Medical History:
Hypertension
COPD
Rheumatoid arthritis
CAD status post stent
Fatty liver
Wheelchair-bound
Urinary incontinence
Depression/anxiety
PAD s/p R fem to peroneal artery bypass (10/06/23)
Chronic pain syndrome
Skin cancer excision
Overactive bladder
Urinary incontinence
Class III obesity BMI 39
Venous stasis
Alcohol use disorder
Tobacco abuse
Bilateral total knee replacement
Left total hip replacement
L5-S1 hemilaminectomy
Cervical spine surgery
Foot surgeries with hardware
Chief Complaint
-: Other (Wound)
Subjective / Review of Systems
Right arm swollen.
Vital Signs / Physical Exam
Vital Signs
Vital Signs
Temp Pulse Resp BP Pulse Ox
98.3 F 77 16 145/54 89
01/26/24 07:15 01/26/24 10:28 01/26/24 10:28 01/26/24 09:31 01/26/24 10:28
Physical Exam
Constitutional: No Acute Distress
Gastrointestinal: Soft, Non Tender and Non Distended
Extremities: Edema (RUE) and Erythema
Skin: Rash (right forearm erythroderma decreased)
Neurological: AO x 3
Objective Data
Lab Data
Lab Results
01/26/24 04:36
01/26/24 04:36
Estimated Creat Clear 56 ml/min 01/26/24 04:36
Total Bilirubin 0.5 mg/dl (0.2-1.3) 01/25/24 05:39
AST 20 U/L (14-36) 01/25/24 05:39
ALT 15 U/L (0-35) 01/25/24 05:39
Alkaline Phosphatase 117 U/L (38-126) 01/25/24 05:39
Most recent labs reviewed.
Micro Results:
01/21/24 11:25 Blood Culture - Final
Blood/Venous No Growth - Final Report
01/21/24 CXR negative
01/21/24 R Foot XRAY: Soft tissue swelling. No definite radiographic evidence of osteomyelitis.�
[2024-01-26 15:35] VITALS: BP 151/58
[2024-01-26 17:22] LABS: Glucose - Point of Care 95 mg/dl (70-99)
[2024-01-26] MEDS: TENORMIN PO (17:23)
[2024-01-26] MEDS: LIPITOR 80 MG PO (17:42)
[2024-01-26] MEDS: LEXAPRO 20 MG PO (17:42)
[2024-01-26] MEDS: LOVENOX 40 MG SC (17:42)
[2024-01-26 19:55] VITALS: BP 166/59
[2024-01-26] MEDS: BENADRYL 25 MG PO (20:19)
[2024-01-26] MEDS: ROXICODONE 5 MG PO (20:19)
[2024-01-26 20:31] LABS: Glucose - Point of Care 112 mg/dl (70-99)
[2024-01-26 21:55] VITALS: BP 166/59
[2024-01-27] VITALS (23 sets, daily range): BP systolic 5–179; BP diastolic 35–139; BMI 39.2
[2024-01-27] MEDS: ROXICODONE 5 MG PO ×3 (02:13→23:03)
[2024-01-27] MEDS: BENADRYL 25 MG PO (02:14)
[2024-01-27] MEDS: STERILE WATER FOR INJECTION 10 ML IV ×2 (02:14→18:13)
[2024-01-27] MEDS: MAXIPIME 2000 MG IV ×2 (02:14→18:09)
--- NOTE | 2024-01-27 02:51 | PTCARENOTE ---
Patient c/o generalized itching; she is scratching open her skin ; Benadryl PO administered @ 2018 and 213 (see MAR); patient washed, CHG wipes used and linens changed.
[2024-01-27] MEDS: MORPHINE SULFATE 2 MG IV ×3 (05:47→23:03)
[2024-01-27 05:50] LABS: Hematocrit 29.2 % (37.0-47.0); Mean Corp Hgb Conc. 30.8 g/dL (33.0-37.0); Mean Corpuscular Hgb 26.5 pg (27.0-31.0); Mean Corpuscular Volume 86.1 fL (81.0-99.0); Mean Platelet Volume 10.5 fL (7.4-10.4); Platelet Count 444 10^3/uL (130-400); Red Blood Cell Count 3.39 10^6/uL (4.20-5.40); Red Cell Dist. Width 15.7 % (11.5-14.5); White Blood Cell Count 13.4 10^3/uL (4.8-10.8)
[2024-01-27 05:54] LABS: Glucose - Point of Care 97 mg/dl (70-99)
[2024-01-27 06:02] LABS: Vancomycin Random 15.2 ug/ml
[2024-01-27] MEDS: NOVOLOG FLEXPEN-LOW RESISTANCE SC (06:10)
[2024-01-27 06:12] LABS: Blood Urea Nitrogen 20 mg/dl (7-17); Calcium 8.8 mg/dl (8.4-10.2); Carbon Dioxide 32 mmol/L (22-30); Chloride 100 mmol/L (98-107); Estimated Creatinine Clearance 62 ml/min; Glucose 102 mg/dl (70-99); Sodium 138 mmol/L (135-145); eGFR > 60.00
--- NOTE | 2024-01-27 08:12 | PHA.VAN.FU ---
Vancomycin Assessment / Plan
- Assessment
Renal Function: SCR Decreasing
WBC's are: Trending Down
In the past 24 hrs, patient has been: Afebrile
Concomitant Antimicrobials: cefepime
- Assessment - Therapeutic Drug Monitoring
Random Level: 15.2 - drawn ~20H after previous dose of 750mg
- Dosing Plan
Dosing by Level: Re-dose today (scheduled to receive 750mg pre procedure today)
- Monitoring Plan
Random Level: 01/27 0600
- Follow Up
Pharmacy will continue to follow.
Vancomycin Follow UP
- -
Patient Age: 78
Patient Sex: Female
Vancomycin Day #: 7
Indication: Skin And Soft Tissue
Requesting Provider: Zuleima Gore / Placido
Pertinent Antimicrobial Allergies:
levofloxacin -foot and ankle swelling
Height / Weight:
Height 5 ft 4 in
Actual Weight 103.561 kg
Pertinent Past Medical History: BMI ~39, DM II, PAD
- Vital Signs / Lab Results
Temp Pulse Resp BP Pulse Ox
97.8 F 64 18 174/58 94
01/27/24 03:50 01/27/24 03:50 01/27/24 03:50 01/27/24 03:50 01/27/24 03:50
Lab Results - Hematology
01/25/24 01/26/24 01/27/24
05:39 04:36 05:23
WBC 16.1 H 15.8 H 13.4 H
Lab Results - Chemistry
01/25/24 01/26/24 01/27/24
05:39 04:36 05:23
BUN 19 H 22 H 20 H
Creatinine 1.1 H 1.0 0.9
Estimated Creat Clear 51 56 62
Albumin 3.0 L
Microbiology Results
01/26/24 13:15 C. difficile GDH Antigen & Toxins - Final
Feces/Stool C. difficile antigen positive, toxin negative.
Clostridium difficile present, but toxin not detected.
Patient may be a carrier, colonized with nontoxinogenic
strain or the level of toxin in sample is below detection
limits. This information should be used in conjunction with
the patient's clinical history.
- Final
Negative for Norovirus GI and GII.
01/21/24 11:25 Blood Culture - Final
Blood/Venous No Growth - Final Report
Therapeutic Drug Monitoring
Random Vancomycin 15.2 ug/ml 01/27/24 05:23
[2024-01-27] MEDS: NEURONTIN 100 MG PO ×3 (09:06→23:53)
[2024-01-27] MEDS: IMDUR (EXTENDED RELEASE) 60 MG PO (09:07)
[2024-01-27] MEDS: ASPIR LOW (ENTERIC COATED) 81 MG PO (09:07)
[2024-01-27] MEDS: APRESOLINE 50 MG PO (09:07)
[2024-01-27] MEDS: LASIX 40 MG PO (09:08)
[2024-01-27] MEDS: DAKIN'S SOLUTION 0.125% 1/4 STRENGTH 473 ML TOPICAL (09:08)
[2024-01-27] MEDS: BACTROBAN 2% OINTMENT 1 APPLIC NASAL (09:09)
[2024-01-27] MEDS: PERIDEX 0.12% ORAL RINSE 15 ML PO (09:09)
[2024-01-27 09:14] LABS: Glucose - Point of Care 87 mg/dl (70-99)
--- NOTE | 2024-01-27 09:58 | W.PN.HOSP.TC ---
Today's Communication/Plan
-
start oral vanco
for vasular surgery
Assessment / Plan
Assessment / Plan
pt is a 78 year old female
Left Lower Ext Cellulitis with nonhealing Left Heel Wound and Critical limb threatening ischemia of left lower extremity--apprec vascular and wound care--s/p diagnostic angiogram 01/23-- bypass surgery 01/26- was on vanco/zosyn but appears allergic to
zosyn--apprec ID-- changed Abx to cefepime with vanc --cont gabapentin, oxycodone and IV morphine PRN for pain control
C. diff antigen positive--toxin negative--would continue oral vanco prophylactically wile on antibiotics
chronic nonhealing wounds (POA)- Stage 3 left heel pressure injury, POA- Stage 2 right heel pressure injury, POA- Stage 2 sacrum pressure injury, POA
h/o Recent Right lower extremity bypass for critical limb threatening ischemia in September 2023/Residual right heel wound
Coronary Artery Disease s/p SINDHU--Continue Isosorbide--Continue Aspirin
Chronic Diastolic Hearty Failure--Continue Lasix--Monitor Is&Os and Daily Weights
Essential Hypertension--Continue atenolol and Hydralazine
Hyperlipidemia--Continue atorvastatin
Diabetes Mellitus, Type II--HgbA1c 5.9%--Monitor sugars and continue coverage insulin
Anxiety/Depression--Continue Lexapro
Class II Obesity--Affects all aspects of care
Tobacco Use Disorder--Encourage smoking cessation
Mild hyponatremia
DVT proph: Lovenox SQ
Code Status: Full Code
Anticipated Discharge: > 48 hours
Subjective/Interval History
-
Date of Service: January 27, 2024
pt waiting to go to OR
Objective Data
-
Labs:
Laboratory Results
01/27/24
05:23
WBC 13.4 H
Hgb 9.0 L
Hct 29.2 L
Plt Count 444 H
Sodium 138
Potassium 4.0
Chloride 100
Carbon Dioxide 32 H
BUN 20 H
Creatinine 0.9
Glucose 102 H
Calcium 8.8
Vital Signs:
max temp for 24 hours
01/26/24
19:55
Temp 98.6 F
Vital Signs
Temp Pulse Resp BP Pulse Ox
97.8 F 61 18 179/64 96
01/27/24 08:15 01/27/24 09:08 01/27/24 08:15 01/27/24 09:08 01/27/24 08:15
I&O
01/26/24 01/27/24 01/28/24
06:59 06:59 06:59
Intake Total 1690 / 1690 1140 / 1140 480 / 480
Output Total 1050 / 1050
Balance 640 / 640 1140 / 1140 480 / 480
Review of Systems
-
All other systems: Reviewed and negative
Physical Exam
-
General: Well Developed, Well Nourished and No Apparent Distress
HEENT: Normocephalic and Atraumatic
Respiratory: Clear to Auscultation; Negative Wheezes, Rales, Rhonchi or Crackles
Cardiac: Regular Rhythm and S1/S2; Negative Murmur
GI: Soft, Nontender, Nondistended and Normal Bowel Sounds
Musculoskeletal: No Clubbing, No Cyanosis and Other (chronic leg wounds)
Neuro: Awake
Psych: Calm
--- NOTE | 2024-01-27 10:14 | CM ---
Reviewed the chart notes. Patient for lower extremity arterial bypass today. CM continues to be available to patient/family and is monitoring medical plan for needs at discharge.
Plan: Discharge will most likely be SNF/rehab prior to transitioning home.
--- NOTE | 2024-01-27 11:09 | W.PN.ID1 ---
Date of Service
Date of Service: January 27, 2024
Today's Communication
See below.
Assessment / Plan
# Left heel wound infection. Suspect Pseudomonas infection (green-discoloration outpatient)
# PAD - for LLE bypass 01/27/24.
# Leukocytosis improving
# MRSA colonization.
# Drug rash vs. IV infiltration from Zosyn
- Continue cefepime (d7 abx)
- Continue Vancomycin (d7)
-Follow wbc.
# Diarrhea
- C. diff Ag+, toxin negative
- suspect colonization
- On prophylactic oral Vancomycin
#Additional Past Medical History:
Hypertension
COPD
Rheumatoid arthritis
CAD status post stent
Fatty liver
Wheelchair-bound
Urinary incontinence
Depression/anxiety
PAD s/p R fem to peroneal artery bypass (10/06/23)
Chronic pain syndrome
Skin cancer excision
Overactive bladder
Urinary incontinence
Class III obesity BMI 39
Venous stasis
Alcohol use disorder
Tobacco abuse
Bilateral total knee replacement
Left total hip replacement
L5-S1 hemilaminectomy
Cervical spine surgery
Foot surgeries with hardware
Chief Complaint
-: Other (Wound)
Subjective / Review of Systems
+ diarrhea. No abd pain.
Vital Signs / Physical Exam
Vital Signs
Vital Signs
Temp Pulse Resp BP Pulse Ox
97.8 F 61 18 179/64 96
01/27/24 08:15 01/27/24 09:08 01/27/24 08:15 01/27/24 09:08 01/27/24 08:15
Physical Exam
Constitutional: No Acute Distress and Comfortable
Gastrointestinal: Soft, Non Tender and Non Distended
Extremities: Edema (RUE 2+)
Skin: Rash (R forearm rash decreasing)
Objective Data
Lab Data
Lab Results
01/27/24 05:23
01/27/24 05:23
Estimated Creat Clear 62 ml/min 01/27/24 05:23
Total Bilirubin 0.5 mg/dl (0.2-1.3) 01/25/24 05:39
AST 20 U/L (14-36) 01/25/24 05:39
ALT 15 U/L (0-35) 01/25/24 05:39
Alkaline Phosphatase 117 U/L (38-126) 01/25/24 05:39
Most recent labs reviewed.
Micro Results:
01/26/24 13:15 Salmonella/Shigella Culture - Preliminary
Feces/Stool Culture in Progress
Campylobacter Culture - Preliminary
Culture in Progress
Shiga Toxin Test - Final
No E. coli Shiga Toxin 1 or 2 detected.
01/26/24 13:15 C. difficile GDH Antigen & Toxins - Final
Feces/Stool C. difficile antigen positive, toxin negative.
Clostridium difficile present, but toxin not detected.
Patient may be a carrier, colonized with nontoxinogenic
strain or the level of toxin in sample is below detection
limits. This information should be used in conjunction with
the patient's clinical history.
- Final
Negative for Norovirus GI and GII.
01/21/24 11:25 Blood Culture - Final
Blood/Venous No Growth - Final Report
01/21/24 CXR negative
01/21/24 R Foot XRAY: Soft tissue swelling. No definite radiographic evidence of osteomyelitis.�
Care Review
Plan reviewed with: Physician (Dr. Logan)
[2024-01-27] MEDS: FIRVANQ 125 MG PO ×2 (11:34→20:14)
--- NOTE | 2024-01-27 11:54 | W.PN.UPDATE ---
Update Note
Progress Note Update
Seen and examined this AM. Discussed plan for LLE bypass due to CLI. Discussed risks including but not limited to bleeding, infection, wound healing complications (she has compromised skin/SQ tissue), need for reoperations (planned and otherwise),
limb loss despite all efforts, inability to complete bypass procedure. She understands all and wishes to proceed. Discussed also with patient's caregiver Sagar Eason ([phone]) via phone per patient request.
[2024-01-27 13:52] LABS: Glucose - Point of Care 85 mg/dl (70-99)
[2024-01-27 16:22] LABS: ACT-LR - POC 124 Seconds (116-155)
[2024-01-27 16:30] LABS: Glucose - Point of Care 134 mg/dl (70-99)
--- NOTE | 2024-01-27 17:06 | W.SUR.POST ---
Surgical Immediate Post Op
Note
Pre Op Diagnosis: critical limb ischemia
Post Op Diagnosis: same
Procedure Performed: LLE femoral to peroneal artery bypass with NVSVG
Primary Surgeon: He
Assist: Nico RESENDIZ, Ty RESENDIZ
Anesthesia: general
Estimated Blood Loss: 200cc
Fluids: see anesthesia flow sheet
Drains/Shunts: VINEET to saphenectomy site
Specimens/Cultures: none
Doppler/Duplex/Angio (Y/N): Y
Complications: none
Operative Findings: Palp graft pulse
[2024-01-27] MEDS: SUBLIMAZE 25 MCG IV ×4 (17:31→18:14)
[2024-01-27 17:43] LABS: Glucose - Point of Care 147 mg/dl (70-99)
[2024-01-27 17:50] LABS: Hemoglobin 8.6 g/dL (12.0-16.0); Mean Corp Hgb Conc. 31.9 g/dL (33.0-37.0); Mean Corpuscular Volume 84.6 fL (81.0-99.0); Mean Platelet Volume 10.2 fL (7.4-10.4); Platelet Count 454 10^3/uL (130-400); Red Blood Cell Count 3.19 10^6/uL (4.20-5.40); Red Cell Dist. Width 15.7 % (11.5-14.5)
[2024-01-27 17:59] LABS: INR 1.26; PT 15.9 Sec (11.4-14.6)
[2024-01-27 18:00] LABS: APTT 34.9 Sec (23.4-35.0)
[2024-01-27 18:05] LABS: Blood Urea Nitrogen 15 mg/dl (7-17); Calcium 8.1 mg/dl (8.4-10.2); Carbon Dioxide 30 mmol/L (22-30); Chloride 101 mmol/L (98-107); Estimated Creatinine Clearance 70 ml/min; Glucose 143 mg/dl (70-99); Potassium 3.4 mmol/L (3.5-5.1); Sodium 137 mmol/L (135-145); eGFR > 60.00
[2024-01-27] MEDS: NSS 1000 IV (18:11)
[2024-01-27] MEDS: LEXAPRO 20 MG PO (19:08)
[2024-01-27] MEDS: LIPITOR 80 MG PO (19:08)
[2024-01-27] MEDS: LOVENOX 40 MG SC (19:08)
--- NOTE | 2024-01-27 19:09 | SUR.PHASEI ---
patient received in pacu with wide variance of BP from Ally to cuff. CHICKEN BUYER reports same in OR. correlated once asleep and relaxed, Dr Chilel at bedside, ordering levo push and drip - patient's bp with small dose of levophed up to 220 -/160. hold
on levophed. Nss opened wide, packed cells ordered and sent for. labs drawn and sent. BP starting to correlate with 10 - 20 points. both charted. packed cells up and infusing. small amount of drainage on dressing at groin. medicated x4 with
small doses of fentanyl for pain; in attempt to keep BP stable. mouth care frequently. palpable popliteal pulse by knee through dressing. doppler pulses on left foot DP and PT. kept on high flow O2 with simple mask. patient is demanding,
multiple requests. takes mask off frequently - wants to drink. reviewed orders frequently with patient. report to [facility] and transferred care. packed cells finishing on transfer.
[2024-01-27 19:36] LABS: Magnesium 2.3 mg/dl (1.6-2.3)
--- NOTE | 2024-01-27 19:41 | PTCARENOTE ---
received pt at 1850 , pt awake and alert , NSR on monitor HR 66, BP cuff 136/53 and Tropic 166/41, L leg with char wrap , L groin VINEET drain , L leg graft site with palpable pulse , L DP and PT with Doppler signal , foot pink and warm , Jean Baptiste cath with
clear yellow urine , pt completed 1 unit of PRBC , pt complains of severe post op pain and lower back pain , she was given IV morphine as ordered and Roxicodone for pain control , pt was repositioned in bed , will continue to monitor pain levels
[2024-01-27] MEDS: MAXIPIME IV (20:14)
[2024-01-27] MEDS: DILAUDID 0.5 MG IV (20:14)
[2024-01-27] MEDS: STERILE WATER FOR INJECTION IV (20:36)
--- NOTE | 2024-01-27 20:44 | PTCARENOTE ---
Received patient in bed, AAOx3, following commands, complaining of 10/10 pain throughout left leg and lower back. Given dilaudid, see MAR for details. Normal sinus, 60s-70s, murmur present. Palpable radial pulses bilaterally. Doppler pedal and
posterior tibial pulses on left foot, palpable pulse at graft site on left leg. Palpable right pedal and posterior tibial pulses. 20-30 point difference between cuff pressure and arterial line, cuff pressure more accurate on right arm with right
radial arterial line. Huber Javier REVERSE UNIT OPERATOR FISHERMAN aware, instructed to go by cuff pressures. On 6 liters nasal cannula midflow, saturating 98%. Lung sounds clear. Abdomen soft, round, obese, hypoactive bowel sounds. Jean Baptiste in place draining yellow urine.
Aquacell and char wrap on left leg/foot. Patient itching site near groin, sanguinous drainage, reinforced with gauze and instructed to stop itching, REVERSE UNIT OPERATOR FISHERMAN aware. Foam on sacrum, CDI. Foam on heel, CDI. VINEET drain with minimal sanguinous fluid on left
thigh.
--- NOTE | 2024-01-27 22:17 | PTCARENOTE ---
Aquacell on left thigh very weepy and oozing, REAL ESTATE LOAN PROCESSOR to bedside. Collection of blood under aquacell. Held pressure and reinforced with ABD pad, vascular surgery notified via tiger text [id number]. Vascular instructed to removed aquacell and replace with dry
dressing, done.
[2024-01-27] MEDS: TENORMIN 25 MG PO (23:02)
--- NOTE | 2024-01-27 23:55 | PTCARENOTE ---
PRN pain meds given for 8/10 pain, see MAR for details. Big blood clot under aquacell, vascular aware. ABD and kerlix applied and aquacell removed as per vascular. Otherwise patient assessment unchanged from previous.
[2024-01-28] VITALS (22 sets, daily range): BP systolic 92–134; BP diastolic 28–76; BMI 39.0
[2024-01-28 00:29] LABS: Glucose - Point of Care 225 mg/dl (70-99)
[2024-01-28] MEDS: FIRVANQ 125 MG PO ×3 (01:09→17:09)
[2024-01-28] MEDS: NOVOLOG FLEXPEN 3 UNITS SC (01:10)
[2024-01-28] MEDS: DILAUDID 0.5 MG IV (02:58)
[2024-01-28 03:56] LABS: Hematocrit 23.2 % (37.0-47.0); Hemoglobin 7.4 g/dL (12.0-16.0); Mean Corp Hgb Conc. 31.9 g/dL (33.0-37.0); Mean Corpuscular Hgb 27.2 pg (27.0-31.0); Mean Corpuscular Volume 85.3 fL (81.0-99.0); Mean Platelet Volume 10.6 fL (7.4-10.4); Platelet Count 388 10^3/uL (130-400); Red Blood Cell Count 2.72 10^6/uL (4.20-5.40); Red Cell Dist. Width 15.3 % (11.5-14.5); White Blood Cell Count 17.1 10^3/uL (4.8-10.8)
--- NOTE | 2024-01-28 04:10 | PTCARENOTE ---
Dressing soaked through with blood, AUCTIONEER AUTOMOBILE aware, new ABD and tape applied. BP labile, 120s-130s/30s-60s, MAPs in the 50s-70s. AUCTIONEER AUTOMOBILE aware, no further intervention at this time. Labs sent, repositioned, additional dilaudid given for 8/10 pain, see MAR for
details. Otherwise patient assessment unchanged from previous.
[2024-01-28 04:19] LABS: Lactic Acid 2.4 mmol/L (0.7-2.0)
[2024-01-28 04:20] LABS: Blood Urea Nitrogen 18 mg/dl (7-17); Calcium 7.6 mg/dl (8.4-10.2); Carbon Dioxide 28 mmol/L (22-30); Chloride 99 mmol/L (98-107); Estimated Creatinine Clearance 70 ml/min; Glucose 160 mg/dl (70-99); Sodium 135 mmol/L (135-145); eGFR > 60.00
--- NOTE | 2024-01-28 04:25 | W.PN.UPDATE ---
Update Note
Progress Note Update
Overnight: Bleeding from incision site; incision site redress *2 and char bandage applied; one unit of blood given for hgb 7.4, IV fluids held during blood transfusion, NPO, vascular updated and recommendation noted.��
[2024-01-28 04:28] LABS: Vancomycin Random 12.6 ug/ml
--- NOTE | 2024-01-28 04:35 | PTCARENOTE ---
Hgb 7.4, vascular aware, ordered 1 unit of blood and NPO. Grant bandage applied to dressing as per vascular.
[2024-01-28] MEDS: MAXIPIME 2000 MG IV ×2 (06:24→17:01)
[2024-01-28] MEDS: STERILE WATER FOR INJECTION 10 ML IV ×2 (06:24→17:01)
--- NOTE | 2024-01-28 08:18 | W.PN.VS ---
Addendum entered and electronically signed by Flavio Cutler MD 01/28/24 11:37:
Seen and examined with GAYATRI Crawford. Agree with findings as noted below. Oozing from left groin staple line. Dressings removed and examined. No hematoma in the thigh. Nothing to suggest significant ongoing bleeding or anything deep. At the staple
line between 2 of the ana there is the smallest trickle of ooze. Appears venous in nature. Thigh is soft. Calf is soft. Easily 2+ palpable graft pulse. Foot is warm with excellent dopplerable PT signal. Plan/as discussed and noted below.
Reinforced dressing and Grant bandage applied to thigh.
Original Note:
Today's Communication / Plan
-
Plan reviewed with attending Dr. Flavio Cutler
Assessment/Plan
-
Assessment: 78-year-old female POD #1 left femoral to peroneal artery bypass with ipsilateral nonreversed vein
Plan:
Currently receiving 1 unit packed red blood cell for hemoglobin of 7.4, nursing staff overnight reporting dressing saturation at left upper thigh incision, dressing changed at 0400 and currently dry, can advance diet
Repeat H&H post transfusion
Discontinue arterial line
Discontinue IV fluids
Discontinue Jean Baptiste catheter
May possibly progress to out of bed to chair later this afternoon if upper thigh surgical incision remains dry
Subjective Data
-
Date of Service: January 28, 2024
Patient seen and examined at bedside, reports adequate postoperative pain management. Denies nausea, fever, chills, and vomiting. Reports adequate appetite. Denies lightheadedness and dizziness.
Objective Data
-
Vital Signs
Temp Pulse Resp BP Pulse Ox
97.8 F 46 12 133/46 96
01/28/24 05:50 01/28/24 07:45 01/28/24 07:45 01/28/24 05:50 01/28/24 07:45
Intake and Output
01/27/24 01/28/24 01/29/24
06:59 06:59 06:59
Intake Total 1140 / 1140 2835 / 2835
Output Total 2405 / 2405
Balance 1140 / 1140 430 / 430
Intake:
Oral fluids 1140 / 1140 1200 / 1200
IV fluids (Total) 1385 / 1385
NSS 300 / 300
Nss 1,000 ml @ 80 mls/hr IV . 960 / 960
[id number] [facility] Rx#:[id number]
blood 125 / 125
Blood Products 250 / 250
Packed red blood cells 250 / 250
Blood Product Amount Infused ( 0 0
mL)
Packed Rbc Leukoreduced Unit 0 0
[id number]
Output:
Drain Output (Total)
Left Leg Hugo-Duncan
Urine, Jean Baptiste 2390 / 2390
Other:
How many times incontinent 4 5
SATURATED amount urine
Lab Results
01/28/24 03:43
01/28/24 03:43
Calcium 7.6 mg/dl (8.4-10.2) L 01/28/24 03:43
Magnesium 2.0 mg/dl (1.6-2.3) 01/28/24 03:43
Total Bilirubin 0.5 mg/dl (0.2-1.3) 01/25/24 05:39
AST 20 U/L (14-36) 01/25/24 05:39
ALT 15 U/L (0-35) 01/25/24 05:39
Alkaline Phosphatase 117 U/L (38-126) 01/25/24 05:39
Total Protein 6.4 g/dl (6.3-8.2) 01/25/24 05:39
Albumin 3.0 g/dl (3.5-5.0) L 01/25/24 05:39
Physical Exam
-
Awake, alert, NAD
No tachycardia
Nonlabored respirations
Left lower extremity with dry and intact Grant wrap, no evidence hematoma, leg soft, VINEET drain with scant serosanguineous output
Left foot warm with Doppler DP signal
--- NOTE | 2024-01-28 08:25 | W.PN.HOSP.TC ---
Addendum entered and electronically signed by Netta Segovia MD 01/28/24 08:36:
# Acute post op blood loss anemia
Hgb 7.4 from 8.6, 1 unit PRBC ordered
Monitor Hgb
Original Note:
Today's Communication/Plan
-
see A/P
Bold for today
Assessment / Plan
Assessment / Plan
pt is a 78 year old female
Left Lower Ext Cellulitis with nonhealing Left Heel Wound and Critical limb threatening ischemia of left lower extremity--apprec vascular and wound care--s/p diagnostic angiogram 01/23-- s/p bypass surgery 01/26- was on vanco/zosyn but appears
allergic to zosyn--apprec ID-- changed Abx to cefepime with vanc --cont gabapentin, oxycodone and IV morphine PRN for pain control
ID following
Diarrhea with C. diff antigen positive toxin negative--suspect colonization, continue oral vanco prophylactically while on antibiotics
Bradycardia, Holding LEAD TEACHER atenolol, monitor BP
Acute hypoxic resp failure with possible sleep apnea. Pt was noted to desat overnight, placed on 6L NC, wean O2 as tolerated
chronic nonhealing wounds (POA)- Stage 3 left heel pressure injury, POA- Stage 2 right heel pressure injury, POA- Stage 2 sacrum pressure injury, POA
h/o Recent Right lower extremity bypass for critical limb threatening ischemia in September 2023/Residual right heel wound
Coronary Artery Disease s/p SINDHU--Continue Isosorbide--Continue Aspirin
Chronic Diastolic Hearty Failure--Continue Lasix--Monitor Is&Os and Daily Weights
Essential Hypertension--Continue Hydralazine, holding LEAD TEACHER Atenolol
Hyperlipidemia--Continue atorvastatin
Diabetes Mellitus, Type II--HgbA1c 5.9%--Monitor sugars and continue coverage insulin
Anxiety/Depression--Continue Lexapro
Class II Obesity--Affects all aspects of care
Tobacco Use Disorder--Encourage smoking cessation
Mild hyponatremia
DVT proph: Lovenox SQ
Code Status: Full Code
DW RN
Anticipated Discharge: 24 - 48 hours
Subjective/Interval History
-
Date of Service: January 28, 2024
Objective Data
-
Labs:
Laboratory Results
01/28/24
03:43
WBC 17.1 H
Hgb 7.4 L
Hct 23.2 L
Plt Count 388
Sodium 135
Potassium 4.0
Chloride 99
Carbon Dioxide 28
BUN 18 H
Creatinine 0.8
Glucose 160 H
Calcium 7.6 L
Vital Signs:
Vital Signs
Temp Pulse Resp BP Pulse Ox
36.6 C 46 12 133/46 96
01/28/24 05:50 01/28/24 07:45 01/28/24 07:45 01/28/24 05:50 01/28/24 07:45
I&O
01/27/24 01/28/24 01/29/24
06:59 06:59 06:59
Intake Total 1140 / 1140 2835 / 2835
Output Total 2405 / 2405
Balance 1140 / 1140 430 / 430
Review of Systems
-
All other systems: Reviewed and negative
Physical Exam
-
General: Well Developed and Well Nourished
HEENT: Normocephalic, Atraumatic and Oxygen (6L NC)
Respiratory: Clear to Auscultation and Non Labored Respirations; Negative Accessory Resp Muscle Use
Cardiac: Regular Rhythm, S1/S2 and Bradycardic; Negative Murmur
GI: Soft, Nontender, Nondistended and Normal Bowel Sounds
Musculoskeletal: No Clubbing, No Cyanosis and Other (chronic leg wounds)
Neuro: Awake
Psych: Calm and Intact Judgement/Insight
Data Reviewed
-
Ultrasound: Report Reviewed by me
Labs: Labs Reviewed by me
[2024-01-28] MEDS: ROXICODONE 5 MG PO (08:28)
[2024-01-28] MEDS: NOVOLOG FLEXPEN-MODERATE RESISTANCE SC ×2 (08:28→16:54)
[2024-01-28] MEDS: LASIX 40 MG PO (08:28)
[2024-01-28] MEDS: NEURONTIN 100 MG PO ×3 (08:29→22:10)
[2024-01-28] MEDS: APRESOLINE 50 MG PO (08:29)
[2024-01-28] MEDS: ASPIR LOW (ENTERIC COATED) 81 MG PO (08:29)
[2024-01-28 08:36] LABS: Glucose - Point of Care 147 mg/dl (70-99)
[2024-01-28] MEDS: IMDUR (EXTENDED RELEASE) 60 MG PO (08:36)
[2024-01-28] MEDS: DAKIN'S SOLUTION 0.125% 1/4 STRENGTH 473 ML TOPICAL (08:43)
--- NOTE | 2024-01-28 08:47 | PHA.VAN.FU ---
Vancomycin Assessment / Plan
- Assessment
Renal Function: Stable
WBC's are: Trending Down
In the past 24 hrs, patient has been: Afebrile
Concomitant Antimicrobials: cefepime
- Assessment - Therapeutic Drug Monitoring
Random Level: 12.6 - drawn ~14.5H after previous dose of 750mg
Vanc 750mg administered pre-procedure yesterday at 13:13
Patient's vancomycin clearance appears to be starting to improve; however, CrCl still does not adequately appear to be predicting vancomycin clearance
- Dosing Plan
Dosing by Level: Re-dose today (Vanc 750mg)
- Monitoring Plan
Random Level: 01/28 0600
- Follow Up
Pharmacy will continue to follow.
Vancomycin Follow UP
- -
Patient Age: 78
Patient Sex: Female
Vancomycin Day #: 8
Indication: Skin And Soft Tissue
Requesting Provider: Zuleima Gore / Placido
Pertinent Antimicrobial Allergies:
levofloxacin -foot and ankle swelling
Height / Weight:
Height 5 ft 4 in
Actual Weight 103.1 kg
Pertinent Past Medical History: BMI ~39, DM II, PAD
- Vital Signs / Lab Results
Temp Pulse Resp BP Pulse Ox
97.4 F 52 12 145/42 96
01/28/24 08:00 01/28/24 08:29 01/28/24 07:45 01/28/24 08:29 01/28/24 07:45
Lab Results - Hematology
01/26/24 01/27/24 01/27/24
04:36 05:23 17:40
WBC 15.8 H 13.4 H 22.0 H
01/28/24
03:43
WBC 17.1 H
Lab Results - Chemistry
01/26/24 01/27/24 01/27/24
04:36 05:23 17:40
BUN 22 H 20 H 15
Creatinine 1.0 0.9 0.8
Estimated Creat Clear 56 62 70
01/28/24
03:43
BUN 18 H
Creatinine 0.8
Estimated Creat Clear 70
01/28/24
03:43
Lactic Acid 2.4 H
Microbiology Results
01/26/24 13:15 Salmonella/Shigella Culture - Preliminary
Feces/Stool Culture in Progress
Campylobacter Culture - Preliminary
Culture in Progress
Shiga Toxin Test - Final
No E. coli Shiga Toxin 1 or 2 detected.
01/26/24 13:15 C. difficile GDH Antigen & Toxins - Final
Feces/Stool C. difficile antigen positive, toxin negative.
Clostridium difficile present, but toxin not detected.
Patient may be a carrier, colonized with nontoxinogenic
strain or the level of toxin in sample is below detection
limits. This information should be used in conjunction with
the patient's clinical history.
- Final
Negative for Norovirus GI and GII.
01/21/24 11:25 Blood Culture - Final
Blood/Venous No Growth - Final Report
Therapeutic Drug Monitoring
Random Vancomycin 12.6 ug/ml 01/28/24 03:43
[2024-01-28] MEDS: MORPHINE SULFATE 2 MG IV ×2 (08:56→19:45)
--- NOTE | 2024-01-28 09:00 | PTCARENOTE ---
pt awake and alert, confused at times, NSR on monitor , BP 124/38 , 6L Nc sats are 97% , complaining of lower back pain (chronic ) and L Leg pain , medicated as ordered , pt now on diet and tolerated well, PRBC complete, pt to have another HH at
1300 , pt pulses on L leg palpable by Doppler , dressing was redressed by Dr Cutler , 4x4 and char wrap applied to L upper leg for compression , pt to remain in bed today
[2024-01-28] MEDS: VANCOCIN 150 IV (09:43)
--- NOTE | 2024-01-28 09:44 | W.PN.ID1 ---
Date of Service
Date of Service: January 28, 2024
Today's Communication
Continue abx's (day 8 of 10)
Assessment / Plan
# Left heel wound infection resolving.
# Chronic right medial heel wound - improving.
# PAD - s/p LLE bypass 01/27/24. hx RLE bypass (09/2023)
# Leukocytosis
# MRSA colonization.
# Drug rash vs. IV infiltration from Zosyn
- Continue cefepime (d8 of 10 abx)
- Continue Vancomycin (d8 10)
-Follow wbc
# Diarrhea - resolved
- C. diff Ag+, toxin negative
- suspect colonization
- On prophylactic oral Vancomycin- decreased dose to bid.
#Additional Past Medical History:
Hypertension
COPD
Rheumatoid arthritis
CAD status post stent
Fatty liver
Wheelchair-bound
Urinary incontinence
Depression/anxiety
PAD s/p R fem to peroneal artery bypass (10/06/23)
Chronic pain syndrome
Skin cancer excision
Overactive bladder
Urinary incontinence
Class III obesity BMI 39
Venous stasis
Alcohol use disorder
Tobacco abuse
Bilateral total knee replacement
Left total hip replacement
L5-S1 hemilaminectomy
Cervical spine surgery
Foot surgeries with hardware
Chief Complaint
-: Other (Wound)
Subjective / Review of Systems
c/o left NGOC-Wrap too tight. No diarrhea.
Vital Signs / Physical Exam
Vital Signs
Vital Signs
Temp Pulse Resp BP Pulse Ox
97.6 F 49 18 134/34 96
01/28/24 09:01 01/28/24 09:01 01/28/24 09:01 01/28/24 09:01 01/28/24 07:45
Physical Exam
Constitutional: No Acute Distress and Comfortable
Cardiovascular: Regular Rate and S1/S2
Pulmonary: Clear
Gastrointestinal: Soft, Non Tender and Non Distended
Wound: Other (Right medial heel wound with granulating tissue; Left posterior heel wound dry, no deep probe, without surrounding erythema)
Objective Data
Lab Data
Lab Results
01/28/24 03:43
PT 15.9 Sec (11.4-14.6) H 01/27/24 17:40
INR 1.26 01/27/24 17:40
APTT 34.9 Sec (23.4-35.0) 01/27/24 17:40
Estimated Creat Clear 70 ml/min 01/28/24 03:43
Lactic Acid 2.4 mmol/L (0.7-2.0) H 01/28/24 03:43
Total Bilirubin 0.5 mg/dl (0.2-1.3) 01/25/24 05:39
AST 20 U/L (14-36) 01/25/24 05:39
ALT 15 U/L (0-35) 01/25/24 05:39
Alkaline Phosphatase 117 U/L (38-126) 01/25/24 05:39
Most recent labs reviewed.
Micro Results:
01/26/24 13:15 Salmonella/Shigella Culture - Preliminary
Feces/Stool Culture in Progress
Campylobacter Culture - Preliminary
Culture in Progress
Shiga Toxin Test - Final
No E. coli Shiga Toxin 1 or 2 detected.
01/26/24 13:15 C. difficile GDH Antigen & Toxins - Final
Feces/Stool C. difficile antigen positive, toxin negative.
Clostridium difficile present, but toxin not detected.
Patient may be a carrier, colonized with nontoxinogenic
strain or the level of toxin in sample is below detection
limits. This information should be used in conjunction with
the patient's clinical history.
- Final
Negative for Norovirus GI and GII.
01/21/24 11:25 Blood Culture - Final
Blood/Venous No Growth - Final Report
01/21/24 CXR negative
01/21/24 R Foot XRAY: Soft tissue swelling. No definite radiographic evidence of osteomyelitis.�
--- NOTE | 2024-01-28 10:55 | CM ---
Addendum entered by Staci Odell 01/28/24 11:12:
[facility] not listed in all scripts, message left for admissions asking for call back with fax for referral.
Original Note:
Patient seen with Lelo hilario. Patient stated that she does continue to recognize that she will need SNF and referrals [facility] and [facility] were requested. CM sent referrals to SNF's as requested. CM will
continue to follow for discharge planning needs.
Plan; SNF: pending acceptance and medical treatment plan.
--- NOTE | 2024-01-28 11:57 | CON.INTV ---
Consultation
Consultation Request
Date/Time Consultation Requested: 01/28/2024
Date/Time Consultation Performed: 01/28/2024
Requesting Provider: Dr. Segovia
Performing Provider: Dr. Mykel Birmingham
Reason for Consultation: Postoperative ICU care
Medical History
-
History of Present Illness:
78-year-old woman with complicated past medical history who has history of significant peripheral arterial disease. She has a left heel nonhealing wound, suspected to have a Pseudomonas infection.
Patient has been on antibiotics.
Due to critical limb ischemia, she was scheduled by vascular Surgery for revascularization. Underwent left lower extremity femoral to peroneal artery bypass on 01/27/2024.
Overnight patient had significant bleeding on the incision site. He was treated with pressure, transfusion of 1 unit of packed red blood cells was also given for hemoglobin 7.4.
Patient continues to complain of multiple areas of pain including her back and some on her surgical site.
Denies any shortness of breath.
Denies nausea or vomiting.
Past Medical History
Past Medical History: Other (See assessment and plan section)
Social History
Tobacco: Smoker (Half a pack per day)
Alcohol: Daily (3 glasses of wine)
Drug: None
Family History
Family History: Reviewed & Not Pertinent
Allergies / Home Medications
Allergies
Allergy/AdvReac Type Severity Reaction Status Date / Time
amlodipine Allergy Rash Verified 01/21/24 11:01
cat dander Allergy SNEEZING Verified 01/21/24 11:01
house dust Allergy SNEEZING Verified 01/21/24 11:01
levofloxacin [From Levaquin] Allergy foot and Verified 01/21/24 11:01
ankle
swelling
mold Allergy SNEEZING Verified 01/21/24 11:01
piperacillin [From Zosyn] Allergy Rash, Verified 01/27/24 17:37
itching
pollen extracts Allergy HAYFEVER-SN Verified 01/21/24 11:01
EEZING
tazobactam [From Zosyn] Allergy Rash, Verified 01/27/24 17:37
itching
venom-honey bee Allergy BEE Verified 01/21/24 11:01
[id number]
NOT CARRY
EPI PEN
Home Medications
Medication Instructions Recorded Confirmed Last Taken Type
atenolol 25 mg tablet 50 mg PO HS Blood pressure 04/30/20 01/21/24 01/20/24 History
isosorbide mononitrate 60 mg 60 mg PO DAILY Heart 04/30/20 01/21/24 01/21/24 History
tablet,extended release 24 hr disease/condition
aspirin 81 mg tablet,delayed 81 mg PO DAILY Blood Clot 12/15/21 01/21/24 01/21/24 History
release Prevention/Tx
escitalopram oxalate 20 mg tablet 20 mg PO QPM Depression 12/15/21 01/21/24 01/20/24 History
Garlique 1 tab PO DAILY Supplement 09/27/23 01/21/24 09/26/23 10:30 History
Probiotic 1 gummy PO DAILY Supplement 09/27/23 01/21/24 01/20/24 History
albuterol sulfate 90 mcg/actuation 1 puff inhalation R Q4HPRN PRN 09/27/23 01/21/24 1 Week Ago History
aerosol inhaler shortness of breath ~01/14/24
coffee extract 100 mg-phosphatidyl 1 cap PO DAILY Supplement 09/27/23 01/21/24 01/21/24 History
serine 100 mg capsule (Neuriva
Original)
Beet Root 1 gummy PO .MID-DAY Supplement 01/21/24 01/21/24 01/20/24 History
apple cider vinegar 1 gummy PO DAILY@1200 Supplement 01/21/24 01/28/24 01/20/24 History
atorvastatin 80 mg tablet 80 mg PO QPM High Cholesterol 01/21/24 01/21/24 01/20/24 History
cholecalciferol (vitamin D3) 25 25 mcg PO DAILY Supplement 01/21/24 01/21/24 Unknown History
mcg (1,000 unit) tablet
furosemide 20 mg tablet 40 mg PO DAILY Fluid 01/21/24 01/21/24 01/21/24 History
Retention/Swelling 20 mg
gabapentin 100 mg capsule 100 mg PO HS Neuropathy 01/21/24 01/21/24 01/20/24 History
hydralazine 50 mg tablet 50 mg PO DAILY HTN 01/21/24 01/21/24 Unknown History
hydrocodone 10 mg-acetaminophen 1 tab PO [id number] PRN severe pain 01/21/24 01/21/24 2 Days Ago History
325 mg tablet ~01/19/24
ibuprofen 200 mg capsule (Advil 200 mg PO .AFTERNOON Pain 01/21/24 01/21/24 01/20/24 History
Liqui-Gel)
multivitamin with minerals-folic 1 tab PO DAILY Supplement 01/21/24 01/21/24 01/20/24 History
acid 200 mcg chewable tablet
(Multivitamin Gummies)
sodium hypochlorite 0.25 % 1 applic topical .SEE BELOW 01/21/24 01/21/24 2 Weeks Ago History
solution (Dakin's Solution) apply to right heel ~01/07/24
Review of Systems
-
History Source: Patient
All other systems: Negative unless noted
Vitals / Labs / Diagnostic Testing
Vital Signs
Temp Pulse Resp BP Pulse Ox
97.6 F 49 18 134/34 96
01/28/24 09:01 01/28/24 09:01 01/28/24 09:01 01/28/24 09:01 01/28/24 07:45
Lab Data
01/28/24 03:43
Laboratory Results
01/27/24
17:40
PT 15.9 H
INR 1.26
APTT 34.9
Microbiology
01/26/24 13:15 Feces/Stool Salmonella/Shigella Culture - Final
No Salmonella, Shigella, Aeromonas or Plesiomonas species
isolated.
01/26/24 13:15 Feces/Stool Campylobacter Culture - Final
No Campylobacter species isolated.
01/26/24 13:15 Feces/Stool Shiga Toxin Test - Final
No E. coli Shiga Toxin 1 or 2 detected.
01/26/24 13:15 Feces/Stool C. difficile GDH Antigen & Toxins - Final
C. difficile antigen positive, toxin negative.
Clostridium difficile present, but toxin not detected.
Patient may be a carrier, colonized with nontoxinogenic
strain or the level of toxin in sample is below detection
limits. This information should be used in conjunction with
the patient's clinical history.
01/26/24 13:15 Feces/Stool - Final
Negative for Norovirus GI and GII.
01/21/24 11:25 Blood/Venous Blood Culture - Final
No Growth - Final Report
Diagnostic Testing:
Physical Exam
-
HEENT: Normocephalic
Cardiovascular: S1/S2
Respiratory: Clear and Non-Labored Respirations
GI: Soft and Non Distended
Neurology: Awake and Alert
Skin: Warm, Other (Thigh is not enlarged. There is peripheral pulses present.) and Other (Surgical incision noted. Currently dressed. No active bleeding noted.)
General: Respiratory Distress (n)
Assessment
-
Status post left lower extremity bypass 01/27/2024
Prior history of hx RLE bypass (09/2023)
Left lower extremity cellulitis-nonhealing ulcer-possible Pseudomonas infection.
Acute on chronic blood loss anemia
MRSA colonization.
Conditions present prior admission:
Hypertension
COPD
Rheumatoid arthritis
CAD status post stent
Fatty liver
Wheelchair-bound
Urinary incontinence
Depression/anxiety
PAD s/p R fem to peroneal artery bypass (10/06/23)
Chronic pain syndrome
Skin cancer excision
Overactive bladder
Urinary incontinence
Class III obesity BMI 39
Venous stasis
Alcohol use disorder-Daily drinker
Tobacco abuse-ongoing
Bilateral total knee replacement
Left total hip replacement
L5-S1 hemilaminectomy
Cervical spine surgery
Foot surgeries with hardware
Assessment and plan:
Postoperative surgical intensive care unit monitoring
Supplemental oxygen as needed
Incentive spirometry
Aspiration precautions
Nebulizers if needed-currently not bronchospastic
Neuro and vascular checks per protocol
Vascular surgery following-correspondence and operative notes reviewed
Continue with local care
Continue to monitor for bleeding
Monitor blood pressure
Status post 1 unit packed red blood cells.
Continue to follow H&H
With history of heart failure, monitor volume status closely.
Nonhealing left lower extremity wound-continue antibiotics per infectious disease. Cefepime/vancomycin.
Pain control with narcotics: Will try to minimize.
Monitor respiratory status closely
Follow blood sugars
Insulin supplementation as needed
Monitor hypercalcemia
C. difficile antigen positive cough toxin negative. On prophylactic vancomycin.
Tobacco abuse: Encourage to quit smoking. Patient not interested
Monitor for alcohol withdrawal
DVT prophylaxis
Early nutrition
Currently at rest due to recent bleeding.
Maintain critical care observation for now.
[2024-01-28] MEDS: LIDOCAINE 4% PATCH 1 PATCH TOPICAL (12:09)
[2024-01-28] MEDS: SENOKOT 8.59999999999999964 MG PO (12:09)
[2024-01-28] MEDS: NOVOLOG FLEXPEN-MODERATE RESISTANCE 1 UNITS SC (12:10)
[2024-01-28 12:21] LABS: Glucose - Point of Care 152 mg/dl (70-99)
--- NOTE | 2024-01-28 13:09 | PTCARENOTE ---
no changes in assessments except pain more controlled with current regimen , good appetite
[2024-01-28] MEDS: PERCOCET 5/325 1 TABLET PO ×3 (13:38→22:09)
[2024-01-28 13:43] LABS: Hematocrit 24.7 % (37.0-47.0)
--- NOTE | 2024-01-28 15:18 | PTCARENOTE ---
repeat hemoglobin 8.0 , vascular MANUAL LATHE MACHINIST notified of results
[2024-01-28] MEDS: NSS IV (15:19)
--- NOTE | 2024-01-28 16:35 | OR.RPT ---
Operative Report
Operative Report
PROCEDURE DATE: 01/27/2024
Preoperative diagnosis: Chronic limb threatening ischemia left lower extremity.
Postoperative diagnosis: Same
Procedure: Left femoral to peroneal artery bypass (superficial femoral to peroneal artery) with ipsilateral nonreversed greater saphenous vein.
Surgeon: He
Socket Welder Helper: GAYATRI Walsh and GAYATRI Crawford, both required for all aspects of procedure including assistance with traction/countertraction, following of suture line, assistance with closure.
Complications: None
Anesthesia: General
Indications for procedure:
Chronic limb threatening ischemia. Severe comorbid conditions. Discussed only option was surgical revascularization with femoral to peroneal artery bypass. Discussed risks of procedure extensively. Included in this discussion of risks was issues
with her skin/compromise skin status, concern for wound healing, edema. In addition standard risks of femoral to peroneal artery bypass all fully discussed. Patient understood all wish to proceed.
Description of procedure:
Patient was identified brought to the operating room placed on the table in supine position. After the adequate administration of anesthesia she was prepped and draped in the standard surgical fashion. A standard preoperative timeout was
undertaken and everybody was in agreement the plan. A longitudinal incision was made in the left proximal thigh that was carried through skin subcutaneous tissue. The sartorius muscle was reflected medially and the superficial femoral artery was
identified posteriorly. Of note there was significant subcutaneous fatty tissue to get to that level and therefore the depth was moderate. I carefully circumferentially dissected the superficial femoral artery proximally and distally in my field
and passed Vesseloops around it. It was noted to be soft at certain junctures but there was a moderate amount of plaque. Based on preoperative angiographic imaging, the artery was open however. At this point I made a longitudinal incision in the
left calf below the knee mid segment just inferior to the tibia. This was carried through skin subcutaneous tissue. There is watery edema fluid. I then dissected down to the crural fascia layer and incised through this with the electrocautery. I
then divided the soleus muscle off the tibia and then entered the deep posterior compartment. The posterior tibial neurovascular bundle was identified. I dissected a plane anterior to the posterior tibial artery and vein and nerve and stayed in
that plane laterally until I identified the peroneal vein. I then carefully dissected the peroneal artery away from surrounding structures take great care to avoid any injury to the structures. There is noted to be a reasonably soft vessel. I
passed Vesseloops around approximately distally after careful circumferential dissection. These Vesseloops were single looped and not tightened.
At this point I then exposed the greater saphenous vein initially in the distal incision site (peroneal artery exposure incision site), and I traced it cephalad extending incisions all the way up to the groin area. Once I dissected a suitable
segment I then mobilized the vein out of its bed by ligating any branches between silk ties and then dividing them. It was a suitable vein. There was some branching in the groin area and I was peripheral to the saphenofemoral junction. Therefore
I then ligated the vein distally first with a silk tie and a clip and then transected. I then ligated proximally with a silk suture ligature and a clip. I then divided approximately. I then distended the vein under heparinized saline. It
distended very well.
At this point I then used a James tunneler to create a subsartorial tunnel between the 2 incision sites for the arterial exposures. At this point I give the patient an appropriate dose of approximately 100 units/kg of heparin. Next I double up
and tight my Vesseloops on the SFA proximally distally. I had to place an additional clamp on the SFA proximally to control the artery better. (Due to calcification). I now made an arteriotomy with an 11 blade and extended using a Obando scissor.
It was a fairly diseased artery but the lumen was widely patent. This made suturing somewhat more challenging, but I spatulated the vein maintaining it in nonreversed fashion and sutured in end-to-side anastomosis using a running 5-0 Prolene
suture. I completed and tied down my suture line. Next I released flow in the reno-sparks system. There is excellent pulsatile flow into the vein graft. There were a couple suture line bleeders I did place a couple of 5 oh or 6-0 Prolene sutures in a
hdhela-in-mmeex fashion to repair. Next I used a Barr valvulotome to valvulotomize the vein. I was able to successfully do so and now there is excellent pulsatile flow through the entirety of the vein graft that was hosing forward. I marked the
anterior surface under distention to avoid any kinking or twisting and then passed it through the tunnel confirming no kinking or twisting. There is still excellent pulsatile hosing blood flow. At this point I then double looped and tightened my
Vesseloops proximally and distally on the peroneal artery. I then made an arteriotomy with a [place]lip blade and extended using a Obando scissor. I then trimmed and spatulated the distal aspect of the vein graft and sewed an end to side anastomosis
using a running 7-0 Prolene suture into the peroneal artery. I confirmed good backbleeding prior to perform the anastomosis, and I had gently run a 1 mm dilator to make sure patency of the artery prior to the anastomosis as well. Now prior to
completing the anastomosis I gently ran a 1 mm dilator to confirm that the toe of the anastomosis was widely patent. It was not backbled well. I then backbled the reno-sparks artery proximally. I then flushed out the graft. (Bulldog clamp on the vein
graft temporarily released). I instilled heparinized saline and then completed and tied down my suture line. Next I released the proximal vessel loop on the peroneal artery, and then I released the bulldog clamp on the vein graft, and finally
released the outflow vessel loop. There was excellent pulsatile flow in the vein graft. There was an excellent pulse in the peroneal artery distal to the anastomosis as well. Doppler also confirmed and excellent graft augmented signal in the
peroneal artery. There is now also an excellent significantly graft augmented PT signal in the foot. At this point is very satisfied.
I then had to meticulously achieved hemostasis throughout the incision sites including the proximal distal anastomoses. I gave protamine to reverse the heparin as well. I then confirmed hemostasis, irrigated all incision sites. We then closed in
layers using Vicryl suture followed by skin clips. The arterial exposure sites were closed in multiple layers. Even the saphenectomy site and portions were closed in multiple layers due to the depth. A Nahun drain was left in the saphenectomy
incision bed at 1 portion where there is significant depth and brought out the skin through a separate stab incision and secured to the skin with a nylon suture. Dressings were applied. The patient tolerated the procedure well.
[2024-01-28] MEDS: LEXAPRO 20 MG PO (17:00)
[2024-01-28] MEDS: LOVENOX 40 MG SC (17:00)
[2024-01-28] MEDS: LIPITOR 80 MG PO (17:00)
[2024-01-28 17:05] LABS: Glucose - Point of Care 111 mg/dl (70-99)
--- NOTE | 2024-01-28 21:00 | PTCARENOTE ---
Pt doppler signals remain strong, will continue q4h pulse checks. VINEET left groin. Grant wrap CDI. Pt c/o pain constantly 'all over', morphine/percocet PRN. Pulse ox remains 86-88%. Pt educated on importance of keeping Sat 92% or greater. Pt oriented,
educated and continues to refuse nasal cannula. Will continue to monitor.
[2024-01-28] MEDS: SENOKOT PO (21:18)
[2024-01-28 22:14] LABS: Glucose - Point of Care 155 mg/dl (70-99)
[2024-01-29] VITALS (11 sets, daily range): BP systolic 105–129; BP diastolic 35–65
[2024-01-29] MEDS: MORPHINE SULFATE 2 MG IV ×2 (00:39→21:50)
[2024-01-29] MEDS: PERCOCET 5/325 1 TABLET PO ×4 (04:08→16:16)
[2024-01-29 04:56] LABS: Hematocrit 27.1 % (37.0-47.0); Hemoglobin 8.6 g/dL (12.0-16.0); Mean Corp Hgb Conc. 31.7 g/dL (33.0-37.0); Mean Corpuscular Hgb 27.3 pg (27.0-31.0); Mean Platelet Volume 10.8 fL (7.4-10.4); Platelet Count 394 10^3/uL (130-400); Red Blood Cell Count 3.15 10^6/uL (4.20-5.40); Red Cell Dist. Width 15.4 % (11.5-14.5); White Blood Cell Count 15.9 10^3/uL (4.8-10.8)
[2024-01-29 05:15] LABS: Blood Urea Nitrogen 22 mg/dl (7-17); Calcium 8.1 mg/dl (8.4-10.2); Carbon Dioxide 29 mmol/L (22-30); Chloride 97 mmol/L (98-107); Estimated Creatinine Clearance 51 ml/min; Glucose 82 mg/dl (70-99); Magnesium 2.3 mg/dl (1.6-2.3); Potassium 3.8 mmol/L (3.5-5.1); Sodium 131 mmol/L (135-145); eGFR 52.08
[2024-01-29] MEDS: STERILE WATER FOR INJECTION 10 ML IV ×2 (06:36→17:42)
[2024-01-29] MEDS: MAXIPIME 2000 MG IV ×2 (06:36→17:42)
--- NOTE | 2024-01-29 07:45 | PTCARENOTE ---
Received pt laying in bed. She is awake and alert. Intermittently moaning while trying to reposition herself. Dr. Santana, Dr. Logan and Sadaf Carpio transformation coach at the bedside. +doppler PT/DP signals. Right L/E more edematous than the left. Left
upper thigh swollen, tender. Dr. Santana removed VINEET drain. Dressing applied by ROTARY DERRICK OPERATOR. Left hand and right AC protective catheter both flushed and patent. Breath sounds posteriorly diminished in the bases. Tolerating oxygen 2 liters nasal cannula.
Saturation 97%. +SBX4.
--- NOTE | 2024-01-29 07:45 | PTCARENOTE ---
Received pt sitting up in bed, awake and alert. Intermittently moaning while adjusting herself in the bed. Dr. Santana, Sadaf RESENDIZ and Dr. Logan at the bedside. Dr. Santana removed the left thigh VINEET drain and ASTRID applied dry gauze
dressing secured with silk tape. Palmira MECHANICAL ENGINEERING ADVISOR on her anterior upper thigh. Left thigh swollen. Right L/E more edematous than the LLE. Heels elevated on pillow. +DP/PT doppler signals bilaterally. She admits to poor sensation which is chronic for her.
She can feel the pressure of me touching her feet. Aquacel dressing to her left medial thigh with large amount of old drainage and mid lower leg with areas of old drainage noted. Scattered small linear scabs to her hips, shoulders, arms and legs.
She stated she has itchy skin normally. Moisturizer applied to those areas. Tolerating 2 liters nasal cannula. Breath sounds in her bases dim. She was encouraged to take frequent slow deep breaths to aerate her lower lobes of her lungs to prevent
PNA. She demonstrated her deep breaths. Morbidly obese. +BSx4. Fair appetite. Purwick with yellow urine. Optifoam dressing to sacrum intact. Small linear stage II in gluteal cleft with white edges, surrounding skin dry, sloughing & blanchable red.
Skin barrier applied in the entire area. Bilateral heels with SBD intact. Heels elevated on pillows, she refused her fiber filled boots. She was informed that her sacrum is red and that it is imperative that she repositions herself and redistributed
her weight off her tail bone for the prevention of a wound. Air chair pillow intact under her sacrum. She wants to brush her teeth after breakfast. Partial CHG bath given at this time. Safe environment maintained. Will continue to monitor.
--- NOTE | 2024-01-29 07:58 | W.PN.VS ---
Addendum entered and electronically signed by Marlon Santana MD 01/29/24 08:36:
doing well
inc clean
+ signal
drain removed
oob and increase activity
ok to transfer to step down
follow labs and wbc
Original Note:
Today's Communication / Plan
-
Discussed with Dr. Santana
Assessment/Plan
-
Assessment: 78-year-old female POD #2 left femoral to peroneal artery bypass with ipsilateral nonreversed vein
Plan:
Dressings remained dry from yesterday, hemoglobin stable
Patient incontinent of urine, using pure wick, important to keep surgical incisions on inner thigh covered with waterproof dressing
Out of bed to chair
PT OT
Subjective Data
-
Date of Service: January 29, 2024
Patient seen at bedside this a.m., resting comfortably. No events overnight. No complaints at this time
Objective Data
-
Vital Signs
Temp Pulse Resp BP Pulse Ox
98.7 F 41 10 105/37 94
01/29/24 04:50 01/29/24 06:00 01/29/24 06:00 01/29/24 06:00 01/29/24 06:00
Intake and Output
01/28/24 01/29/24 01/30/24
06:59 06:59 06:59
Intake Total 2835 / 3040 2125 / 2125
Output Total 2405 / 2455 910 / 910
Balance 430 / 585 1215 / 1215
Intake:
Oral fluids 1200 / 1200 1520 / 1520
IV fluids (Total) 1385 / 1590 205 / 205
NSS 300 / 300
Nss 1,000 ml @ 80 mls/hr IV . 960 / 1040 80 / 80
[id number] GEREMIAS Rx#:[id number]
blood 125 / 250 125 / 125
IV piggybacks 150 / 150
Blood Products 250 / 250
Packed red blood cells 250 / 250
Blood Product Amount Infused ( 0 / 0 250 / 250
mL)
Packed Rbc Leukoreduced Unit 0 / 0 250 / 250
[id number]
Output:
Drain Output (Total)
Left Leg Hugo-Duncan
Urine, Jean Baptiste 2390 / 2440 400 / 400
Urine, Voided 500 / 500
Other:
How many times incontinent 1
MODERATE amount urine
How many times incontinent 5
SATURATED amount urine
Lab Results
01/29/24 04:20
01/29/24 04:20
Calcium 8.1 mg/dl (8.4-10.2) L 01/29/24 04:20
Magnesium 2.3 mg/dl (1.6-2.3) 01/29/24 04:20
Total Bilirubin 0.5 mg/dl (0.2-1.3) 01/25/24 05:39
AST 20 U/L (14-36) 01/25/24 05:39
ALT 15 U/L (0-35) 01/25/24 05:39
Alkaline Phosphatase 117 U/L (38-126) 01/25/24 05:39
Total Protein 6.4 g/dl (6.3-8.2) 01/25/24 05:39
Albumin 3.0 g/dl (3.5-5.0) L 01/25/24 05:39
Physical Exam
-
AAOx3
No tachycardia
Nonlabored respirations
Left lower extremity Grant wraps removed, Aquacel intact, no evidence hematoma, leg soft, mild edema, VINEET drain with scant serosanguineous output 10cc overnight
Left foot warm with Doppler DP signal
[2024-01-29 08:03] LABS: Glucose - Point of Care 103 mg/dl (70-99)
--- NOTE | 2024-01-29 08:22 | PHA.VAN.FU ---
Vancomycin Assessment / Plan
- Assessment
Renal Function: SCR Increasing (0.8>1.1)
WBC's are: Trending Down (17.1>15.9)
In the past 24 hrs, patient has been: Afebrile
Concomitant Antimicrobials: Cefepime, Vancomycin PO (Prophylactic dosing)
- Assessment - Therapeutic Drug Monitoring
Random Level: 14 drawn ~19 hrs after vancomycin 750mg dose given
- Dosing Plan
Dosing by Level: Re-dose today (Vancomycin 750mg x 1)
- Monitoring Plan
Random Level: Ordered for 01/30/24 at 06:00
- Follow Up
Pharmacy will continue to follow.
Vancomycin Follow UP
- -
Patient Age: 78
Patient Sex: Female
Vancomycin Day #: 9
Indication: Skin And Soft Tissue
Requesting Provider: Zuleima Gore / Placido
Pertinent Antimicrobial Allergies:
levofloxacin -foot and ankle swelling
Height / Weight:
Height 5 ft 4 in
Actual Weight 103.1 kg
Pertinent Past Medical History: BMI ~39, DM II, PAD
- Vital Signs / Lab Results
Temp Pulse Resp BP Pulse Ox
97.7 F 41 10 105/37 94
01/29/24 07:59 01/29/24 06:00 01/29/24 06:00 01/29/24 06:00 01/29/24 06:00
Lab Results - Hematology
01/27/24 01/27/24 01/28/24
05:23 17:40 03:43
WBC 13.4 H 22.0 H 17.1 H
01/29/24
04:20
WBC 15.9 H
Lab Results - Chemistry
01/27/24 01/27/24 01/28/24
05:23 17:40 03:43
BUN 20 H 15 18 H
Creatinine 0.9 0.8 0.8
Estimated Creat Clear 62 70 70
01/29/24
04:20
BUN 22 H
Creatinine 1.1 H
Estimated Creat Clear 51
01/28/24
03:43
Lactic Acid 2.4 H
Microbiology Results
01/26/24 13:15 Salmonella/Shigella Culture - Final
Feces/Stool No Salmonella, Shigella, Aeromonas or Plesiomonas species
isolated.
Campylobacter Culture - Final
No Campylobacter species isolated.
Shiga Toxin Test - Final
No E. coli Shiga Toxin 1 or 2 detected.
Therapeutic Drug Monitoring
Random Vancomycin 14.0 ug/ml 01/29/24 04:20
--- NOTE | 2024-01-29 08:31 | W.PN.HOSP.TC ---
Today's Communication/Plan
-
transfer to 2S
OOB/PT/OT
Assessment / Plan
Assessment / Plan
pt is a 78 year old female
Left Lower Ext Cellulitis with nonhealing Left Heel Wound and Critical limb threatening ischemia of left lower extremity--apprec vascular and wound care--s/p diagnostic angiogram 01/23-- s/p bypass surgery 01/26- was on vanco/zosyn but appears
allergic to zosyn--apprec ID-- changed Abx to cefepime with vanc --cont gabapentin, oxycodone and IV morphine PRN for pain control
ID following
Diarrhea with C. diff antigen positive toxin negative--suspect colonization, continue oral vanco prophylactically while on antibiotics
Bradycardia-- Holding MIX[employer] WET POUR atenolol, monitor BP
Acute hypoxic resp failure with possible sleep apnea. Pt was noted to desat, was on 6L NC, wean O2 as tolerated--now down to 2L (does not wear at home)
chronic nonhealing wounds (POA)- Stage 3 left heel pressure injury, POA- Stage 2 right heel pressure injury, POA- Stage 2 sacrum pressure injury, POA
h/o Recent Right lower extremity bypass for critical limb threatening ischemia in September 2023/Residual right heel wound
Coronary Artery Disease s/p SINDHU--Continue Isosorbide--Continue Aspirin
Chronic Diastolic Hearty Failure--Continue Lasix--Monitor Is&Os and Daily Weights
Essential Hypertension--Continue Hydralazine, holding MIXER WET POUR Atenolol
Hyperlipidemia--Continue atorvastatin
Diabetes Mellitus, Type II--HgbA1c 5.9%--Monitor sugars and continue coverage insulin
Anxiety/Depression--Continue Lexapro
Class II Obesity--Affects all aspects of care
Tobacco Use Disorder--Encourage smoking cessation
Mild hyponatremia
DVT proph: Lovenox SQ
Code Status: Full Code
transfer to tele (2S post op floor)
Anticipated Discharge: > 48 hours
Subjective/Interval History
-
Date of Service: January 29, 2024
pt sleepy today
Objective Data
-
Labs:
Laboratory Results
01/29/24
04:20
WBC 15.9 H
Hgb 8.6 L
Hct 27.1 L
Plt Count 394
Sodium 131 L
Potassium 3.8
Chloride 97 L
Carbon Dioxide 29
BUN 22 H
Creatinine 1.1 H
Glucose 82
Calcium 8.1 L
Vital Signs:
max temp for 24 hours
01/28/24
19:26
Temp 98.6 F
Vital Signs
Temp Pulse Resp BP Pulse Ox
97.7 F 41 10 105/37 94
01/29/24 07:59 01/29/24 06:00 01/29/24 06:00 01/29/24 06:00 01/29/24 06:00
I&O
01/28/24 01/29/24 01/30/24
06:59 06:59 06:59
Intake Total 2835 / 3040 2125 / 2125
Output Total 2405 / 2455 910 / 910
Balance 430 / 585 1215 / 1215
Review of Systems
-
All other systems: Reviewed and negative
Physical Exam
-
General: Well Developed, Well Nourished and No Apparent Distress
HEENT: Normocephalic and Atraumatic
Respiratory: Clear to Auscultation; Negative Wheezes or Rhonchi
Cardiac: Regular Rhythm and S1/S2; Negative Murmur
GI: Soft, Nontender, Nondistended and Normal Bowel Sounds
Musculoskeletal: No Clubbing, No Cyanosis, No Edema and Other (legs post op)
Skin: Warm
Neuro: Awake
Psych: Calm
[2024-01-29] MEDS: NOVOLOG FLEXPEN-MODERATE RESISTANCE SC ×3 (08:48→17:23)
[2024-01-29] MEDS: LIDOCAINE 4% PATCH 1 PATCH TOPICAL (08:49)
[2024-01-29] MEDS: APRESOLINE 50 MG PO (08:50)
[2024-01-29] MEDS: NEURONTIN 100 MG PO ×3 (08:50→21:50)
[2024-01-29] MEDS: IMDUR (EXTENDED RELEASE) 60 MG PO (08:51)
[2024-01-29] MEDS: SENOKOT 8.59999999999999964 MG PO (08:51)
[2024-01-29] MEDS: FIRVANQ 125 MG PO ×2 (08:51→20:24)
[2024-01-29] MEDS: ASPIR LOW (ENTERIC COATED) 81 MG PO (08:51)
--- NOTE | 2024-01-29 10:04 | PTCARENOTE ---
Small soft BM. Cleansed. Calazime cream to buttocks, Optifoam dressing changed, skin barrier to gluteal cleft and surrounding skin. Moisturizer applied to her back and legs again. Sitting up in bed for breakfast. Purwick changed.
--- NOTE | 2024-01-29 10:45 | W.PN.ID1 ---
Date of Service
Date of Service: January 29, 2024
Today's Communication
Continue abx's.
Assessment / Plan
# Left heel wound infection resolving.
# Chronic right medial heel wound - improving.
# PAD - s/p LLE bypass 01/27/24. hx RLE bypass (09/2023)
# Leukocytosis trending down
# MRSA colonization.
# Drug rash vs. IV infiltration from Zosyn
- Continue cefepime (d9 of 10 abx)
- Continue Vancomycin (d9 of 10)
-Follow wbc
# Diarrhea - resolved
- C. diff Ag+, toxin negative
- suspect colonization
- On prophylactic oral Vancomycin- decreased dose to bid through 02/03.
#Additional Past Medical History:
Hypertension
COPD
Rheumatoid arthritis
CAD status post stent
Fatty liver
Wheelchair-bound
Urinary incontinence
Depression/anxiety
PAD s/p R fem to peroneal artery bypass (10/06/23)
Chronic pain syndrome
Skin cancer excision
Overactive bladder
Urinary incontinence
Class III obesity BMI 39
Venous stasis
Alcohol use disorder
Tobacco abuse
Bilateral total knee replacement
Left total hip replacement
L5-S1 hemilaminectomy
Cervical spine surgery
Foot surgeries with hardware
Chief Complaint
-: Other (Wound)
Subjective / Review of Systems
No new complaints.
Vital Signs / Physical Exam
Vital Signs
Vital Signs
Temp Pulse Resp BP Pulse Ox
97.7 F 42 14 117/43 98
01/29/24 07:59 01/29/24 09:15 01/29/24 09:15 01/29/24 09:00 01/29/24 09:15
Physical Exam
Constitutional: No Acute Distress
Pulmonary: Clear
Gastrointestinal: Soft, Non Tender and Non Distended
Objective Data
Lab Data
Lab Results
01/29/24 04:20
01/29/24 04:20
PT 15.9 Sec (11.4-14.6) H 01/27/24 17:40
INR 1.26 01/27/24 17:40
APTT 34.9 Sec (23.4-35.0) 01/27/24 17:40
Estimated Creat Clear 51 ml/min 01/29/24 04:20
Lactic Acid 2.4 mmol/L (0.7-2.0) H 01/28/24 03:43
Total Bilirubin 0.5 mg/dl (0.2-1.3) 01/25/24 05:39
AST 20 U/L (14-36) 01/25/24 05:39
ALT 15 U/L (0-35) 01/25/24 05:39
Alkaline Phosphatase 117 U/L (38-126) 01/25/24 05:39
Most recent labs reviewed.
Micro Results:
01/26/24 13:15 Salmonella/Shigella Culture - Final
Feces/Stool No Salmonella, Shigella, Aeromonas or Plesiomonas species
isolated.
Campylobacter Culture - Final
No Campylobacter species isolated.
Shiga Toxin Test - Final
No E. coli Shiga Toxin 1 or 2 detected.
01/26/24 13:15 C. difficile GDH Antigen & Toxins - Final
Feces/Stool C. difficile antigen positive, toxin negative.
Clostridium difficile present, but toxin not detected.
Patient may be a carrier, colonized with nontoxinogenic
strain or the level of toxin in sample is below detection
limits. This information should be used in conjunction with
the patient's clinical history.
- Final
Negative for Norovirus GI and GII.
01/21/24 11:25 Blood Culture - Final
Blood/Venous No Growth - Final Report
01/21/24 CXR negative
01/21/24 R Foot XRAY: Soft tissue swelling. No definite radiographic evidence of osteomyelitis.�
--- NOTE | 2024-01-29 10:52 | W.PN.INTV ---
Today's Communication / Plan
Recommendations
Continue postoperative care
Monitor H&H
Pain control with narcotics, monitor respiratory status closely
Wound care
Neurovascular checks
Transfer to floors
Sign off
Assessment
-
Status post left lower extremity bypass 01/27/2024
Prior history of hx RLE bypass (09/2023)
Left lower extremity cellulitis-nonhealing ulcer-possible Pseudomonas infection.
Acute on chronic blood loss anemia
MRSA colonization.
Conditions present prior admission:
Hypertension
COPD
Rheumatoid arthritis
CAD status post stent
Fatty liver
Wheelchair-bound
Urinary incontinence
Depression/anxiety
PAD s/p R fem to peroneal artery bypass (10/06/23)
Chronic pain syndrome
Skin cancer excision
Overactive bladder
Urinary incontinence
Class III obesity BMI 39
Venous stasis
Alcohol use disorder-Daily drinker
Tobacco abuse-ongoing
Bilateral total knee replacement
Left total hip replacement
L5-S1 hemilaminectomy
Cervical spine surgery
Foot surgeries with hardware
Assessment and plan:
Hemodynamically stable overnight
No further bleeding, surgical incision is intact and dry.
-
Increase mobility as able.
Neuro and vascular checks per protocol
Vascular surgery following-correspondence and operative notes reviewed
Continue with local care
Continue to monitor for bleeding
Follow H&H. Hemoglobin is stable.
Status post 1 unit packed red blood cells.
With history of heart failure, monitor volume status closely. Currently does not appear volume overloaded.
Nonhealing left lower extremity wound-continue antibiotics per infectious disease. Cefepime/vancomycin.
Pain control with narcotics: Will try to minimize.
Monitor respiratory status closely
Follow blood sugars
Insulin supplementation as needed
C. difficile antigen positive cough toxin negative. On prophylactic vancomycin.
Tobacco abuse: Encourage to quit smoking. Patient not interested
DVT prophylaxis
No additional recommendation from the Critical care perspective.
Patient to be transferred to general floors.
Please call pulmonary if any respiratory issues arise.
Subjective Dataa
Subjective Data
Date of Service:
Date of Service: January 29, 2024
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
Subjective:
patient states the pain is improved, controlled
Denies shortness of breath
Has been out of bed
No further bleeding
Review of Systems
Cardiopulmonary: Dyspnea (n) and Dyspnea on Exertion (n)
GI: Abdominal Pain (n) and Nausea (n)
Objective Data
Data Reviewed
Vital Signs / I&O / Oxygen:
Vital Signs
Temp Pulse Resp BP Pulse Ox
97.7 F 42 14 117/43 98
01/29/24 07:59 01/29/24 09:15 01/29/24 09:15 01/29/24 09:00 01/29/24 09:15
Intake and Output
01/28/24 01/29/24 01/30/24
06:59 06:59 06:59
Intake Total 2835 / 3040 2125 / 2125
Output Total 2405 / 2455 910 / 910
Balance 430 / 585 1215 / 1215
SaO2 98
Nasal Cannula flow liters per 2
minute
Physical Exam
General: Respiratory Distress
HEENT: Normocephalic
Cardiovascular: S1-S2
Respiratory: Clear and Non-Labored Respirations
GI: Soft and Non Distended
Neurology: Awake
Skin: Other (Dressing is intact and dry. Peripheral pulses present.)
Labs/Micro/Reports
Lab Data
01/29/24 04:20
01/29/24 04:20
Microbiology
01/26/24 13:15 Feces/Stool Salmonella/Shigella Culture - Final
No Salmonella, Shigella, Aeromonas or Plesiomonas species
isolated.
01/26/24 13:15 Feces/Stool Campylobacter Culture - Final
No Campylobacter species isolated.
01/26/24 13:15 Feces/Stool Shiga Toxin Test - Final
No E. coli Shiga Toxin 1 or 2 detected.
01/26/24 13:15 Feces/Stool C. difficile GDH Antigen & Toxins - Final
C. difficile antigen positive, toxin negative.
Clostridium difficile present, but toxin not detected.
Patient may be a carrier, colonized with nontoxinogenic
strain or the level of toxin in sample is below detection
limits. This information should be used in conjunction with
the patient's clinical history.
01/26/24 13:15 Feces/Stool - Final
Negative for Norovirus GI and GII.
01/21/24 11:25 Blood/Venous Blood Culture - Final
No Growth - Final Report
[2024-01-29] MEDS: VANCOCIN 150 IV (11:26)
--- NOTE | 2024-01-29 11:44 | PTCARENOTE ---
Right foot with fiber filled boot on. At first she wanted her heel to rest on the bed without pillow or cushion. She was informed that due to her poor circulation and poor sensation she is high risk of developing a sore. She was agreeable to the
fiber filled boot at this time.
[2024-01-29] MEDS: TYLENOL 325 MG PO ×2 (11:45→16:17)
[2024-01-29 12:01] LABS: Glucose - Point of Care 136 mg/dl (70-99)
[2024-01-29] MEDS: DAKIN'S SOLUTION 0.125% 1/4 STRENGTH 1 ML TOPICAL (14:00)
--- NOTE | 2024-01-29 14:15 | PTCARENOTE ---
Bilateral heel dressings changed. Left heel with dry flaky area, cleansed with vashi, rinsed with water. Skin barrier applied and silicon border dressing to protect. Right heel with Stage III with pale green drainage on dressing. Surrounding skin
white with edges curled in. Cleansed with dakins, skin barrier to surrounding skin, non-adhering dressing applied and covered with silicone border dressing. Fiber relief boot placed on right foot.
--- NOTE | 2024-01-29 15:16 | PTCARENOTE ---
Breath sounds improved in the bases. RA saturation 95%. Repositioned on her right side with pillow, air cushion remains under her buttocks. Room darkened for her to take a nap.
--- NOTE | 2024-01-29 16:00 | TRANSFER ---
Report called to [facility]. Pt will be transferred via bed, monitored.
[2024-01-29] MEDS: LASIX PO (17:09)
[2024-01-29 17:19] LABS: Glucose - Point of Care 96 mg/dl (70-99)
[2024-01-29] MEDS: LEXAPRO 20 MG PO (17:42)
[2024-01-29] MEDS: LOVENOX 40 MG SC (17:42)
[2024-01-29] MEDS: LIPITOR 80 MG PO (17:52)
--- NOTE | 2024-01-29 18:25 | PTCARENOTE ---
recieved pt from ICU via bed, overlay static applied, vital signs taken, oriented to her room, call meyers within reach. offers no complaints at this time.
[2024-01-29] MEDS: SENOKOT PO (20:24)
[2024-01-29 21:37] LABS: Glucose - Point of Care 105 mg/dl (70-99)
[2024-01-30] VITALS (8 sets, daily range): BP systolic 142–173; BP diastolic 45–72; PULSE 59; O2SAT 94; BMI 39.0
[2024-01-30] MEDS: MORPHINE SULFATE 2 MG IV ×3 (03:11→20:14)
[2024-01-30] MEDS: STERILE WATER FOR INJECTION 10 ML IV ×2 (05:47→17:09)
[2024-01-30] MEDS: MAXIPIME 2000 MG IV ×2 (05:47→17:08)
[2024-01-30 07:59] LABS: Glucose - Point of Care 90 mg/dl (70-99)
[2024-01-30 08:07] LABS: Hematocrit 28.2 % (37.0-47.0); Hemoglobin 8.8 g/dL (12.0-16.0); Mean Corp Hgb Conc. 31.2 g/dL (33.0-37.0); Mean Corpuscular Hgb 27.1 pg (27.0-31.0); Mean Corpuscular Volume 86.8 fL (81.0-99.0); Mean Platelet Volume 11.1 fL (7.4-10.4); Platelet Count 420 10^3/uL (130-400); Red Blood Cell Count 3.25 10^6/uL (4.20-5.40); Red Cell Dist. Width 15.7 % (11.5-14.5); White Blood Cell Count 13.3 10^3/uL (4.8-10.8)
[2024-01-30 08:24] LABS: Vancomycin Random 15.6 ug/ml
[2024-01-30] MEDS: LIDOCAINE 4% PATCH 1 PATCH TOPICAL (08:41)
[2024-01-30] MEDS: FIRVANQ 125 MG PO ×2 (08:41→20:11)
[2024-01-30] MEDS: THERAGRAN 1 TABLET PO (08:42)
[2024-01-30] MEDS: NEURONTIN 100 MG PO ×3 (08:42→21:50)
[2024-01-30] MEDS: APRESOLINE 50 MG PO (08:42)
[2024-01-30] MEDS: ASPIR LOW (ENTERIC COATED) 81 MG PO (08:42)
[2024-01-30] MEDS: LASIX 40 MG PO (08:43)
[2024-01-30] MEDS: VITAMIN D3 (cholecalciferol) 25 MCG PO (08:43)
[2024-01-30] MEDS: IMDUR (EXTENDED RELEASE) 60 MG PO (08:43)
[2024-01-30] MEDS: NOVOLOG FLEXPEN-MODERATE RESISTANCE SC ×3 (08:43→17:02)
[2024-01-30] MEDS: DAKIN'S SOLUTION 0.125% 1/4 STRENGTH 473 ML TOPICAL (08:43)
[2024-01-30] MEDS: SENOKOT PO ×2 (08:47→20:11)
[2024-01-30 09:00] LABS: Blood Urea Nitrogen 20 mg/dl (7-17); Calcium 8.4 mg/dl (8.4-10.2); Carbon Dioxide 28 mmol/L (22-30); Chloride 105 mmol/L (98-107); Estimated Creatinine Clearance 62 ml/min; Glucose 74 mg/dl (70-99); Magnesium 2.4 mg/dl (1.6-2.3); Sodium 137 mmol/L (135-145); eGFR > 60.00
--- NOTE | 2024-01-30 09:11 | W.PN.VS ---
Today's Communication / Plan
-
increase activity
Assessment/Plan
-
Assessment: 78-year-old female POD #3 left femoral to peroneal artery bypass with ipsilateral nonreversed vein
Plan:
dressing removedinc clean
Patient incontinent of urine, using pure wick, important to keep surgical incisions on inner thigh covered with waterproof dressing
Out of bed to chair
PT OT
Subjective Data
-
Date of Service: January 30, 2024
Patient doing well this am
Objective Data
-
Vital Signs
Temp Pulse Resp BP Pulse Ox
98.4 F 61 18 173/58 93
01/30/24 07:40 01/30/24 07:40 01/30/24 07:40 01/30/24 07:40 01/30/24 07:40
Intake and Output
01/29/24 01/30/24 01/31/24
06:59 06:59 06:59
Intake Total 2125 / 2125 870 / 870
Output Total 910 / 910 1250 / 1250
Balance 1215 / 1215 -380 / -380
Intake:
Oral fluids 1520 / 1520 720 / 720
IV fluids (Total) 205 / 205
Nss 1,000 ml @ 80 mls/hr IV . 80 / 80
[id number] [facility] Rx#:[id number]
blood 125 / 125
IV piggybacks 150 / 150 150 / 150
Blood Product Amount Infused ( 250 / 250
mL)
Packed Rbc Leukoreduced Unit 250 / 250
[id number]
Output:
Drain Output (Total)
Left Leg Hugo-Duncan
Urine, Jean Baptiste 400 / 400
Urine, Voided 500 / 500 1250 / 1250
Other:
Number of approximated MODERATE 1
amounts of urine
Number of approximated LARGE 1
amounts of urine
How many times incontinent 1 1
MODERATE amount urine
How many times incontinent 1
SATURATED amount urine
Lab Results
01/30/24 07:26
01/30/24 07:26
Calcium 8.4 mg/dl (8.4-10.2) 01/30/24 07:26
Magnesium 2.4 mg/dl (1.6-2.3) H 01/30/24 07:26
Total Bilirubin 0.5 mg/dl (0.2-1.3) 01/25/24 05:39
AST 20 U/L (14-36) 01/25/24 05:39
ALT 15 U/L (0-35) 01/25/24 05:39
Alkaline Phosphatase 117 U/L (38-126) 01/25/24 05:39
Total Protein 6.4 g/dl (6.3-8.2) 01/25/24 05:39
Albumin 3.0 g/dl (3.5-5.0) L 01/25/24 05:39
Physical Exam
-
rrr
ctab
edema in leg
inc c/d/i
+ peroneal signal
--- NOTE | 2024-01-30 09:19 | W.PN.HOSP.TC ---
Today's Communication/Plan
-
d/c planning--waiting for clearance from vascular
OOB
Assessment / Plan
Assessment / Plan
pt is a 78 year old female
Left Lower Ext Cellulitis with nonhealing Left Heel Wound and Critical limb threatening ischemia of left lower extremity--apprec vascular and wound care--s/p diagnostic angiogram 01/23-- s/p bypass surgery 01/26- was on vanco/zosyn but appears
allergic to zosyn--apprec ID-- changed Abx to cefepime/vanco (day 08/24 today) --cont gabapentin, oxycodone and IV morphine PRN for pain control -- needs OOB, PT/OT
Diarrhea with C. diff antigen positive toxin negative--suspect colonization, continue oral vanco prophylactically while on antibiotics
Bradycardia-- Holding [employer] atenolol, monitor BP
Acute hypoxic resp failure with possible sleep apnea-- Pt was noted to desat, was on 6L NC, wean O2 as tolerated--now off
chronic nonhealing wounds (POA)- Stage 3 left heel pressure injury, POA- Stage 2 right heel pressure injury, POA- Stage 2 sacrum pressure injury, POA
h/o Recent Right lower extremity bypass for critical limb threatening ischemia in September 2023/Residual right heel wound
Coronary Artery Disease s/p SINDHU--Continue Isosorbide--Continue Aspirin
Chronic Diastolic Hearty Failure--Continue Lasix--Monitor Is&Os and Daily Weights
Essential Hypertension--Continue Hydralazine, holding [employer] Atenolol
Hyperlipidemia--Continue atorvastatin
Diabetes Mellitus, Type II--HgbA1c 5.9%--Monitor sugars and continue coverage insulin
Anxiety/Depression--Continue Lexapro
Class II Obesity--Affects all aspects of care
Tobacco Use Disorder--Encourage smoking cessation
Mild hyponatremia
DVT proph: Lovenox SQ
Code Status: Full Code
Anticipated Discharge: 24 - 48 hours
Subjective/Interval History
-
Date of Service: January 30, 2024
pt without c/o--nursing reports a lot of serosanguineous fluid draining
Objective Data
-
Labs:
Laboratory Results
01/30/24
07:26
WBC 13.3 H
Hgb 8.8 L
Hct 28.2 L
Plt Count 420 H
Sodium 137
Potassium 4.0
Chloride 105
Carbon Dioxide 28
BUN 20 H
Creatinine 0.9
Glucose 74
Calcium 8.4
Vital Signs:
max temp for 24 hours
01/29/24
15:17
Temp 99.1 F
Vital Signs
Temp Pulse Resp BP Pulse Ox
98.4 F 61 18 173/58 93
01/30/24 07:40 01/30/24 07:40 01/30/24 07:40 01/30/24 07:40 01/30/24 07:40
I&O
01/29/24 01/30/24 01/31/24
06:59 06:59 06:59
Intake Total 2125 / 2125 870 / 870
Output Total 910 / 910 1250 / 1250
Balance 1215 / 1215 -380 / -380
Review of Systems
-
All other systems: Reviewed and negative
Physical Exam
-
General: Well Developed, Well Nourished and No Apparent Distress
HEENT: Normocephalic and Atraumatic; Negative Oxygen
Respiratory: Clear to Auscultation; Negative Wheezes or Rhonchi
Cardiac: Regular Rhythm and S1/S2; Negative Murmur
GI: Soft, Nontender, Nondistended and Normal Bowel Sounds
Musculoskeletal: No Clubbing, No Cyanosis and No Edema (ana in place to lower leg)
Skin: Warm
Neuro: Awake
--- NOTE | 2024-01-30 10:26 | PHA.VAN.FU ---
Vancomycin Assessment / Plan
- Assessment
Renal Function: SCR Decreasing (1.1>0.9)
WBC's are: Trending Down (15.9>13.3)
In the past 24 hrs, patient has been: Afebrile
Concomitant Antimicrobials: Cefepime, PO Vancomycin (prophylactic)
- Assessment - Therapeutic Drug Monitoring
Random Level: 15.6 drawn ~20 hrs after 750mg dose of vancomycin given yesterday
- Dosing Plan
Dosing by Level: Re-dose today (Vancomycin 750mg x 1 dose)
- Monitoring Plan
Random Level: Ordered for 01/31/24 at 06:00
- Follow Up
Pharmacy will continue to follow.
Vancomycin Follow UP
- -
Patient Age: 78
Patient Sex: Female
Vancomycin Day #: 10
Indication: Skin And Soft Tissue
Requesting Provider: Zuleima Gore / Placido
Pertinent Antimicrobial Allergies:
levofloxacin -foot and ankle swelling
Height / Weight:
Height 5 ft 4 in
Actual Weight 102.965 kg
Pertinent Past Medical History: BMI ~39, DM II, PAD
- Vital Signs / Lab Results
Temp Pulse Resp BP Pulse Ox
98.4 F 61 18 173/58 93
01/30/24 07:40 01/30/24 07:40 01/30/24 07:40 01/30/24 07:40 01/30/24 07:40
Lab Results - Hematology
01/27/24 01/28/24 01/29/24
17:40 03:43 04:20
WBC 22.0 H 17.1 H 15.9 H
01/30/24
07:26
WBC 13.3 H
Lab Results - Chemistry
01/27/24 01/28/24 01/29/24
17:40 03:43 04:20
BUN 15 18 H 22 H
Creatinine 0.8 0.8 1.1 H
Estimated Creat Clear 70 70 51
01/30/24
07:26
BUN 20 H
Creatinine 0.9
Estimated Creat Clear 62
01/28/24
03:43
Lactic Acid 2.4 H
Microbiology Results
01/26/24 13:15 Salmonella/Shigella Culture - Final
Feces/Stool No Salmonella, Shigella, Aeromonas or Plesiomonas species
isolated.
Campylobacter Culture - Final
No Campylobacter species isolated.
Shiga Toxin Test - Final
No E. coli Shiga Toxin 1 or 2 detected.
Therapeutic Drug Monitoring
Random Vancomycin 15.6 ug/ml 01/30/24 07:26
[2024-01-30 12:21] LABS: Glucose - Point of Care 117 mg/dl (70-99)
[2024-01-30] MEDS: VANCOCIN 150 IV (12:22)
[2024-01-30] MEDS: TYLENOL 325 MG PO ×2 (12:22→17:07)
--- NOTE | 2024-01-30 13:31 | CM ---
CM spoke with patient at bedside. Patient out of bed to chair and participated with therapy today. CM will send updated clinicals to the SNF options chosen by the family. CM will continue to follow for discharge planning needs.
Plan; home with no needs
--- NOTE | 2024-01-30 14:08 | W.PN.ID1 ---
Date of Service
Date of Service: January 30, 2024
Today's Communication
Last day of cefepime and IV Vancomycin.
Assessment / Plan
# Left heel wound infection resolving.
# Chronic right medial heel wound - improving.
# PAD - s/p LLE bypass 01/27/24. hx RLE bypass (09/2023)
# Leukocytosis continues to improve.
# MRSA colonization.
# Drug rash vs. IV infiltration from Zosyn
- Continue cefepime (d10 of 10 abx)
- Continue Vancomycin (d10 of 10)
-Follow wbc
# Diarrhea - resolved
- C. diff Ag+, toxin negative
- suspect colonization
- On prophylactic oral Vancomycin bid through 02/03.
#Additional Past Medical History:
Hypertension
COPD
Rheumatoid arthritis
CAD status post stent
Fatty liver
Wheelchair-bound
Urinary incontinence
Depression/anxiety
PAD s/p R fem to peroneal artery bypass (10/06/23)
Chronic pain syndrome
Skin cancer excision
Overactive bladder
Urinary incontinence
Class III obesity BMI 39
Venous stasis
Alcohol use disorder
Tobacco abuse
Bilateral total knee replacement
Left total hip replacement
L5-S1 hemilaminectomy
Cervical spine surgery
Foot surgeries with hardware
Chief Complaint
-: Other (Wound)
Subjective / Review of Systems
No complaint.
Vital Signs / Physical Exam
Vital Signs
Vital Signs
Temp Pulse Resp BP Pulse Ox
98.2 F 51 18 149/72 93
01/30/24 11:20 01/30/24 11:20 01/30/24 11:20 01/30/24 11:20 01/30/24 11:20
Physical Exam
Constitutional: No Acute Distress and Comfortable
Gastrointestinal: Soft, Non Tender and Non Distended
Objective Data
Lab Data
Lab Results
01/30/24 07:26
01/30/24 07:26
PT 15.9 Sec (11.4-14.6) H 01/27/24 17:40
INR 1.26 01/27/24 17:40
APTT 34.9 Sec (23.4-35.0) 01/27/24 17:40
Estimated Creat Clear 62 ml/min 01/30/24 07:26
Lactic Acid 2.4 mmol/L (0.7-2.0) H 01/28/24 03:43
Total Bilirubin 0.5 mg/dl (0.2-1.3) 01/25/24 05:39
AST 20 U/L (14-36) 01/25/24 05:39
ALT 15 U/L (0-35) 01/25/24 05:39
Alkaline Phosphatase 117 U/L (38-126) 01/25/24 05:39
Most recent labs reviewed.
Micro Results:
01/26/24 13:15 Salmonella/Shigella Culture - Final
Feces/Stool No Salmonella, Shigella, Aeromonas or Plesiomonas species
isolated.
Campylobacter Culture - Final
No Campylobacter species isolated.
Shiga Toxin Test - Final
No E. coli Shiga Toxin 1 or 2 detected.
01/26/24 13:15 C. difficile GDH Antigen & Toxins - Final
Feces/Stool C. difficile antigen positive, toxin negative.
Clostridium difficile present, but toxin not detected.
Patient may be a carrier, colonized with nontoxinogenic
strain or the level of toxin in sample is below detection
limits. This information should be used in conjunction with
the patient's clinical history.
- Final
Negative for Norovirus GI and GII.
01/21/24 11:25 Blood Culture - Final
Blood/Venous No Growth - Final Report
01/21/24 CXR negative
01/21/24 R Foot XRAY: Soft tissue swelling. No definite radiographic evidence of osteomyelitis.�
[2024-01-30] MEDS: PERCOCET 5/325 1 TABLET PO ×2 (14:34→23:38)
[2024-01-30 17:00] LABS: Glucose - Point of Care 131 mg/dl (70-99)
[2024-01-30] MEDS: LOVENOX 40 MG SC (17:04)
[2024-01-30] MEDS: LIPITOR 80 MG PO (17:04)
[2024-01-30] MEDS: LEXAPRO 20 MG PO (17:05)
[2024-01-30 21:40] LABS: Glucose - Point of Care 90 mg/dl (70-99)
[2024-01-30] MEDS: BENADRYL 25 MG PO (21:50)
[2024-01-31] VITALS (7 sets, daily range): BP systolic 147–188; BP diastolic 43–87; BMI 37.9
[2024-01-31] MEDS: MORPHINE SULFATE 2 MG IV ×3 (03:53→21:29)
[2024-01-31] MEDS: MAXIPIME 2000 MG IV (05:40)
[2024-01-31] MEDS: STERILE WATER FOR INJECTION 10 ML IV (05:40)
[2024-01-31 07:22] LABS: Hematocrit 29.5 % (37.0-47.0); Mean Corp Hgb Conc. 30.5 g/dL (33.0-37.0); Mean Corpuscular Hgb 27.1 pg (27.0-31.0); Mean Corpuscular Volume 88.9 fL (81.0-99.0); Mean Platelet Volume 11.1 fL (7.4-10.4); Platelet Count 407 10^3/uL (130-400); Red Blood Cell Count 3.32 10^6/uL (4.20-5.40); Red Cell Dist. Width 15.9 % (11.5-14.5); White Blood Cell Count 12.2 10^3/uL (4.8-10.8)
[2024-01-31 07:29] LABS: Glucose - Point of Care 93 mg/dl (70-99)
[2024-01-31 08:04] LABS: Calcium 8.6 mg/dl (8.4-10.2); Carbon Dioxide 28 mmol/L (22-30); Chloride 105 mmol/L (98-107); Estimated Creatinine Clearance 61 ml/min; Glucose 80 mg/dl (70-99); Magnesium 2.3 mg/dl (1.6-2.3); Potassium 3.7 mmol/L (3.5-5.1); Sodium 137 mmol/L (135-145); eGFR > 60.00
--- NOTE | 2024-01-31 08:15 | PHA.VAN.FU ---
Vancomycin Assessment / Plan
- Assessment
Renal Function: Stable
In the past 24 hrs, patient has been: Afebrile
Concomitant Antimicrobials: cefepime
- Assessment - Therapeutic Drug Monitoring
Random Level: 15 - drawn ~17H after previous dose of 750mg
- Dosing Plan
Dosing by Level: Re-dose today (Vanc 750mg)
- Monitoring Plan
No level(s) ordered at this time: will hold off on further levels given duration plans
- Follow Up
Pharmacy will continue to follow.
Vancomycin Follow UP
- -
Patient Age: 78
Patient Sex: Female
Vancomycin Day #: 11
Indication: Skin And Soft Tissue
Requesting Provider: Zuleima Gore / Placido
Pertinent Antimicrobial Allergies:
levofloxacin -foot and ankle swelling
Height / Weight:
Height 5 ft 4 in
Actual Weight 100.062 kg
Pertinent Past Medical History: BMI ~39, DM II, PAD
- Vital Signs / Lab Results
Temp Pulse Resp BP Pulse Ox
97.4 F 56 16 188/64 95
01/31/24 07:52 01/31/24 07:52 01/31/24 07:52 01/31/24 07:52 01/31/24 07:52
Lab Results - Hematology
01/29/24 01/30/24
04:20 07:26
WBC 15.9 H 13.3 H
Lab Results - Chemistry
01/29/24 01/30/24 01/31/24
04:20 07:26 05:42
BUN 22 H 20 H
Creatinine 1.1 H 0.9 0.9
Estimated Creat Clear 51 62 61
Therapeutic Drug Monitoring
Random Vancomycin 15.0 ug/ml 01/31/24 05:42
[2024-01-31 08:16] LABS: Blood Urea Nitrogen 20 mg/dl (7-17)
[2024-01-31] MEDS: THERAGRAN 1 TABLET PO (09:10)
[2024-01-31] MEDS: NEURONTIN 100 MG PO ×3 (09:10→20:43)
[2024-01-31] MEDS: IMDUR (EXTENDED RELEASE) 60 MG PO (09:10)
[2024-01-31] MEDS: APRESOLINE 50 MG PO ×2 (09:10→20:43)
[2024-01-31] MEDS: SENOKOT 8.59999999999999964 MG PO ×2 (09:10→20:44)
[2024-01-31] MEDS: ASPIR LOW (ENTERIC COATED) 81 MG PO (09:11)
[2024-01-31] MEDS: FIRVANQ 125 MG PO ×2 (09:11→20:44)
[2024-01-31] MEDS: VITAMIN D3 (cholecalciferol) 25 MCG PO (09:11)
[2024-01-31] MEDS: NOVOLOG FLEXPEN-MODERATE RESISTANCE SC ×2 (09:11→16:53)
[2024-01-31] MEDS: LIDOCAINE 4% PATCH 1 PATCH TOPICAL (09:12)
[2024-01-31] MEDS: LASIX 40 MG PO (09:13)
[2024-01-31] MEDS: DAKIN'S SOLUTION 0.125% 1/4 STRENGTH 1 ML TOPICAL (09:13)
[2024-01-31] MEDS: PERCOCET 5/325 1 TABLET PO ×2 (09:14→17:30)
--- NOTE | 2024-01-31 09:29 | W.PN.VS ---
Addendum entered and electronically signed by Flavio Cutler MD 01/31/24 12:22:
Seen and examined this a.m. with GAYATRI Walsh. Agree with findings as noted below. Left lower extremity incisions all clean dry and intact. 2+ palpable graft pulse. Foot warm. Plan/as discussed and noted below.
Original Note:
Today's Communication / Plan
-
Seen and assessed with Dr Cutler
Assessment/Plan
-
Assessment: 78-year-old female POD #5 left femoral to peroneal artery bypass with ipsilateral nonreversed vein
Plan:
Out of bed to chair
PT OT
Okay for transfer to SNF from vascular standpoint
Will add follow up to chart
Subjective Data
-
Date of Service: January 31, 2024
Patient seen at bedside this a.m. with Dr. Cutler. Patient offers no complaints at this time. She has been able to participate physical therapy from the chair. No events overnight
Objective Data
-
Vital Signs
Temp Pulse Resp BP Pulse Ox
97.4 F 56 16 188/64 95
01/31/24 07:52 01/31/24 09:10 01/31/24 07:52 01/31/24 09:10 01/31/24 07:52
Intake and Output
01/30/24 01/31/24 02/01/24
06:59 06:59 06:59
Intake Total 870 / 870 2009
Output Total 1250 / 1250 750 / 750
Balance -380 / -380 1260 / 1260
Intake:
Oral fluids 720 / 720 1860 / 1860
IV fluids (Total) 150 / 150
IV piggybacks 150 / 150
Output:
Urine, Voided 1250 / 1250 750 / 750
Other:
Number of approximated MODERATE 1
amounts of urine
Number of approximated LARGE 1 1
amounts of urine
How many times incontinent 1 2
MODERATE amount urine
How many times incontinent 1 1
SATURATED amount urine
Lab Results
01/31/24 05:42
01/31/24 05:42
Calcium 8.6 mg/dl (8.4-10.2) 01/31/24 05:42
Magnesium 2.3 mg/dl (1.6-2.3) 01/31/24 05:42
Total Bilirubin 0.5 mg/dl (0.2-1.3) 01/25/24 05:39
AST 20 U/L (14-36) 01/25/24 05:39
ALT 15 U/L (0-35) 01/25/24 05:39
Alkaline Phosphatase 117 U/L (38-126) 01/25/24 05:39
Total Protein 6.4 g/dl (6.3-8.2) 01/25/24 05:39
Albumin 3.0 g/dl (3.5-5.0) L 01/25/24 05:39
Physical Exam
-
AAOx3
No tachycardia
Nonlabored respirations
Left lower extremity incisions RAFITA, no evidence hematoma, leg soft, mild edema, ana well-approximated
Left foot warm with Doppler DP signal
--- NOTE | 2024-01-31 09:33 | W.PN.HOSP.TC ---
Today's Communication/Plan
-
see A/P
Assessment / Plan
Assessment / Plan
A/P:
# Left Lower Ext Cellulitis with nonhealing Left Heel Wound and Critical limb threatening ischemia of left lower extremity
s/p diagnostic angiogram 01/23
s/p bypass surgery 01/26
was on vanco/zosyn but appears allergic to zosyn, changed to cefepime/vanco per ID, to complete 10/ days
cont gabapentin, oxycodone and IV morphine PRN for pain control
PT/OT recc SNF
# Diarrhea with C. diff antigen positive toxin negative, suspect colonization
continue oral vanco prophylactically while on antibiotics
# Bradycardia
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
monitor BP
# Acute hypoxic resp failure with possible sleep apnea
Pt was on 6L NC, weaned off O2
# Stage 3 left heel pressure injury, POA
# Stage 2 right heel pressure injury, POA
# Stage 2 sacrum pressure injury, POA
# h/o Recent Right lower extremity bypass for critical limb threatening ischemia in September 2023
# Residual right heel wound
# Coronary Artery Disease s/p SINDHU
Continue Isosorbide
Continue Aspirin
# Chronic Diastolic Hearty Failure
Continue Lasix
Monitor Is&Os and Daily Weights
# Essential Hypertension
Continue Hydralazine, holding EXPERIMENTAL DISPLAY BUILDER Atenolol
# Hyperlipidemia
Continue atorvastatin
# Diabetes Mellitus, Type II
HgbA1c 5.9%
Monitor sugars and continue coverage insulin
# Anxiety/Depression
Continue Lexapro
# Class II Obesity
Affects all aspects of care
# Tobacco Use Disorder
Encourage smoking cessation
# Mild hyponatremia, resolved
DVT proph: Lovenox SQ
Code Status: Full Code
Dispo planning to SNF
Anticipated Discharge: Within 24 hours
Subjective/Interval History
-
Date of Service: January 31, 2024
Objective Data
-
Labs:
Laboratory Results
01/31/24
05:42
WBC 12.2 H
Hgb 9.0 L
Hct 29.5 L
Plt Count 407 H
Sodium 137
Potassium 3.7
Chloride 105
Carbon Dioxide 28
BUN 20 H
Creatinine 0.9
Glucose 80
Calcium 8.6
Vital Signs:
Vital Signs
Temp Pulse Resp BP Pulse Ox
36.3 C 56 16 188/64 95
01/31/24 07:52 01/31/24 09:10 01/31/24 07:52 01/31/24 09:10 01/31/24 07:52
I&O
01/30/24 01/31/24 02/01/24
06:59 06:59 06:59
Intake Total 870 / 870 2009
Output Total 1250 / 1250 750 / 750
Balance -380 / -380 1260 / 1260
Review of Systems
-
All other systems: Reviewed and negative
Physical Exam
-
General: Well Developed, Well Nourished, No Apparent Distress, Comfortable and Conversant
HEENT: Normocephalic and Atraumatic; Negative Oxygen
Respiratory: Clear to Auscultation and Non Labored Respirations; Negative Accessory Resp Muscle Use
Cardiac: Regular Rhythm and S1/S2; Negative Murmur
GI: Soft, Nontender, Nondistended and Normal Bowel Sounds
Musculoskeletal: No Clubbing, No Cyanosis and No Edema (ana in place to lower leg)
Skin: Warm
Neuro: Awake
Psych: Calm and Intact Judgement/Insight
Data Reviewed
-
Ultrasound: Report Reviewed by me
Labs: Labs Reviewed by me
[2024-01-31] MEDS: BENADRYL 25 MG PO ×2 (11:30→17:34)
[2024-01-31 12:02] LABS: Glucose - Point of Care 158 mg/dl (70-99)
[2024-01-31] MEDS: VANCOCIN 150 IV (12:06)
--- NOTE | 2024-01-31 12:46 | W.PN.ID1 ---
Date of Service
Date of Service: January 31, 2024
Today's Communication
DC cefepime and IV Vancomycin.
Continue prophylactic oral Vancomycin bid through 02/03.
Assessment / Plan
# Left heel wound infection resolving.
# Chronic right medial heel wound - improving.
# PAD - s/p LLE bypass 01/27/24. hx RLE bypass (09/2023)
# Leukocytosis resolving
# MRSA colonization.
# Drug rash vs. IV infiltration from Zosyn
- Discontinue cefepime (d11 abx)
- Discontinue Vancomycin (d11 of 10)
# Diarrhea - resolved
- C. diff Ag+, toxin negative
- suspect colonization
- Continue prophylactic oral Vancomycin bid through 02/03.
#Additional Past Medical History:
Hypertension
COPD
Rheumatoid arthritis
CAD status post stent
Fatty liver
Wheelchair-bound
Urinary incontinence
Depression/anxiety
PAD s/p R fem to peroneal artery bypass (10/06/23)
Chronic pain syndrome
Skin cancer excision
Overactive bladder
Urinary incontinence
Class III obesity BMI 39
Venous stasis
Alcohol use disorder
Tobacco abuse
Bilateral total knee replacement
Left total hip replacement
L5-S1 hemilaminectomy
Cervical spine surgery
Foot surgeries with hardware
Chief Complaint
-: Other (Wound)
Subjective / Review of Systems
No complaints.
Vital Signs / Physical Exam
Vital Signs
Vital Signs
Temp Pulse Resp BP Pulse Ox
97.7 F 63 18 159/45 97
01/31/24 11:41 01/31/24 11:41 01/31/24 11:41 01/31/24 11:41 01/31/24 11:41
Physical Exam
Constitutional: No Acute Distress and Comfortable
Pulmonary: Clear
Gastrointestinal: Soft, Non Tender and Non Distended
Wound: Other (left posterior heel wound clean. right medial heel wound granulating tissue, no surrounding erythema)
Objective Data
Lab Data
Lab Results
01/31/24 05:42
01/31/24 05:42
PT 15.9 Sec (11.4-14.6) H 01/27/24 17:40
INR 1.26 01/27/24 17:40
APTT 34.9 Sec (23.4-35.0) 01/27/24 17:40
Estimated Creat Clear 61 ml/min 01/31/24 05:42
Lactic Acid 2.4 mmol/L (0.7-2.0) H 01/28/24 03:43
Total Bilirubin 0.5 mg/dl (0.2-1.3) 01/25/24 05:39
AST 20 U/L (14-36) 01/25/24 05:39
ALT 15 U/L (0-35) 01/25/24 05:39
Alkaline Phosphatase 117 U/L (38-126) 01/25/24 05:39
Most recent labs reviewed.
Micro Results:
01/26/24 13:15 Salmonella/Shigella Culture - Final
Feces/Stool No Salmonella, Shigella, Aeromonas or Plesiomonas species
isolated.
Campylobacter Culture - Final
No Campylobacter species isolated.
Shiga Toxin Test - Final
No E. coli Shiga Toxin 1 or 2 detected.
01/26/24 13:15 C. difficile GDH Antigen & Toxins - Final
Feces/Stool C. difficile antigen positive, toxin negative.
Clostridium difficile present, but toxin not detected.
Patient may be a carrier, colonized with nontoxinogenic
strain or the level of toxin in sample is below detection
limits. This information should be used in conjunction with
the patient's clinical history.
- Final
Negative for Norovirus GI and GII.
01/21/24 11:25 Blood Culture - Final
Blood/Venous No Growth - Final Report
01/21/24 CXR negative
01/21/24 R Foot XRAY: Soft tissue swelling. No definite radiographic evidence of osteomyelitis.�
[2024-01-31] MEDS: NOVOLOG FLEXPEN-MODERATE RESISTANCE 1 UNITS SC (13:30)
[2024-01-31] MEDS: APRESOLINE 5 MG IV (16:09)
--- NOTE | 2024-01-31 16:14 | CM ---
Reviewed the chart notes and spoke with the patient at the bedside. IMM signed and placed on the chart. [facility] unable to accept patient due to high acuity. Rd continues to review. Patient agreeable to additional referrals being sent out
in the [place] area. CM continues to be available to patient/family and is monitoring medical plan for needs at discharge.
Plan: Discharge to SNF/rehab once bed found.
[2024-01-31 16:39] LABS: Glucose - Point of Care 102 mg/dl (70-99)
[2024-01-31] MEDS: LEXAPRO 20 MG PO (17:30)
[2024-01-31] MEDS: LIPITOR 80 MG PO (17:31)
[2024-01-31] MEDS: LOVENOX 40 MG SC (17:31)
[2024-01-31 21:21] LABS: Glucose - Point of Care 116 mg/dl (70-99)
[2024-02-01 03:00] VITALS: BP 164/57
[2024-02-01 05:35] LABS: Hematocrit 30.2 % (37.0-47.0); Hemoglobin 9.5 g/dL (12.0-16.0); Mean Corp Hgb Conc. 31.5 g/dL (33.0-37.0); Mean Corpuscular Hgb 27.7 pg (27.0-31.0); Platelet Count 426 10^3/uL (130-400); Red Blood Cell Count 3.43 10^6/uL (4.20-5.40); Red Cell Dist. Width 16.1 % (11.5-14.5); White Blood Cell Count 13.4 10^3/uL (4.8-10.8)
[2024-02-01 06:00] VITALS: BMI 37.3
[2024-02-01 06:06] LABS: Blood Urea Nitrogen 19 mg/dl (7-17); Calcium 8.7 mg/dl (8.4-10.2); Carbon Dioxide 31 mmol/L (22-30); Chloride 101 mmol/L (98-107); Estimated Creatinine Clearance 61 ml/min; Glucose 79 mg/dl (70-99); Magnesium 2.1 mg/dl (1.6-2.3); Potassium 3.8 mmol/L (3.5-5.1); Sodium 138 mmol/L (135-145); eGFR > 60.00
[2024-02-01 08:04] LABS: Glucose - Point of Care 95 mg/dl (70-99)
[2024-02-01 08:12] VITALS: BP 194/59
[2024-02-01] MEDS: VITAMIN D3 (cholecalciferol) 25 MCG PO (08:22)
[2024-02-01] MEDS: NEURONTIN 100 MG PO ×2 (08:22→16:04)
[2024-02-01] MEDS: APRESOLINE 50 MG PO ×2 (08:22→15:58)
[2024-02-01] MEDS: IMDUR (EXTENDED RELEASE) 60 MG PO (08:22)
[2024-02-01] MEDS: SENOKOT 8.59999999999999964 MG PO (08:22)
[2024-02-01] MEDS: ASPIR LOW (ENTERIC COATED) 81 MG PO (08:22)
[2024-02-01] MEDS: FIRVANQ 125 MG PO (08:23)
[2024-02-01] MEDS: LIDOCAINE 4% PATCH 1 PATCH TOPICAL (08:23)
[2024-02-01] MEDS: DAKIN'S SOLUTION 0.125% 1/4 STRENGTH 1 ML TOPICAL (08:23)
[2024-02-01] MEDS: NOVOLOG FLEXPEN-MODERATE RESISTANCE SC (08:23)
[2024-02-01] MEDS: THERAGRAN 1 TABLET PO (08:24)
[2024-02-01] MEDS: LASIX 40 MG PO (08:24)
[2024-02-01] MEDS: PERCOCET 5/325 1 TABLET PO ×3 (08:40→17:25)
[2024-02-01] MEDS: BENADRYL 25 MG PO ×2 (08:40→16:04)
--- NOTE | 2024-02-01 10:07 | W.PN.HOSP.TC ---
Addendum entered and electronically signed by Netta Segovia MD 02/01/24 14:29:
total DC time 35 min
Original Note:
Today's Communication/Plan
-
for SNF
Assessment / Plan
Assessment / Plan
A/P:
# Left Lower Ext Cellulitis with nonhealing Left Heel Wound and Critical limb threatening ischemia of left lower extremity
s/p diagnostic angiogram 01/23
s/p bypass surgery 01/26
was on vanco/zosyn but appears allergic to zosyn, changed to cefepime/vanco per ID, completed 08/24 days
cont gabapentin, oxycodone and IV morphine PRN for pain control
PT/OT recc SNF
# Diarrhea with C. diff antigen positive toxin negative, suspect colonization
continue oral vanco prophylactically through 02/03.
# Bradycardia
Holding TABLEAU REPORT DEVELOPER atenolol, HR improved
monitor BP
# Acute hypoxic resp failure with possible sleep apnea, resolved
Pt was on 6L NC, weaned off O2 now on RA
# Stage 3 left heel pressure injury, POA
# Stage 2 right heel pressure injury, POA
# Stage 2 sacrum pressure injury, POA
# h/o Recent Right lower extremity bypass for critical limb threatening ischemia in September 2023
# Residual right heel wound
# Coronary Artery Disease s/p SINDHU
Continue Isosorbide
Continue Aspirin
# Chronic Diastolic Hearty Failure
Continue TABLEAU REPORT DEVELOPER Lasix
Monitor Is&Os and Daily Weights
# Essential Hypertension
Increase Hydralazine from 50 mg daily to TID
Cont TABLEAU REPORT DEVELOPER Imdur
holding TABLEAU REPORT DEVELOPER Atenolol with bradycardia
IV hydralazine PRN
# Hyperlipidemia
Continue atorvastatin
# Diabetes Mellitus, Type II
HgbA1c 5.9%
Monitor sugars and continue coverage insulin
# Anxiety/Depression
Continue Lexapro
# Class II Obesity
Affects all aspects of care
# Tobacco Use Disorder
Encourage smoking cessation
# Mild hyponatremia, resolved
# Difficulty with swallowing?
SPL eval
DVT proph: Lovenox SQ
Code Status: Full Code
Dispo planning to SNF
Anticipated Discharge: 24 - 48 hours
Subjective/Interval History
-
Date of Service: February 01, 2024
Objective Data
-
Labs:
Laboratory Results
02/01/24
04:20
WBC 13.4 H
Hgb 9.5 L
Hct 30.2 L
Plt Count 426 H
Sodium 138
Potassium 3.8
Chloride 101
Carbon Dioxide 31 H
BUN 19 H
Creatinine 0.9
Glucose 79
Calcium 8.7
Vital Signs:
Vital Signs
Temp Pulse Resp BP Pulse Ox
36.4 C 67 16 194/59 96
02/01/24 08:48 02/01/24 08:22 02/01/24 08:48 02/01/24 08:22 02/01/24 08:48
I&O
01/31/24 02/01/24 02/02/24
06:59 06:59 06:59
Intake Total 2009 1450 / 1450
Output Total 750 / 750 850 / 850
Balance 1260 / 1260 600 / 600
Review of Systems
-
All other systems: Reviewed and negative
Physical Exam
-
General: Well Developed, Well Nourished, No Apparent Distress, Comfortable and Conversant
HEENT: Normocephalic and Atraumatic; Negative Oxygen
Respiratory: Clear to Auscultation and Non Labored Respirations; Negative Accessory Resp Muscle Use
Cardiac: Regular Rhythm and S1/S2; Negative Murmur
GI: Soft, Nontender, Nondistended and Normal Bowel Sounds
Musculoskeletal: No Clubbing, No Cyanosis and No Edema (ana in place to lower leg)
Skin: Warm
Neuro: Awake
Psych: Calm and Intact Judgement/Insight
Data Reviewed
-
Ultrasound: Report Reviewed by me
Labs: Labs Reviewed by me
[2024-02-01 10:15] VITALS: BP 133/43
[2024-02-01 11:00] VITALS: BP 133/43
[2024-02-01 12:01] LABS: Glucose - Point of Care 165 mg/dl (70-99)
--- NOTE | 2024-02-01 12:35 | CM ---
Addendum entered by Sarah Beth Dooley RN 02/01/24 13:54:
CM spoke with the patient CM Lelo and informed of discharge time of 5:00pm. Lelo will pick remover the patient's wheelchair and deliver it to the facility.
Original Note:
Reviewed the chart notes and spoke with the patient at bedside and Lelo the patient's private CM via telephone. Lelo requested additional referrals be sent to specific facilities. Referrals were sent and offers from [facility] were received. [facility] and patient accepted [facility]. No precert required. CM continues to be available to patient/family and is monitoring medical plan for needs at discharge.
Plan: Discharge to [facility] today.
Call report to: [phone]
Fax report to: [phone]
Medical necessity and transport forms on chart.
[2024-02-01] MEDS: NOVOLOG FLEXPEN-MODERATE RESISTANCE 1 UNITS SC (12:37)
--- NOTE | 2024-02-01 14:00 | W.PN.VS ---
Today's Communication / Plan
-
See plan below.
Assessment/Plan
-
Assessment: 78-year-old female POD #6 left femoral to peroneal artery bypass with ipsilateral nonreversed vein
Plan:
PT OT
Plan for transfer to [facility] today
Outpatient follow-up in discharge instructions
Subjective Data
-
Date of Service: February 01, 2024
Patient seen and examined at bedside, offers no complaints. Denies nausea, fever, chills, vomiting. Reports past improvement in left foot redness and swelling.
Objective Data
-
Vital Signs
Temp Pulse Resp BP Pulse Ox
97.4 F 60 16 133/43 96
02/01/24 11:00 02/01/24 11:00 02/01/24 11:00 02/01/24 11:00 02/01/24 13:20
Intake and Output
01/31/24 02/01/24 02/02/24
06:59 06:59 06:59
Intake Total 2009 1450 / 1450
Output Total 750 / 750 850 / 850
Balance 1260 / 1260 600 / 600
Intake:
Oral fluids 1860 / 1860 1300 / 1300
IV fluids (Total) 150 / 150
IV piggybacks 150 / 150
Output:
Urine, Voided 750 / 750 850 / 850
Other:
Number of approximated SMALL 1
amounts of urine
Number of approximated MODERATE 1
amounts of urine
Number of approximated LARGE 1
amounts of urine
How many times incontinent 1
SMALL amount urine
How many times incontinent 2
MODERATE amount urine
How many times incontinent 1 2
SATURATED amount urine
Lab Results
02/01/24 04:20
02/01/24 04:20
Calcium 8.7 mg/dl (8.4-10.2) 02/01/24 04:20
Magnesium 2.1 mg/dl (1.6-2.3) 02/01/24 04:20
Total Bilirubin 0.5 mg/dl (0.2-1.3) 01/25/24 05:39
AST 20 U/L (14-36) 01/25/24 05:39
ALT 15 U/L (0-35) 01/25/24 05:39
Alkaline Phosphatase 117 U/L (38-126) 01/25/24 05:39
Total Protein 6.4 g/dl (6.3-8.2) 01/25/24 05:39
Albumin 3.0 g/dl (3.5-5.0) L 01/25/24 05:39
Physical Exam
-
AAOx3
No tachycardia
Nonlabored respirations
Left lower extremity incisions RAFITA, no evidence hematoma, leg soft, mild edema, ana well-approximated, palpable graft pulse
Left foot warm
--- NOTE | 2024-02-01 14:02 | W.DCSUMMARY ---
Discharge Summary
Discharge Data
Date of Admission: 01/21/24
Date of Discharge: 02/01/24
-
Pending Results: No
Hospital Course
Principal Diagnosis:
Left Lower Extremity Cellulitis with nonhealing Left Heel Wound and Critical limb threatening ischemia of left lower extremity
Diarrhea with C. diff antigen positive toxin negative, suspect colonization
Bradycardia
Chronic Diagnoses:�
Stage 3 left heel pressure injury, Stage 2 right heel pressure injury, Stage 2 sacrum pressure injury, all present on admission
History of Recent Right lower extremity bypass for critical limb threatening ischemia in September 2023, with residual right heel wound
Coronary Artery Disease status post stent
Chronic Diastolic Hearty Failure
Essential Hypertension, hydralazine increased from 50 mg daily to TID, continue Imdur
Hyperlipidemia on atorvastatin
Diabetes Mellitus, Type II
Anxiety/Depression, continue Lexapro
Class II Obesity
Tobacco Use Disorder
Consultations:�
Vascular surgery
Infectious disease
Procedures:�
Diagnostic angiogram 01/23
bypass surgery 01/26
Clinical course:�
This is a 78-year-old female, with past medical history as stated above, who presented with new wound noted on her left heel.
Problem 1:
Left Lower Extremity Cellulitis with nonhealing Left Heel Wound and Critical limb threatening ischemia of left lower extremity.
She underwent diagnostic angiogram on 01/23, followed by bypass surgery on 01/26 by vascular.
She was initially treated with vanco/zosyn while in the hospital, but Zosyn was changed to cefepime (she appears to be allergic to zosyn) per ID. She completed 10 days course while in the hospital.
She was discharged to SNF per PT OT recommendation.
Problem 2:
Diarrhea with C. diff antigen positive toxin negative, suspect colonization.
She received oral vancomycin prophylactically per ID, continue through 02/03 following discharge.
Problem 3:
Bradycardia.
Her prior to admission atenolol was discontinued and her heart rate improved.
Her prior to admission hydralazine was increased from 50 daily to 3 times daily to better control her blood pressure.
As for the rest of her medical problems, they were stable during her hospital stay.
Discharge Plan
-
Patient Disposition: Long-Term/SNF
Discharge Diagnosis/Procedures: Left Lower Ext Cellulitis with nonhealing Left Heel Wound and Critical limb threatening ischemia of left lower extremity status post diagnostic angiogram 01/23 and bypass surgery 01/26; Diarrhea (C. diff antigen
positive toxin negative) suspect colonization; Bradycardia (atenolol discontinued); Essential Hypertension
Condition: Fair
Diet: As tolerated and Diabetic, Carb Controlled
Activity: As tolerated
Driving Restrictions: Not until seen by your Dr
Bathing Restrictions: OK to Shower
Blood Work: CBC
Wound Care: Wound Care Instructions Stage 2 Sacrum- Clean with soap and water, apply sacral silicone border foam. Change Q 3 days and PRN if loose or soiled.
Left Heel Wound- Clean with 1/4 strength Dakins, apply alginate, cover with silicone foam. Change daily and PRN if soiled
Right Heel Wound- Clean with normal saline or soap and water. Cover with silicone border foam. Change Q 3 days and PRN if loose or soiled.
Static Air overlay
Turning Schedule
Fiber filled boots to bilateral heels as tolerated
Clean barrier ointment to buttocks and zinc ointment to open areas
Avoid sliding in recliner
Wear compression as directed
Keep abdominal skin folds clean and dry
Follow up at wound care center call for an appointment.
Activity Restrictions/Additional Instructions:
Surgical Incisions: May leave stable sites open to air. If preferred to be covered, can apply clean dry gauze daily. [place] will be removed at office visit.
Follow up with your PCP/creel selector for your chronically elevated white count.
Follow-up with gastroenterology outpatient for your possible dysphagia.
Referrals:
Jessica Valenzuela PA-C [Specified Professional Personl] - 02/15/24 9:30 am (Vascular follow up)
Danilo Ortiz DO [Family Provider] - in less than 1 week
Additional Discharge Medication Instructions: Increase Hydralazine from 50 mg daily to three times a day for better BP control.
Stop Atenolol due to slow heart rate
Continue Vancomycin prophylactic dose 125 mg BID through 02/03.
Prescriptions:
New
hydralazine 50 mg Tablet
50 mg PO TID Qty: 90 0RF
sennosides [Senna Laxative] 8.6 mg Tablet
8.6 mg PO BID Qty: 60 0RF
vancomycin 125 mg capsule
125 mg PO BID 3 Days Qty: 6 0RF
Continued
isosorbide mononitrate 60 MG tablet extended release 24 hr
60 mg PO DAILY
aspirin 81 MG tablet,delayed release (DR/EC)
81 mg PO DAILY
escitalopram oxalate 20 MG tablet
20 mg PO QPM
albuterol sulfate 90 mcg/actuation Hfa Aerosol Inhaler
1 puff INHALATION R Q4HPRN PRN (Reason: shortness of breath)
Neuriva Original 100-100 mg Capsule
1 cap PO DAILY
Garlique
1 tab PO DAILY
Probiotic
1 gummy PO DAILY
gabapentin 100 mg capsule
100 mg PO HS
Patient Comments:
01/21/2024, prescribed TID but pt. takes HS.
atorvastatin 80 mg Tablet
80 mg PO QPM
ibuprofen [Advil Liqui-Gel] 200 mg Capsule
200 mg PO .AFTERNOON
furosemide 20 mg Tablet
40 mg PO DAILY
Dakin's Solution 0.25 % Solution
1 applic TOPICAL .SEE BELOW
Patient Comments:
01/21/2024, prescribed to be applied to right heel daily; however, home care nurses only come to pt.'s home 3 times a week and caregiver does not believe pt. to be applying this med. on herself when they are not there.
cholecalciferol (vitamin D3) 25 mcg (1,000 unit) Tablet
25 mcg PO DAILY
multivit with min-folic acid [Multivitamin Gummies] 200 mcg Tablet,Chewable
1 tab PO DAILY
Beet Root
1 gummy PO .MID-DAY
apple cider vinegar
1 gummy PO DAILY@1200
hydrocodone-acetaminophen 10-325 mg Tablet
1 tab PO [id number] PRN (Reason: severe pain) Qty: 5 0RF
Patient Comments:
01/21/2024, pt. filled this med. on 08/04/2023 for 120 tablets per PDMP.
Discontinued
atenolol 25 MG tablet
50 mg PO HS
Patient Comments:
hydralazine 50 mg tablet
50 mg PO DAILY
Patient Comments:
01/21/2024, prescribed Q8H but pt. takes daily.
Discharge Orders:
Discharge Patient (As Directed); Ordered 02/01/24
Ordered By: Netta Segovia
--- NOTE | 2024-02-01 14:14 | PTOTSP ---
Dysphagia Evaluation
Oral stage WFL. No signs concerning for pharyngeal dysphagia or aspiration at time of evaluation. Consider administering pills whole and/or crushed in puree given patient/nurse report of immediate coughing/burping/gagging when taking pills whole
with water.
Patient reported chronic mucus production which is worse in the morning and when laying flat. She denied signs of reflux but has a history of a hiatal hernia. Consider GI consult to rule out esophageal dysphagia given c/o mucus which per patient
increases after laying flat and eating/drinking/taking pills. If this is unremarkable, consider ENT consult.
Recommend:
1. Regular, Thin Liquids
2. Medications - whole and/or crushed in puree
3. Strategies: upright for PO intake, remain upright for at least 30 minutes after eating/drinking as a reflux precaution
[2024-02-01 16:00] VITALS: BP 174/53
[2024-02-01] MEDS: TYLENOL 325 MG PO (16:50)
== END 2024-02-01 17:47 | DRG 252 ==
LOC: 2 NORTH 15:17
PROVIDERS: Internal Medicine; Nurse Practitioner; Nurse Practitioner Acute Care; Nurse Practitioner Primary Care; Physician Assistant Medical; Surgery Vascular Surgery; ADMITTING PHYSICIAN Internal Medicine; CONSULT PHYSICIAN Internal Medicine Critical Care Medicine; CONSULT PHYSICIAN Internal Medicine Infectious Disease; CONSULT PHYSICIAN Surgery Vascular Surgery; EMERGENCY PHYSICIAN Emergency Medicine; FAMILY PHYSICIAN Family Medicine
PROC: B40F1ZZ Plain Radiography of Right Lower Extremity Arteries using Low Osmolar Contrast (ICD-10-PCS; 2024-01-24)
PROC: B40G1ZZ Plain Radiography of Left Lower Extremity Arteries using Low Osmolar Contrast (ICD-10-PCS; 2024-01-24)
PROC: 041L09M Bypass Left Femoral Artery to Peroneal Artery with Autologous Venous Tissue, Open Approach (ICD-10-PCS; 2024-01-27)
PROC: 30233N1 Transfusion of Nonautologous Red Blood Cells into Peripheral Vein, Percutaneous Approach (ICD-10-PCS; 2024-01-27)
DX: I70.244 Atherosclerosis of native arteries of left leg with ulceration of heel and midfoot (principal); L89.623 Pressure ulcer of left heel, stage 3; L03.116 Cellulitis of left lower limb; D62 Acute posthemorrhagic anemia; I50.32 Chronic diastolic (congestive) heart failure; E87.1 Hypo-osmolality and hyponatremia; E11.51 Type 2 diabetes mellitus with diabetic peripheral angiopathy without gangrene; L97.429 Non-pressure chronic ulcer of left heel and midfoot with unspecified severity; E66.01 Morbid (severe) obesity due to excess calories; I11.0 Hypertensive heart disease with heart failure; I25.10 Atherosclerotic heart disease of native coronary artery without angina pectoris; F32.A Depression, unspecified; F41.9 Anxiety disorder, unspecified; L27.0 Generalized skin eruption due to drugs and medicaments taken internally; T36.0X5A Adverse effect of penicillins, initial encounter; J44.9 Chronic obstructive pulmonary disease, unspecified; F17.210 Nicotine dependence, cigarettes, uncomplicated; Z68.37 Body mass index [BMI] 37.0-37.9, adult; Z95.5 Presence of coronary angioplasty implant and graft
CPT/HCPCS: 35566; 36246; 71045; 71046; 73620; 75625; 75716; 76937; 80048; 80053; 80202; 82962; 83036; 83605; 83735; 83880; 85014; 85018; 85025; 85027; 85610; 85730; 86850; 86900; 86901; 86920; 87040; 87045; 87046; 87324; 87427; 87449; 87798; 92610; 93005; 93922; 93925; 93970; 93971; 94640; 96365; 96367; 96375; 97162; 97164; 97166; 97530; 97535; 99214; 99285; C1894; P9016; P9045; Q9967

== ENCOUNTER → 2024-03-17 09:35 | Outpatient (REF) | payer MEDICARE, OTHER, SELFPAY | LOC: RAD 09:35 | PROVIDERS: ATTENDING PHYSICIAN Surgery Vascular Surgery; FAMILY PHYSICIAN Family Medicine | DX: I73.9 Peripheral vascular disease, unspecified (principal) | CPT/HCPCS: 93922; 93925 ==

== ENCOUNTER → 2024-09-22 10:15 | Outpatient (REF) | payer MEDICARE, OTHER, SELFPAY | LOC: RAD 10:15 | PROVIDERS: ATTENDING PHYSICIAN Surgery Vascular Surgery | DX: I73.9 Peripheral vascular disease, unspecified (principal) | CPT/HCPCS: 93922; 93925 ==

== ENCOUNTER → 2025-06-15 13:01 | Outpatient (REF) | payer MEDICARE, OTHER, SELFPAY | LOC: RAD 13:01 | PROVIDERS: ATTENDING PHYSICIAN Registered Nurse | DX: I73.9 Peripheral vascular disease, unspecified (principal) | CPT/HCPCS: 93922; 93925 ==

== ENCOUNTER → 2025-09-25 10:09 | Outpatient (REF) | payer MEDICARE, OTHER, SELFPAY | LOC: RAD 10:09 | PROVIDERS: ATTENDING PHYSICIAN Registered Nurse | DX: I73.9 Peripheral vascular disease, unspecified (principal) | CPT/HCPCS: 93922; 93925 ==